=== PATIENT | female | born 1965 | race Caucasian/White ===

== ENCOUNTER 2019-11-10 10:53 | Emergency (ER) | payer SELFPAY ==
[2019-11-10 10:55] VITALS: BP 125/84; PULSE 75; RESP 18; TEMP 36.4; O2SAT 99; BMI 25.4
--- NOTE | 2019-11-10 11:00 | ED_ITS ---
Entered by Kyra Mora, acting as scribe for Nov 10, 2019 10:53 HPI - General Adult General: Chief complaint: Chest Pain Stated complaint: Sick Time Seen by Provider: 11/10/19 10:57 Source: patient Mode of arrival: ambulatory Limitations: no limitations History of Present Illness: HPI narrative: 54 yo female presents with nausea. pt states this started yesterday. pt states she has had swelling to feet but she has CHF so she just thought that was normal. pt has had abdomen tenderness. pt denies any other symptoms at this time. MD complaint: nausea Onset (ago): day(s) (last night) Location: abdomen Severity: moderate Pain Consistency: constant Relieving factors: none Exacerbating factors: movement Associated symptoms: Reports nausea; Deny chest pain, dyspnea, malaise or rash Review of Systems Const: Denies: fever, chills, body aches, change in appetite, fatigue or malaise ENMT: Denies: throat pain, ear pain, nasal discharge or nasal congestion Card: Denies: chest pain, edema, shortness of breath on exertion or shortness of breath when lying down Resp: Denies: shortness of breath, productive cough or non-productive cough GI: Reports: nausea : Denies: flank pain, difficulty urinating, painful urination, urinary frequency or urinary urgency Skin/Breast: Denies: rash or itching PFSH ED PFSH: Statuses (acute, chronic, etc) shown below reflect problem list status as previously entered and may not be historically accurate Medical History CHF (congestive heart failure) (Acute) History of anemia (Acute) History of chronic hypertension (Acute) History of CVA (cerebrovascular accident) (Acute) History of diabetes mellitus (Acute) History of pulmonary embolism (Acute) Social History Smoking and tobacco status: never smoked Physical Exam Const: COMMON NORMALS: no apparent distress GENERAL APPEARANCE: cooperative and comfortable ORIENTATION/CONSCIOUSNESS: Yes awake, Yes oriented to person, Yes oriented to place and Yes oriented to time HENMT: COMMON NORMALS: normocephalic, head/scalp atraumatic, hearing grossly normal bilaterally, external ears normal, EAC's normal, TM's normal bilaterally, nasal mucous membranes and turbinates normal, moist oral mucous membranes and oropharynx normal HEAD & SCALP: normocephalic and atraumatic NOSE: nasal mucous membranes and turbinates normal EXTERNAL EAR: Yes external ears normal EXTERNAL AUDITORY CANAL: EAC's normal TYMPANIC MEMBRANE: TM's normal bilaterally Eye: COMMON NORMALS: PERRL, EOMs intact bilaterally, conjunctivae normal and no scleral icterus CONJUNCTIVA: Yes conjunctivae normal PUPIL: Yes PERRL Neck/C-Spine: COMMON NORMALS: full ROM, no lymphadenopathy, supple and no JVD Lymph: LYMPHATIC: no lymphadenopathy noted and no lymphedema noted Resp: COMMON NORMALS: normal respiratory effort, no retractions, no use of accessory muscles and clear to auscultation bilaterally AUSCULTATION: clear to auscultation bilaterally Cardio: COMMON NORMALS: no JVD, regular rate, regular rhythm and no murmurs RATE: regular rate RHYTHM: regular rhythm Extremity: COMMON NORMALS: normal to inspection, normal capillary refill, no clubbing, cyanosis or edema, no calf tenderness and no pedal edema Neuro: SENSORIUM/ORIENTATION: Yes oriented to person, Yes oriented to place and Yes oriented to time Skin: COMMON NORMALS: no rashes or lesions noted GENERAL SKIN EXAM: no rashes or lesions noted Course ED course: Antiemetics PRN follow-up as needed return to ER if worsePatient's only persisting symptoms and nausea did improve some with antiemetics and fluids. Will discharge home clear liquid diet Vital Signs: Vital signs: Vital Signs Temperature 97.6 F 11/10/19 10:55 Pulse Rate 83 11/10/19 14:10 Respiratory Rate 15 11/10/19 14:10 Blood Pressure 115/77 11/10/19 14:10 Pulse Oximetry 98 11/10/19 14:10 [facility] - General Adult Lab Data: Labs: Lab Results 11/10/19 11/10/19 11/10/19 Range/Units 11:18 11:18 11:18 WBC 14.2 H (4.0-10.0) 10^3/ uL RBC 5.12 (4.1-5.3) 10^6/u L Hgb 14.4 (11.5-15.3) g/dL Hct 43.9 (37.0-47.0) % MCV 85.7 (81-99) fL MCH 28.1 (28.0-34.0) pg MCHC 32.8 (30.0-36.0) g/dL RDW 12.5 (12.1-15.1) % Plt Count 364 (130-400) 10^3/c mm MPV 9.8 (7.4-10.4) fL Neut % (Auto) 85.6 % Lymph % (Auto) 5.9 % Luce % (Auto) 6.5 % Eos % (Auto) 1.2 % Baso % (Auto) 0.4 % Neut # (Auto) 12.2 H (1.8-7.7) 10^3/u L Lymph # (Auto) 0.8 (0.8-4.8) 10^3/u L Luce # (Auto) 0.9 (0.2-0.9) 10^3/u L Eos # (Auto) 0.2 (0.0-0.8) 10^3/u L Baso # (Auto) 0.1 (0.0-0.1) 10^3/u L Nucleated RBC % (a uto) 0 % Nucleated RBCs # 0.0 /100WBC PT 13.50 H (10.5-13.3) SECO NDS INR 1.00 (0.8-1.2) Specimen Type Sample Site ABG pH (7.35-7.45) ABG pCO2 (35-45) mmHg ABG pO2 (80.0-100.0) mmH g ABG HCO3 (22-26) mmol/L ABG Base Excess (-2.0-2.0) mmol/ L Navarro Test Hematocrit (37-47) % O2 Delivery Device Detector Car Operator ID Sodium 138 (136-145) mmol/L Potassium 4.4 (3.5-5.1) mmol/L Chloride 99 (98-107) mmol/L Carbon Dioxide 23 (22-29) mmol/L Anion Gap 20.4 H (5-19) BUN 12 (6-20) mg/dL Creatinine 0.6 (0.5-0.9) mg/dL GFR Calculation 104.2 (90-130) mL/min Glucose 161 H (74-109) mg/dL Calcium 9.8 (8.6-10.0) mg/Dl Total Bilirubin 0.7 (0.15-1.2) mg/dL AST 16 (0-32) U/L ALT 7 (0-33) U/L Alkaline Phosphata se 95 (35-105) IU/L Troponin T Baselin e (0-10) ng/mL Troponin T 120 Min te-moak (0-10) ng/mL Delta Troponin T (0-10) ABS# Total Protein 7.7 (6.6-8.7) g/dL Albumin 5.2 (3.5-5.2) g/dL Globulin 2.5 (1.3-4.6) g/dL Lipase 58 (13-60) U/L Urine Color (Yellow) Urine Appearance (CLEAR) Urine pH (5-7) Ur Specific Gravit y (1.005-1.030) Urine Protein (Negative) Urine Glucose (UA) (Normal) Urine Ketones (Negative) Urine Occult Blood (Negative) Urine Nitrate (Negative) Urine Bilirubin (NEGATIVE) Urine Urobilinogen (Negative) mg/dL Ur Leukocyte Nancy ase (Negative) Urine RBC (0-2) /hpf Urine WBC (0-5) /hpf Ur Squamous Epith Cells (0-5) Urine Bacteria (NONE) 11/10/19 11/10/19 11/10/19 Range/Units 11:18 11:40 12:35 WBC (4.0-10.0) 10^3/ uL RBC (4.1-5.3) 10^6/u L Hgb (11.5-15.3) g/dL Hct (37.0-47.0) % MCV (81-99) fL MCH (28.0-34.0) pg MCHC (30.0-36.0) g/dL RDW (12.1-15.1) % Plt Count (130-400) 10^3/c mm MPV (7.4-10.4) fL Neut % (Auto) % Lymph % (Auto) % Luce % (Auto) % Eos % (Auto) % Baso % (Auto) % Neut # (Auto) (1.8-7.7) 10^3/u L Lymph # (Auto) (0.8-4.8) 10^3/u L Luce # (Auto) (0.2-0.9) 10^3/u L Eos # (Auto) (0.0-0.8) 10^3/u L Baso # (Auto) (0.0-0.1) 10^3/u L Nucleated RBC % (a uto) % Nucleated RBCs # /100WBC PT (10.5-13.3) SECO NDS INR (0.8-1.2) Specimen Type Arterial Sample Site Radial, right ABG pH 7.41 (7.35-7.45) ABG pCO2 32.9 L (35-45) mmHg ABG pO2 88.5 (80.0-100.0) mmH g ABG HCO3 20.9 L (22-26) mmol/L ABG Base Excess -2.9 L (-2.0-2.0) mmol/ L Navarro Test Pos Hematocrit 44.3 (37-47) % O2 Delivery Device Room air Detector Car Operator ID jmn Sodium (136-145) mmol/L Potassium (3.5-5.1) mmol/L Chloride (98-107) mmol/L Carbon Dioxide (22-29) mmol/L Anion Gap (5-19) BUN (6-20) mg/dL Creatinine (0.5-0.9) mg/dL GFR Calculation (90-130) mL/min Glucose (74-109) mg/dL Calcium (8.6-10.0) mg/Dl Total Bilirubin (0.15-1.2) mg/dL AST (0-32) U/L ALT (0-33) U/L Alkaline Phosphata se (35-105) IU/L Troponin T Baselin e 10 (0-10) ng/mL Troponin T 120 Min te-moak (0-10) ng/mL Delta Troponin T (0-10) ABS# Total Protein (6.6-8.7) g/dL Albumin (3.5-5.2) g/dL Globulin (1.3-4.6) g/dL Lipase (13-60) U/L Urine Color Yellow (Yellow) Urine Appearance Cloudy (CLEAR) Urine pH 5 (5-7) Ur Specific Gravit y 1.020 (1.005-1.030) Urine Protein Neg (Negative) Urine Glucose (UA) Norm (Normal) Urine Ketones Negative (Negative) Urine Occult Blood Neg (Negative) Urine Nitrate Negative (Negative) Urine Bilirubin Neg (NEGATIVE) Urine Urobilinogen Norm (Negative) mg/dL Ur Leukocyte Nancy ase Negative (Negative) Urine RBC None (0-2) /hpf Urine WBC 0-4 H (0-5) /hpf Ur Squamous Epith Cells 15-25 H (0-5) Urine Bacteria 1+ H (NONE) 11/10/19 Range/Units 13:12 WBC (4.0-10.0) 10^3/ uL RBC (4.1-5.3) 10^6/u L Hgb (11.5-15.3) g/dL Hct (37.0-47.0) % MCV (81-99) fL MCH (28.0-34.0) pg MCHC (30.0-36.0) g/dL RDW (12.1-15.1) % Plt Count (130-400) 10^3/c mm MPV (7.4-10.4) fL Neut % (Auto) % Lymph % (Auto) % Luce % (Auto) % Eos % (Auto) % Baso % (Auto) % Neut # (Auto) (1.8-7.7) 10^3/u L Lymph # (Auto) (0.8-4.8) 10^3/u L Luce # (Auto) (0.2-0.9) 10^3/u L Eos # (Auto) (0.0-0.8) 10^3/u L Baso # (Auto) (0.0-0.1) 10^3/u L Nucleated RBC % (a uto) % Nucleated RBCs # /100WBC PT (10.5-13.3) SECO NDS INR (0.8-1.2) Specimen Type Sample Site ABG pH (7.35-7.45) ABG pCO2 (35-45) mmHg ABG pO2 (80.0-100.0) mmH g ABG HCO3 (22-26) mmol/L ABG Base Excess (-2.0-2.0) mmol/ L Navarro Test Hematocrit (37-47) % O2 Delivery Device Detector Car Operator ID Sodium (136-145) mmol/L Potassium (3.5-5.1) mmol/L Chloride (98-107) mmol/L Carbon Dioxide (22-29) mmol/L Anion Gap (5-19) BUN (6-20) mg/dL Creatinine (0.5-0.9) mg/dL GFR Calculation (90-130) mL/min Glucose (74-109) mg/dL Calcium (8.6-10.0) mg/Dl Total Bilirubin (0.15-1.2) mg/dL AST (0-32) U/L ALT (0-33) U/L Alkaline Phosphata se (35-105) IU/L Troponin T Baselin e (0-10) ng/mL Troponin T 120 Min te-moak 9.22 (0-10) ng/mL Delta Troponin T -0.78 L (0-10) ABS# Total Protein (6.6-8.7) g/dL Albumin (3.5-5.2) g/dL Globulin (1.3-4.6) g/dL Lipase (13-60) U/L Urine Color (Yellow) Urine Appearance (CLEAR) Urine pH (5-7) Ur Specific Gravit y (1.005-1.030) Urine Protein (Negative) Urine Glucose (UA) (Normal) Urine Ketones (Negative) Urine Occult Blood (Negative) Urine Nitrate (Negative) Urine Bilirubin (NEGATIVE) Urine Urobilinogen (Negative) mg/dL Ur Leukocyte Nancy ase (Negative) Urine RBC (0-2) /hpf Urine WBC (0-5) /hpf Ur Squamous Epith Cells (0-5) Urine Bacteria (NONE) Imaging Data^: CXR: Radiologist's impression: [place] [address] XRay Report Signed Patient: Candi Fuller #: [id number] : 1965Acct#:[id number] Age/Sex: 54 / FADM Date: 11/10/19 Loc: ERRoom/Bed: Attending Dr: Ordering Provider/Ordering MD: Saud Esposito DO Date of Service: 11/10/19 Procedure(s): XR chest 1V portable [id number] Accession Number(s): [id number] Report Number: [id number] WS: [id number] Portable AP upright chest, 11/10/2019 Clinical Data: chf Comparison: Portable chest, 11/05/2017. Findings: No nodules, masses or effusions are seen. The heart is normal. The pulmonary vascularity is not increased. No pneumonia or pneumothorax is seen. There may be calcific bursitis or tendinitis of the left greater tuberosity. XR/XR chest 1V portable [id number] Impression: Negative chest. Dictated By:Linda Vale MD Signed By:Linda Vale MDSigned Date/Time:11/10/191214 DD/ 1213 Discharge Plan Discharge Patient Disposition: Home, Self-Care Clinical Impression: Gastroenteritis Condition: Stable Prescriptions: New Zofran 4 mg tablet 4 mg PO Q6H PRN (Reason: nausea and vomiting) Qty: 14 RF: 0 Referrals: Renu Knowles MD [Primary Care Provider] - Discharge Diet: Clear Liquid Discharge Activity: Increase activity as tolerated Activity Restrictions/Additional Instructions: Clear liquid diet for 24 hours then advance as tolerated Discharge Date/Time: 11/10/19 14:11 Coding Level of Care Code ED Screw Down for Chg Fwd Exam Problem Focused The documentation recorded by the Morgan albert Bridget Annette, accurately reflects the service I personally performed and the decisions made by Cate lemos Curtis L, Nov 10, 2019 10:53
--- NOTE | 2019-11-10 11:08 | XR_ITS ---
WS: [id number] Portable AP upright chest, 11/10/2019 Clinical Data: chf Comparison: Portable chest, 11/05/2017. Findings: No nodules, masses or effusions are seen. The heart is normal. The pulmonary vascularity is not increased. No pneumonia or pneumothorax is seen. There may be calcific bursitis or tendinitis of the left greater tuberosity. XR/XR chest 1V portable [id number] Impression: Negative chest.
[2019-11-10 11:23] LABS: Basophils # 0.1 10^3/uL (0.0-0.1); Basophils % 0.4 %; Eosinophils # 0.2 10^3/uL (0.0-0.8); Eosinophils % 1.2 %; Hematocrit 43.9 % (37.0-47.0); Hemoglobin 14.4 g/dL (11.5-15.3); Lymphocytes # 0.8 10^3/uL (0.8-4.8); Lymphocytes % 5.9 %; Mean Corpuscular HGB Conc 32.8 g/dL (30.0-36.0); Mean Corpuscular Hemoglobin 28.1 pg (28.0-34.0); Mean Corpuscular Volume 85.7 fL (81-99); Mean Platelet Volume 9.8 fL (7.4-10.4); Monocytes # 0.9 10^3/uL (0.2-0.9); Monocytes % 6.5 %; Neutrophils # 12.2 10^3/uL (1.8-7.7); Neutrophils % 85.6 %; Nucleated Red Blood Cells % 0 %; Platelet Count 364 10^3/cmm (130-400); Red Blood Count 5.12 10^6/uL (4.1-5.3); Red Cell Distribution Width 12.5 % (12.1-15.1); White Blood Count 14.2 10^3/uL (4.0-10.0)
--- NOTE | 2019-11-10 11:35 | ECG_ITS ---
Measurements Intervals [place] Rate: 68 P: 44 OK: 177 QRS: -43 QRSD: 140 T: 61 QT: 437 QTc: 467 SINUS RHYTHM LEFT AXIS DEVIATION [QRS AXIS < -30] LEFT BUNDLE BRANCH BLOCK [120+ ms QRS DURATION, 80+ ms Q/S IN V1/V2, 85+ ms R IN I/aVL/V5/V6] Compared to ECG 12/22/2018 13:02:49 No significant changes Electronically Signed On 11-11-2019 11:24:04 RADIO MECHANIC HELPER by Garcia Camacho M.D. [email or web address]
[2019-11-10 11:49] LABS: Alanine Aminotransferase 7 U/L (0-33); Albumin Level 5.2 g/dL (3.5-5.2); Alkaline Phosphatase 95 IU/L (35-105); Anion Gap 20.4 (5-19); Aspartate Amino Transferase 16 U/L (0-32); Blood Urea Nitrogen 12 mg/dL (6-20); Calcium 9.8 mg/Dl (8.6-10.0); Carbon Dioxide 23 mmol/L (22-29); Chloride 99 mmol/L (98-107); Globulin 2.5 g/dL (1.3-4.6); Glomerular Filtration Rate 104.2 mL/min (90-130); Glucose 161 mg/dL (74-109); Lipase 58 U/L (13-60); Potassium 4.4 mmol/L (3.5-5.1); Sodium 138 mmol/L (136-145); Total Bilirubin 0.7 mg/dL (0.15-1.2); Total Protein 7.7 g/dL (6.6-8.7)
[2019-11-10 11:56] LABS: ABG PCO2 32.9 mmHg (35-45); ABG PH Result 7.41 (7.35-7.45); Arterial Blood Gas Hematocrit 44.3 % (37-47); Base Excess ABG -2.9 mmol/L (-2.0-2.0); Blood Gas Allen Test Pos; Blood Gas Sample Site Radial, right; Blood Gas Sample Type Arterial; HCO3 ABG 20.9 mmol/L (22-26); Oxygen Device ROOM AIR; PO2 ABG 88.5 mmHg (80.0-100.0)
[2019-11-10 12:07] LABS: Troponin(5th) Baseline 10 ng/mL (0-10)
[2019-11-10 12:52] LABS: Add Urine Microscopic? YES; Bilirubin Urine Neg (NEGATIVE); Blood Urine Neg (Negative); Glucose Urine UA Norm (Normal); Ketones Urine Negative (Negative); Leukocyte Esterase Urine Negative (Negative); Nitrate Urine Negative (Negative); Protein Urine Neg (Negative); Urine Appearance Cloudy (CLEAR); Urine Color Yellow (Yellow); Urobilinogen Urine Norm (Negative); pH Urine 5 (5-7)
[2019-11-10 12:57] LABS: Squamous Epithelial Cell Urine 15-25 (0-5); WBC Urine 0-4 /hpf (0-5)
[2019-11-10 12:58] LABS: Add Urine Culture? No; Bacteria Urine 1+
[2019-11-10 13:35] LABS: Troponin 5 2HR 9.22 ng/mL (0-10)
[2019-11-10 13:36] LABS: Troponin 5 2HR Delta -0.78 ABS# (0-10)
[2019-11-10 14:10] VITALS: BP 115/77; PULSE 83; RESP 15; O2SAT 98
--- NOTE | 2019-11-10 17:35 | ECG_ITS ---
Measurements Intervals [place] Rate: 71 P: 42 CO: 175 QRS: -41 QRSD: 137 T: 99 QT: 435 QTc: 476 SINUS RHYTHM LEFT AXIS DEVIATION [QRS AXIS < -30] Left bundle branch block Compared to ECG 12/22/2018 13:02:49 Electronically Signed On 11-11-2019 11:30:27 LANDSCAPE ARTIST by Garcia Camacho M.D. [email or web address]
== END 2019-11-10 14:11 | disposition home or self-care (01) ==
PROVIDERS: Emergency Provider Family Medicine; Family Provider Internal Medicine; PCP Internal Medicine
DX: K52.9 Noninfective gastroenteritis and colitis, unspecified (principal); I50.9 Heart failure, unspecified; I11.0 Hypertensive heart disease with heart failure; Z86.73 Personal history of transient ischemic attack (TIA), and cerebral infarction without residual deficits; E11.9 Type 2 diabetes mellitus without complications
CPT/HCPCS: 36415; 36600; 71045; 80053; 81003; 82803; 83690; 84484; 85025; 85610; 93005; 99283; A9270

== ENCOUNTER 2019-12-06 12:47 | Outpatient (CLI) | payer SELFPAY ==
--- NOTE | 2019-12-06 13:12 | CT_ITS ---
WS: [id number] CT ABDOMEN PELVIS TECHNIQUE: Contrast-enhanced CT of the abdomen and pelvis with coronal and sagittal reformatted image s. CLINICAL INFORMATION: WEIGHT LOSS, EPIGASTRIC ABDOMINAL PAIN COMPARISON: None. DLP: [id number] scans at [facility] use at least one of these dose optimization techniques: automat ed exposure control; mA and/or kV adjustment per patient size (includes targeted exams where dose is matched to clinical indication); or iterative reconstruction. FINDINGS: Diffuse fatty infiltration of the liver. Portal vein and splenic vein are patent. Cholecystectomy cli ps. Normal spleen. Normal GE junction. Normal pancreas. Normal visualized common bile duct. Adrenal g lands are normal. Normal renal parenchymal enhancement. Lung bases are well aerated. Normal bilatera l renal parenchymal enhancement. No hydronephrosis. No periaortic lymphadenopathy. Small fat-containi ng umbilical hernia. Moderate sigmoid constipation. Diverticulosis. No evidence of acute diverticulitis. Fibroid uterus. N o free fluid in the pelvis. No pelvic lymphadenopathy. No inguinal lymphadenopathy. Grade 1 anterolis thesis L5 on S1 bilateral pars defects. CT/CT abdomen pelvis w con* [id number] IMPRESSION: 1. Diffuse fatty infiltration of the liver. 2. Interval cholecystectomy. Unremarkable common bile duct. 3. Diverticulosis.. No evidence of acute diverticulitis. 4. No abdominal or pelvic lymphadenopathy. 5. Heterogeneous fibroid uterus. 6. Moderate sigmoid constipation.
[2019-12-06] MEDS: iohexol 300 mg/mL 50 mL Btl PO (13:30)
[2019-12-06] MEDS: iohexol 300 mg/mL 100 mL Btl IV (14:34)
== END 2019-12-06 12:48 | disposition home or self-care (01) ==
LOC: RADWPI 12:53
PROVIDERS: Family Provider Internal Medicine; PCP Internal Medicine; Visit Provider Internal Medicine
DX: R63.4 Abnormal weight loss (principal); K76.0 Fatty (change of) liver, not elsewhere classified; K57.90 Diverticulosis of intestine, part unspecified, without perforation or abscess without bleeding; D25.9 Leiomyoma of uterus, unspecified; K59.09 Other constipation
CPT/HCPCS: 74177; Q9967

== ENCOUNTER 2020-01-01 13:06 | Outpatient (CLI) | payer SELFPAY ==
--- NOTE | 2020-01-01 13:14 | USCV_ITS ---
Candi Fuller Age: 54 Gender: F : 1965 Exam Date: 01/01/2020 13:40 Ordering Phys: Shiva Heart MD ([email or web address]) Technologist: Lam Rivers Exam Location: [facility] – [place] Indication: DILATED CARDIOMYO BP: 150 / 85 HR: 91 Rhythm: Sinus Technical Quality: Fair MEASUREMENTS (Male / Female) Normal Values 2D ECHO LV Diastolic Diameter PLAX 4.7 cm 4.2 - 5.9 / 3.9 - 5.3 cm LV Systolic Diameter PLAX 3.0 cm IVS Diastolic Thickness 0.9 cm 0.6 - 1.0 / 0.6 - 0.9 cm IVS Systolic Thickness 1.3 cm LVPW Diastolic Thickness 1.1 cm 0.6 - 1.0 / 0.6 - 0.9 cm LVPW Systolic Thickness 1.3 cm LVOT Diameter 2.0 cm LV Ejection Fraction 2D Teich 64.8 % LV Ejection Fraction MOD 2C 63.5 % LV Ejection Fraction 2C AL 63.3 % LA Diameter 3.5 cm LA Width 4.2 cm LA Height 5.3 cm RA Width 3.2 cm RA Height 4.3 cm Aorta at Sinotubular Diameter 2.2 cm M-MODE LV Diastolic Diameter MM 4.7 cm 4.2 - 5.9 / 3.9 - 5.3 cm LV Systolic Diameter MM 3.3 cm LV Ejection Fraction MM Teich 56.4 % IVS Diastolic Thickness MM 1.0 cm 0.6 - 1.0 / 0.6 - 0.9 cm IVS Systolic Thickness MM 1.4 cm LVPW Diastolic Thickness MM 1.3 cm 0.6 - 1.0 / 0.6 - 0.9 cm LVPW Systolic Thickness MM 1.5 cm RV Diastolic Diameter MM 1.9 cm Aortic Annulus Diameter 2.8 cm LA Ao Ratio MM 1.2 MV E Point Septal Separation 0.9 cm DOPPLER AV Peak Velocity 216.0 cm/s LVOT Peak Velocity 88.0 cm/s AV Area Cont Eq vti 1.3 cm squared AV Area Cont Eq pk 1.3 cm squared MV Area PHT 5.0 cm squared Mitral E to A Ratio 0.8 MV E' Velocity 7.0 cm/s Mitral E to MV E' Ratio 10.9 Mitral E to LV E' Lateral Ratio 13.4 Mitral E to LV E' Septal Ratio 9.2 TR Peak Velocity 225.0 cm/s TR Peak Gradient 20.3 mmHg TV Peak E Velocity 144.0 cm/s Right Atrial Pressure 3.0 mmHg Pulmonary Artery Systolic Pressu 23.3 mmHg FINDINGS Left Ventricle Slightly dyskinetic basal inferior wall segment. Mild diffuse hypokinesia of the septum and the anteroseptal segments. Normal LV size with a diminished ejection fraction of around 45-50% Right Ventricle The right ventricle is normal in size and function. Right Atrium The right atrium is normal in size. Left Atrium Left atrium, upper limit of normal size Mitral Valve Thickened mitral valve. Trace mitral valve regurgitation. Aortic Valve Features of aortic valve sclerosis Tricuspid Valve No gross abnormalities noted.trace tricuspid valve regurgitation. Pulmonic Valve Structurally normal pulmonic valve without significant stenosis. There is no pulmonic regurgitation. Pericardium Normal pericardium without effusion. Aorta Normal ascending aorta dimension. CONCLUSIONS Normal LV size with a diminished ejection fraction of 45 to 50%. Wall motion normalities as mentioned above. Left atrium, upper limit of normal size. Features of aortic valve sclerosis. Trace of mitral and tricuspid regurgitation There is no pericardial effusion. There are no intracardiac masses. Compared to the previous study from 12/20/2017, there is some improvement of the LV ejection fraction Dr Shiva Heart MD FAC (Electronically Signed) Final Date: 03 January 2020 08:41 S
== END 2020-01-01 13:07 | disposition home or self-care (01) ==
LOC: US 13:08
PROVIDERS: Family Provider Internal Medicine; PCP Internal Medicine; Visit Provider Internal Medicine Cardiovascular Disease
DX: I42.0 Dilated cardiomyopathy (principal); I08.3 Combined rheumatic disorders of mitral, aortic and tricuspid valves
CPT/HCPCS: 93306

== ENCOUNTER 2021-01-30 13:53 | Outpatient (CLI) | payer SELFPAY ==
--- NOTE | 2021-01-30 14:15 | USCV_ITS ---
Candi Fuller Age: 55 Gender: F : 1965 Exam Date: 01/30/2021 14:04 Ordering Phys: Shiva Heart MD ([email or web address]) Technologist: MARIAN [place] [facility] [place]ication: Non healing ulcers Risk Factors: Previous Vascular Surgery: RIGHT LEFT BP: 147.0 / 89.00 BP: 143.0/ 83.00 0 0 Waveform Velocity (cm/s) Velocity (cm/s) Waveform Triphasic 88.9 Iliac Prox 80.7 Triphasic Triphasic 86.4 Iliac Mid 99.1 Triphasic Triphasic 81.0 Iliac Distal 93.5 Triphasic Triphasic 89.4 BAR AND FILLER ASSEMBLER 114.3 Triphasic Triphasic 101.2 SFA Prox 98.1 Triphasic Triphasic 93.3 SFA Mid 93.7 Triphasic Triphasic 90.7 SFA Dist 79.2 Triphasic Triphasic 126.2 POP 102.5 Triphasic Triphasic 40.2 CLINIC ADMINISTRATOR 45.0 Triphasic Triphasic 33.3 DPA 27.4 Triphasic 1.0 JYOTHI 1.0 FINDINGS RT CLINIC ADMINISTRATOR 150, RT DPA 140 LT CLINIC ADMINISTRATOR 152, LT DPA 134 Normal resting ABIs bilaterally, with JYOTHI of 1.0 Normal Doppler waveforms bilaterally Intimal thickening in the iliac arteries bilaterally CONCLUSIONS No significant arterial obstruction bilaterally, based on the above findings Dr Shiva Heart MD [facility] (Electronically Signed) Final Date: 30 January 2021 20:37 S
== END 2021-01-30 13:54 | disposition home or self-care (01) ==
PROVIDERS: PCP Internal Medicine; Visit Provider Internal Medicine Cardiovascular Disease
DX: L98.499 Non-pressure chronic ulcer of skin of other sites with unspecified severity (principal)
CPT/HCPCS: 93925

== ENCOUNTER 2022-03-06 14:39 | Emergency (ER) | payer MEDICAID, SELFPAY ==
[2022-03-06 14:57] VITALS: BP 153/79; PULSE 99; RESP 20; TEMP 37.3; O2SAT 99; BMI 28.9
--- NOTE | 2022-03-06 15:33 | XR_ITS ---
WS: [id number] XR foot RT min 3V* [id number] REASON FOR EXAM: swelling, redness FINDINGS: No fracture or focal bone lesion. No periosteal reaction or erosion. Mild joint space narrowing and subchondral sclerosis in the DIP and PIP joints of the toes. This is m ost prominent in the DIP joint of the great toe. Similar arthropathy is present in the metatarsal-phalangeal joint of the great toe. Joint spaces of the hindfoot and midfoot are intact and relatively well-preserved. Small calcaneal plantar and Achilles enthesophytes. XR/XR foot RT min 3V* [id number] IMPRESSION: No acute bony or joint abnormality identified. 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
--- NOTE | 2022-03-06 16:16 | ED_ITS ---
HPI - Extremity Problem General: Chief complaint: Extremity Injury, Lower Stated complaint: Right foot swelling and hurting Time Seen by Provider: 03/06/22 16:06 History of Present Illness: Patient is a 56-year-old female comes to the ED with right foot swelling and pain. Past medical history of peripheral neuropathy and is prediabetic. Patient has had a wound on the bottom of her right foot for the past 3 months. She has seen her primary care physician back when the wound started and she was put on an antibiotic. She took a full course of antibiotic and set her foot and wound has been improving. The wound to the bottom of her foot has not completely healed up but is much better than it was. She finished her last dose of antibiotics several months ago. She noticed 2 days ago her right foot started getting red, swollen and tender to the touch. Denies any other symptoms such as chest pain, cough, hemoptysis, shortness of breath, calf tenderness, nausea/vomiting or fevers. Associated symptoms: Deny chest pain, fever(s) or rash Review of Systems Const: Denies: fever(s), chills or fatigue Eyes: Denies: change in vision or eye discomfort ENMT: Denies: throat pain, odynophagia, nasal discharge or nasal congestion Card: Denies: chest pain, palpitations, edema, swelling of feet/ankles, dyspnea on exertion or orthopnea Resp: Denies: dyspnea, productive cough or non-productive cough GI: Denies: abdominal pain, nausea, vomiting, diarrhea, constipation or hematochezia : Denies: flank pain, dysuria or hematuria Musc: Denies: neck pain, back pain or extremity swelling Skin/Breast: Reports: new lesions (Right foot ulcer has surrounding erythema and warmth) and lesions (Foot ulcer that is improving); Denies: rash Neuro: Denies: headache(s), numbness in extremities or weakness in extremities PFS ED PFSH: Medical History Benign essential HTN CHF (congestive heart failure) Chronic systolic CHF (congestive heart failure), NYHA class 2 Dilated cardiomyopathy History of anemia History of chronic hypertension History of CVA (cerebrovascular accident) History of diabetes mellitus History of pulmonary embolism Near syncope Pulmonary embolism and infarction Pt was told to have a problem with blood clot and was advised to take the OAC indefinitely TIA (transient ischemic attack) Family History Other Adopted Unknown family medical history Social History Smoking and tobacco status: never smoked Alcohol intake: never Physical Exam Const: COMMON NORMALS: no acute distress, patient oriented x3, healthy appearing and alert GENERAL APPEARANCE: cooperative and comfortable HENMT: COMMON NORMALS: normocephalic HEAD & SCALP: normocephalic MOUTH: Normal oral and palatal mucosa present THROAT: posterior oropharynx normal and uvula midline Neck/C-Spine: COMMON NORMALS: supple GENERAL: Yes normal visual inspection Resp: COMMON NORMALS: normal respiratory effort, No retractions, No use of accessory muscles and clear to auscultation bilaterally AUSCULTATION: clear to auscultation bilaterally Cardio: COMMON NORMALS: regular rate, regular rhythm, S1 normal heart sound present, S2 normal heart sound present, No gallops present (Cardio), No clicks present (Cardio), No murmurs present (Cardio) and Peripheral pulses 2+ throughout RATE: regular rate RHYTHM: regular rhythm HEART SOUNDS: S1 normal heart sound present and S2 normal heart sound present PERIPHERAL PULSES: Peripheral pulses 2+ throughout GI: COMMON NORMALS: Normal to inspection, nondistended, normoactive bowel sounds present, Soft to palpation, non-tender and no masses PALPATION: Yes Soft to palpation : COMMON NORMALS: Yes no CVA tenderness BLADDER/KIDNEY EXAM: Yes no CVA tenderness Back/Pelvis: COMMON NORMALS: no CVA tenderness Extremity: NARRATIVE EXTREMITY EXAM: Right foot-plantar side of foot near the lateral ball of foot she has a very small stage II ulcer with limited skin breakdown. No pus or discharge seen. There is surrounding erythema, warmth and tenderness noted. Findings suggestive of a developing cellulitis around foot ulcer. Neuro: COMMON NORMALS: patient oriented x3 and moves all extremities SENSORIUM/ORIENTATION: Yes alert Skin: GENERAL SKIN EXAM: dry skin Course Vital Signs: Vital signs: Vital Signs Temperature 99.1 F 03/06/22 14:57 Pulse Rate 99 03/06/22 14:57 Respiratory Rate 20 H 03/06/22 14:57 Blood Pressure 153/79 03/06/22 14:57 Pulse Oximetry 99 03/06/22 14:57 MDM - Extremity (Nontraumatic) Medical Decision Making Patient is a 56-year-old female comes to the ED with right foot redness pain and swelling. History of peripheral neuropathy and is prediabetic. She has a ulcer on the bottom of her right foot that she has been dealing with for the past 3 months. She said the ulcer has been improving and her primary care physician has been following it. Within the last 2 days she started developing redness, warmth and swelling in her right foot. No purulent drainage from ulcer on bottom of foot. Vitals are stable and patient is afebrile. exam of patient shows a superficial stage II ulcer with very limited skin breakdown. No pus or discharge seen. The ulcer does have some surrounding erythema warmth and tenderness just suggestive of a developing cellulitis. X-ray of right foot showed no acute bony or joint abnormality. Patient was given a dose of IM Rocephin here in the ED and then she was stable for discharge home for outpatient treatment with an antibiotic. I placed an order with case management for patient be referred to wound care clinic for follow-up. She was told to follow-up with her PCP in the next week for reevaluation. Return to ED precautions given. Patient understood and agreed with plan. Lab Data Radiology Impressions Foot X-Ray 03/06/22 15:33 IMPRESSION: No acute bony or joint abnormality identified. 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 Discharge Plan Discharge Patient Disposition: Home Clinical Impression: Cellulitis of foot Foot ulcer Qualifiers: Laterality: right Non-pressure ulcer stage: limited to breakdown of skin Qualified Code(s): L97.511 - Non-pressure chronic ulcer of other part of right foot limited to breakdown of skin Condition: Stable Prescriptions: New clindamycin HCl 150 mg capsule 300 mg PO QID 7 Days Qty: 56 0RF No Action omeprazole 40 mg capsule,delayed release(DR/EC) 40 mg PO DAILY 0RF Repatha SureClick 140 mg/mL pen injector SUBCUT 0RF Eliquis 2.5 mg tablet 2.5 mg PO BID 0RF furosemide 40 mg tablet 40 mg PO BID 0RF potassium chloride [Klor-Con M20] 20 mEq tablet,ER particles/crystals 20 meq PO BID 0RF valsartan 320 mg tablet 320 mg PO DAILY 0RF spironolactone 25 mg tablet 25 mg PO DAILY 0RF loratadine 10 mg tablet 10 mg PO DAILY 0RF calcium carbonate-vitamin D3 [Caltrate with Vitamin D3] 600 mg(1,500mg) -800 unit tablet 1 tab PO DAILY 0RF albuterol sulfate 90 mcg/actuation HFA aerosol inhaler 1 inh INHALATION QID 0RF amlodipine 10 mg tablet 10 mg PO DAILY 30 Days Qty: 30 5RF atorvastatin [Lipitor] 80 mg tablet 80 mg PO DAILY 30 Days Qty: 30 5RF metformin 500 mg tablet extended release 24hr 500 mg PO DAILY 0RF cephalexin 500 mg capsule 500 mg PO TID 0RF sulfamethoxazole-trimethoprim [Bactrim DS] 800-160 mg tablet 1 tab PO BID 0RF hydralazine 25 mg tablet 25 mg PO TID 30 Days Qty: 90 5RF metoprolol tartrate 100 mg tablet 100 mg PO BID Qty: 180 1RF Rx Instructions: dose increase Zofran 4 mg tablet 4 mg PO Q6H PRN (Reason: nausea and vomiting) Qty: 14 0RF Discharge Orders: Discharge ED (Routine); Ordered 03/06/22 Ordered By: Jeanmarie Dubois Referrals: Renu Knowles MD [Primary Care Provider] - Discharge Diet: Regular Discharge Activity: Increase activity as tolerated Patient Instructions: Cellulitis (ED), Diabetic Foot Ulcers (ED) Activity Restrictions/Additional Instructions: Follow-up with medical provider as directed in the next 5 to 7 days reevaluation. Case management should be contacted in the next several days as well to set up an appointment with wound care clinic for follow-up on foot ulcer. Take medications as prescribed. Return to the ER or your medical provider if condition worsens. Please read and understand discharge instructions. Thank you for choosing [facility] for your healthcare needs today. Please realize this is an emergency room and that we are providing you with a medical screening exam and this may not be complete and all inclusive of all the testing and or work up that you may need to determine your ailment or severity of your illness. It is very important that you follow up as instructed or that you return to the Emergency Department should you have concerns or if your condition changes or worsens in any way. Coding Level of Care Code ED Front Maker Lockstitch for Cortney Fwd Exam Comprehensive
[2022-03-06] MEDS: cefTRIAXone 1,000 MG in lidocaine 1% 2.1 ML 150 MG IM (16:46)
[2022-03-06 16:55] VITALS: BP 145/76; PULSE 97; RESP 17; TEMP 37.2; O2SAT 99
[2022-03-06 16:57] VITALS: BP 145/76; PULSE 97; RESP 17; TEMP 37.2; O2SAT 99
--- NOTE | 2022-03-09 12:47 | DCPLANNER ---
Addendum entered by Milly Storey 03/13/22 09:06: Patient had a follow up appointment scheduled for 03.11.22 with Wound Care - patient did attend appointment. Original Note: cocktail lounge manager had message to schedule a follow up appointment for patient with Wound Care. cocktail lounge manager sent patients information to the front office staff at wound care. Patients information will be printed and reviewed. Clinic will call patient with appointment information.
== END 2022-03-06 16:50 | disposition home or self-care (01) ==
PROVIDERS: Emergency Provider Physician Assistant; PCP Internal Medicine
DX: L03.115 Cellulitis of right lower limb (principal); L97.511 Non-pressure chronic ulcer of other part of right foot limited to breakdown of skin
CPT/HCPCS: 73630; 96372; 99283; J0696

== ENCOUNTER → 2022-03-11 08:07 | Outpatient (BNVA) | payer MEDICAID, SELFPAY | PROVIDERS: PCP Internal Medicine; Visit Provider Thoracic Surgery (Cardiothoracic Vascular Surgery) | DX: I96 Gangrene, not elsewhere classified (principal); E11.621 Type 2 diabetes mellitus with foot ulcer; L89.891 Pressure ulcer of other site, stage 1 | CPT/HCPCS: 11042; A6250 ==

== ENCOUNTER → 2022-03-11 09:52 | Outpatient (BNVA) | payer MEDICAID, SELFPAY | PROVIDERS: PCP Internal Medicine; Visit Provider Thoracic Surgery (Cardiothoracic Vascular Surgery) | DX: Z76.89 Persons encountering health services in other specified circumstances (principal) | CPT/HCPCS: 87070; 87077; 87176; 87186; 87205 ==

== ENCOUNTER → 2022-03-16 08:20 | Outpatient (BNVA) | payer MEDICAID, SELFPAY | PROVIDERS: PCP Internal Medicine; Visit Provider Thoracic Surgery (Cardiothoracic Vascular Surgery) | DX: I96 Gangrene, not elsewhere classified (principal); E11.621 Type 2 diabetes mellitus with foot ulcer; L89.891 Pressure ulcer of other site, stage 1 | CPT/HCPCS: 11044 ==

== ENCOUNTER → 2022-03-16 09:05 | Outpatient (BNVA) | payer MEDICAID, SELFPAY | PROVIDERS: PCP Internal Medicine; Visit Provider Thoracic Surgery (Cardiothoracic Vascular Surgery) | DX: E11.621 Type 2 diabetes mellitus with foot ulcer (principal); L97.521 Non-pressure chronic ulcer of other part of left foot limited to breakdown of skin; I96 Gangrene, not elsewhere classified | CPT/HCPCS: 87070; 87077; 87176; 87186; 87205 ==

== ENCOUNTER → 2022-03-18 09:16 | Outpatient (BNVA) | payer MEDICAID, SELFPAY | PROVIDERS: PCP Internal Medicine; Visit Provider Thoracic Surgery (Cardiothoracic Vascular Surgery) | DX: I96 Gangrene, not elsewhere classified (principal); E11.621 Type 2 diabetes mellitus with foot ulcer; L89.891 Pressure ulcer of other site, stage 1 | CPT/HCPCS: 11042 ==

== ENCOUNTER → 2022-03-20 08:31 | Outpatient (BNVA) | payer MEDICAID, SELFPAY | PROVIDERS: PCP Internal Medicine; Visit Provider Surgery | DX: I96 Gangrene, not elsewhere classified (principal); E11.621 Type 2 diabetes mellitus with foot ulcer; L89.891 Pressure ulcer of other site, stage 1 | CPT/HCPCS: 11043 ==

== ENCOUNTER → 2022-03-24 13:56 | Outpatient (BNVA) | payer MEDICAID, SELFPAY | PROVIDERS: PCP Internal Medicine; Visit Provider Nurse Practitioner Family | DX: I96 Gangrene, not elsewhere classified (principal); E11.621 Type 2 diabetes mellitus with foot ulcer; L89.891 Pressure ulcer of other site, stage 1 | CPT/HCPCS: 11042 ==

== ENCOUNTER → 2022-03-30 13:19 | Outpatient (BNVA) | payer MEDICAID, SELFPAY | PROVIDERS: PCP Internal Medicine; Visit Provider Thoracic Surgery (Cardiothoracic Vascular Surgery) | DX: I96 Gangrene, not elsewhere classified (principal); E11.621 Type 2 diabetes mellitus with foot ulcer; L89.891 Pressure ulcer of other site, stage 1 | CPT/HCPCS: 11042 ==

== ENCOUNTER 2022-03-31 14:45 | Outpatient (CLI) | payer MEDICAID, SELFPAY ==
[2022-03-31 15:36] LABS: Basophils # 0.1 10^3/uL (0.0-0.1); Basophils % 0.9 %; Eosinophils # 0.3 10^3/uL (0.0-0.8); Eosinophils % 2.1 %; Hematocrit 36.7 % (37.0-47.0); Hemoglobin 11.5 g/dL (11.5-15.3); Lymphocytes # 2.5 10^3/uL (0.8-4.8); Lymphocytes % 18.2 %; Mean Corpuscular HGB Conc 31.3 g/dL (30.0-36.0); Mean Corpuscular Hemoglobin 27.1 pg (28.0-34.0); Mean Corpuscular Volume 86.4 fl (81-99); Mean Platelet Volume 10.5 fL (7.4-10.4); Monocytes # 0.9 10^3/uL (0.2-0.9); Monocytes % 6.6 %; Neutrophils # 9.99 10^3/uL (1.8-7.7); Nucleated Red Blood Cells % 0 %; Platelet Count 442 10^3/cmm (130-400); Red Blood Count 4.25 10^6/uL (4.1-5.3); Red Cell Distribution Width 14.7 % (12.1-15.1); White Blood Count 13.9 10^3/uL (4.0-10.0)
[2022-03-31 15:40] LABS: Erythrocyte Sedimentation Rate 19 mm/hr (0-15)
[2022-03-31 15:57] LABS: Alanine Aminotransferase 15 U/L (0-33); Albumin Level 4.3 g/dL (3.5-5.2); Alkaline Phosphatase 96 IU/L (35-105); Anion Gap 16.9 (5-19); Aspartate Amino Transferase 31 U/L (0-32); Blood Urea Nitrogen 9 mg/dL (6-20); C Reactive Protein 9.6 mg/L (0.0-4.9); Calcium 8.9 mg/dL (8.5-10.5); Carbon Dioxide 25 mmol/L (22-29); Chloride 102 mmol/L (98-107); Globulin 2.7 g/dL (1.3-4.6); Glomerular Filtration Rate 165.1 mL/min (90-130); Glucose 126 mg/dL (65-115); Osmolality Calculated 290 mOsm/kg (285-295); Potassium 3.9 mmol/L (3.5-5.1); Sodium 140 mmol/L (136-145); Total Bilirubin 0.6 mg/dL (0.15-1.2)
== END 2022-03-31 14:46 | disposition home or self-care (01) ==
PROVIDERS: PCP Internal Medicine; Visit Provider Thoracic Surgery (Cardiothoracic Vascular Surgery)
DX: L98.491 Non-pressure chronic ulcer of skin of other sites limited to breakdown of skin (principal)
CPT/HCPCS: 80053; 85025; 85651; 86140

== ENCOUNTER → 2022-04-06 10:07 | Outpatient (BNVA) | payer MEDICAID, SELFPAY | PROVIDERS: PCP Internal Medicine; Visit Provider Thoracic Surgery (Cardiothoracic Vascular Surgery) | DX: I96 Gangrene, not elsewhere classified (principal); E11.621 Type 2 diabetes mellitus with foot ulcer; L89.892 Pressure ulcer of other site, stage 2 | CPT/HCPCS: 11042 ==

== ENCOUNTER → 2022-04-13 10:03 | Outpatient (BNVA) | payer MEDICAID, SELFPAY | PROVIDERS: PCP Internal Medicine; Visit Provider Nurse Practitioner Family | DX: I96 Gangrene, not elsewhere classified (principal); E11.621 Type 2 diabetes mellitus with foot ulcer; L89.892 Pressure ulcer of other site, stage 2 | CPT/HCPCS: 11042 ==

== ENCOUNTER 2022-04-17 14:48 | Outpatient (CLI) | payer MEDICAID, SELFPAY ==
[2022-04-17 15:12] LABS: Basophils # 0.1 10^3/uL (0.0-0.1); Eosinophils # 0.2 10^3/uL (0.0-0.8); Hematocrit 39.2 % (37.0-47.0); Hemoglobin 12.7 g/dL (11.5-15.3); Lymphocytes # 2.4 10^3/uL (0.8-4.8); Lymphocytes % 20.4 %; Mean Corpuscular HGB Conc 32.4 g/dL (30.0-36.0); Mean Corpuscular Volume 83.2 fl (81-99); Mean Platelet Volume 9.6 fL (7.4-10.4); Monocytes # 1.1 10^3/uL (0.2-0.9); Monocytes % 9.2 %; Neutrophils % 66.9 %; Nucleated Red Blood Cells % 0 %; Platelet Count 326 10^3/cmm (130-400); Red Blood Count 4.71 10^6/uL (4.1-5.3); Red Cell Distribution Width 15.9 % (12.1-15.1); White Blood Count 11.7 10^3/uL (4.0-10.0)
[2022-04-17 15:32] LABS: Alanine Aminotransferase 7 U/L (0-33); Albumin Level 4.7 g/dL (3.5-5.2); Alkaline Phosphatase 76 IU/L (35-105); Anion Gap 20.2 (5-19); Aspartate Amino Transferase 18 U/L (0-32); Blood Urea Nitrogen 14 mg/dL (6-20); Calcium 8.8 mg/dL (8.5-10.5); Carbon Dioxide 20 mmol/L (22-29); Chloride 102 mmol/L (98-107); Globulin 2.7 g/dL (1.3-4.6); Glomerular Filtration Rate 86.6 mL/min (90-130); Glucose 181 mg/dL (65-115); Osmolality Calculated 293 mOsm/kg (285-295); Potassium 3.2 mmol/L (3.5-5.1); Sodium 139 mmol/L (136-145); Total Bilirubin 0.4 mg/dL (0.15-1.2); Total Protein 7.4 g/dL (6.6-8.7)
[2022-04-24 13:36] LABS: Erythrocyte Sedimentation Rate 9 mm/hr (0-15)
== END 2022-04-17 14:49 | disposition home or self-care (01) ==
LOC: LAB 14:50
PROVIDERS: PCP Internal Medicine; Visit Provider Nurse Practitioner Family
DX: E11.621 Type 2 diabetes mellitus with foot ulcer (principal); L97.509 Non-pressure chronic ulcer of other part of unspecified foot with unspecified severity
CPT/HCPCS: 80053; 85025; 85651

== ENCOUNTER → 2022-04-20 10:51 | Outpatient (BNVA) | payer MEDICAID, SELFPAY | PROVIDERS: PCP Internal Medicine; Visit Provider Thoracic Surgery (Cardiothoracic Vascular Surgery) | DX: I96 Gangrene, not elsewhere classified (principal); E11.621 Type 2 diabetes mellitus with foot ulcer; L89.892 Pressure ulcer of other site, stage 2 | CPT/HCPCS: 97597 ==

== ENCOUNTER → 2022-04-29 14:01 | Outpatient (BNVA) | payer MEDICAID, SELFPAY | PROVIDERS: PCP Internal Medicine; Visit Provider Thoracic Surgery (Cardiothoracic Vascular Surgery) | DX: I96 Gangrene, not elsewhere classified (principal); E11.621 Type 2 diabetes mellitus with foot ulcer; L89.892 Pressure ulcer of other site, stage 2 | CPT/HCPCS: 11044 ==

== ENCOUNTER 2022-05-05 15:58 | Outpatient (CLI) | payer MEDICAID, SELFPAY ==
--- NOTE | 2022-05-05 16:00 | CT_ITS ---
WS: [id number] CT RIGHT FOOT WITH CONTRAST. HISTORY: E11.621 - Type 2 diabetes mellitus with foot ulcer Technique: All CT scans at [facility] use at least one of these dose optimization techniques: automated exposure control; mA and/or kV adjustment per patient size (includes targeted exams where dose is matched to clinical indication); or iterative reconstruction. DLP: 130.13 mGy-cm. COMPARISON: RIGHT foot radiograph 03/06/2022 Contrast: Omnipaque 350; 75 mL IV. Destruction of the cortex involving the distal fifth metatarsal. Cortex has been destroyed involving at least the distal 15 mm of the fifth metatarsal. Involvement of the entire metatarsal head. There i s additional periosteal reaction which may be from an remote osteomyelitis with healing. Numerous sma ll foci of air surrounding the fifth metatarsal head and extending into the fifth metatarsophalangeal joint. There is extensive soft tissue edema and air and fluid encasing the metatarsal head. This sof t tissue inflammation measures at least 3.0 x 2.5 cm. There is an area in the proximal metatarsal whi ch may be an early sign of osteomyelitis but very difficult to confirm as changes are only noted on t he reformats. The fourth metatarsal appears intact. No additional areas of osteomyelitis. Tarsal metatarsal articul ations are intact. CT/CT foot RT w con [id number] IMPRESSION: 1. Focal area of osteomyelitis involving the distal fifth metatarsal and metat arsal head extends over length of 15 mm. There is destruction of the cortex wit h a large amount of adjacent soft tissue edema from cellulitis. No discrete flu id collection. 2. Suspicious but indeterminate for additional osteomyelitis involving the pro ximal phalanx of the fifth toe. 3. Cellulitis and inflammatory changes extend into the fifth metatarsophalange al joint.
[2022-05-05] MEDS: iohexol 350 mg/mL 100 mL Btl IV (16:42)
== END 2022-05-05 15:59 | disposition home or self-care (01) ==
LOC: RAD 15:58
PROVIDERS: PCP Internal Medicine; Visit Provider Thoracic Surgery (Cardiothoracic Vascular Surgery)
DX: E11.621 Type 2 diabetes mellitus with foot ulcer (principal); L97.509 Non-pressure chronic ulcer of other part of unspecified foot with unspecified severity
CPT/HCPCS: 73701

== ENCOUNTER → 2022-05-06 14:10 | Outpatient (BNVA) | payer MEDICAID, SELFPAY | PROVIDERS: PCP Internal Medicine; Visit Provider Nurse Practitioner Family | DX: I96 Gangrene, not elsewhere classified (principal); E11.621 Type 2 diabetes mellitus with foot ulcer; L89.892 Pressure ulcer of other site, stage 2 | CPT/HCPCS: 11042 ==

== ENCOUNTER 2022-05-06 15:20 | Outpatient (CLI) | payer MEDICAID, SELFPAY ==
[2022-05-06 16:36] LABS: Basophils # 0.1 10^3/uL (0.0-0.1); Basophils % 0.6 %; Eosinophils % 0.5 %; Hematocrit 42.6 % (37.0-47.0); Hemoglobin 13.6 g/dL (11.5-15.3); Lymphocytes # 1.3 10^3/uL (0.8-4.8); Lymphocytes % 16.7 %; Mean Corpuscular HGB Conc 31.9 g/dL (30.0-36.0); Mean Corpuscular Hemoglobin 27.1 pg (28.0-34.0); Mean Platelet Volume 9.7 fL (7.4-10.4); Monocytes # 0.5 10^3/uL (0.2-0.9); Monocytes % 6.7 %; Neutrophils # 6.04 10^3/uL (1.8-7.7); Neutrophils % 75.3 %; Nucleated Red Blood Cells % 0 %; Platelet Count 287 10^3/cmm (130-400); Red Blood Count 5.01 10^6/uL (4.1-5.3); Red Cell Distribution Width 16.2 % (12.1-15.1)
[2022-05-06 16:39] LABS: Erythrocyte Sedimentation Rate 7 mm/hr (0-15)
[2022-05-06 17:27] LABS: Alanine Aminotransferase 12 U/L (0-33); Albumin Level 5.1 g/dL (3.5-5.2); Alkaline Phosphatase 80 IU/L (35-105); Aspartate Amino Transferase 29 U/L (0-32); Blood Urea Nitrogen 20 mg/dL (6-20); C Reactive Protein 5.7 mg/L (0.0-4.9); Calcium 9.3 mg/dL (8.5-10.5); Carbon Dioxide 22 mmol/L (22-29); Chloride 97 mmol/L (98-107); Globulin 2.5 g/dL (1.3-4.6); Glomerular Filtration Rate 86.6 mL/min (90-130); Glucose 154 mg/dL (65-115); Osmolality Calculated 296 mOsm/kg (285-295); Prealbumin 31.2 mg/dL (20-40); Sodium 140 mmol/L (136-145); Total Bilirubin 0.5 mg/dL (0.15-1.2); Total Protein 7.6 g/dL (6.6-8.7)
[2022-05-06 17:38] LABS: Estmated Average Glucose 146; Hemoglobin A1C 6.7 % (4.0-6.0)
[2022-05-06 17:43] LABS: Anion Gap 23.9 (5-19)
[2022-05-07 09:39] LABS: Potassium 2.9 mmol/L (3.5-5.1)
== END 2022-05-06 15:21 | disposition home or self-care (01) ==
LOC: LAB 15:22
PROVIDERS: PCP Internal Medicine; Visit Provider Nurse Practitioner Family
DX: E11.621 Type 2 diabetes mellitus with foot ulcer (principal); L97.509 Non-pressure chronic ulcer of other part of unspecified foot with unspecified severity
CPT/HCPCS: 80053; 83036; 84134; 85025; 85651; 86140

== ENCOUNTER 2022-05-07 14:03 | Outpatient (CLI) | payer MEDICAID, SELFPAY ==
--- NOTE | 2022-05-07 14:20 | XRR_ITS ---
PROCEDURE INFORMATION: Exam: XR Chest Exam date and time: 05/07/2022 2:43 PM Age: 56 years old Clinical indication: Screening exam; Other screening; Patient HX: Evaluation for a hyperbaric chamber; Additional info: Z13.83 - encounter for screening for respiratory disorder. . . TECHNIQUE: Imaging protocol: Radiologic exam of the chest. Views: 2 views. COMPARISON: CR XR chest 1V portable [id number] 11/10/2019 11:54 AM FINDINGS: Lungs: Unremarkable. No consolidation. Pleural spaces: Unremarkable. No pleural effusion. No pneumothorax. Heart/Mediastinum: Unremarkable. No cardiomegaly. Bones/joints: Unremarkable. XR/XR chest 2V* [id number] IMPRESSION: No acute findings.
--- NOTE | 2022-05-07 14:34 | ECG_ITS ---
[facility] Test Date: 2022-05-07 Pat Name: Candi Fuller Department: Room: Gender: Female Joint Cutter: : 1965 Requested By: Katelyn Cam Order Number: [id number] Kari MD: Shiva Heart M.D. Measurements Intervals [place] Rate: 95 P: 30 AL: 193 QRS: -36 QRSD: 148 T: 120 QT: 403 QTc: 507 Interpretive Statements SINUS RHYTHM POSSIBLE LEFT ATRIAL ENLARGEMENT [-0.1mV P-WAVE IN V1/V2] LEFT AXIS DEVIATION [QRS AXIS < -30] LEFT BUNDLE BRANCH BLOCK [120+ ms QRS DURATION, 80+ ms Q/S IN V1/V2, 85+ ms R IN I/aVL/V5/V6] INTERPRETATION BASED ON A DEFAULT AGE OF 40 YEARS Compared to ECG 11/10/2019 13:53:48 No significant changes Electronically Signed On 05-07-2022 22:53:06 CDT by Shiva Heart M.D. [id number]
== END 2022-05-07 14:04 | disposition home or self-care (01) ==
LOC: RAD 14:05
PROVIDERS: PCP Internal Medicine; Visit Provider Nurse Practitioner Family
DX: Z13.6 Encounter for screening for cardiovascular disorders (principal); Z13.83 Encounter for screening for respiratory disorder NEC; I44.7 Left bundle-branch block, unspecified
CPT/HCPCS: 71046; 93005

== ENCOUNTER → 2022-05-13 08:14 | Outpatient (BNVA) | payer MEDICAID, SELFPAY | PROVIDERS: PCP Internal Medicine; Visit Provider Thoracic Surgery (Cardiothoracic Vascular Surgery) | DX: I96 Gangrene, not elsewhere classified (principal); E11.621 Type 2 diabetes mellitus with foot ulcer; L89.892 Pressure ulcer of other site, stage 2 | CPT/HCPCS: 11042 ==

== ENCOUNTER → 2022-05-13 10:16 | Outpatient (BNVA) | payer MEDICAID, SELFPAY | PROVIDERS: PCP Internal Medicine; Visit Provider Thoracic Surgery (Cardiothoracic Vascular Surgery) | DX: I96 Gangrene, not elsewhere classified (principal); E11.621 Type 2 diabetes mellitus with foot ulcer; L89.892 Pressure ulcer of other site, stage 2 | CPT/HCPCS: 11042 ==

== ENCOUNTER 2022-05-18 14:30 | Outpatient (CLI) | payer MEDICAID, SELFPAY ==
[2022-05-18 15:40] LABS: Basophils # 0.1 10^3/uL (0.0-0.1); Basophils % 0.9 %; Eosinophils # 0.4 10^3/uL (0.0-0.8); Eosinophils % 2.3 %; Hematocrit 36.5 % (37.0-47.0); Lymphocytes # 2.7 10^3/uL (0.8-4.8); Lymphocytes % 17.6 %; Mean Corpuscular HGB Conc 32.9 g/dL (30.0-36.0); Mean Corpuscular Hemoglobin 27.5 pg (28.0-34.0); Mean Corpuscular Volume 83.7 fl (81-99); Mean Platelet Volume 10.7 fL (7.4-10.4); Monocytes # 1.4 10^3/uL (0.2-0.9); Neutrophils # 10.04 10^3/uL (1.8-7.7); Neutrophils % 66.4 %; Nucleated Red Blood Cells % 0 %; Platelet Count 541 10^3/cmm (130-400); Red Blood Count 4.36 10^6/uL (4.1-5.3); Red Cell Distribution Width 15.9 % (12.1-15.1); White Blood Count 15.1 10^3/uL (4.0-10.0)
[2022-05-18 16:09] LABS: Alanine Aminotransferase 8 U/L (0-33); Albumin Level 4.6 g/dL (3.5-5.2); Alkaline Phosphatase 96 IU/L (35-105); Anion Gap 20.2 (5-19); Aspartate Amino Transferase 15 U/L (0-32); Blood Urea Nitrogen 17 mg/dL (6-20); Calcium 9.1 mg/dL (8.5-10.5); Carbon Dioxide 18 mmol/L (22-29); Chloride 105 mmol/L (98-107); Chol HDL Ratio 4.02 mg/dL (0.0-4.40); Cholesterol 165 mg/dL (0-200); Globulin 2.7 g/dL (1.3-4.6); Glomerular Filtration Rate 64.8 mL/min (90-130); Glucose 137 mg/dL (65-115); HDL Cholesterol 41 mg/dL (60-100); Osmolality Calculated 294 mOsm/kg (285-295); Potassium 3.2 mmol/L (3.5-5.1); Sodium 140 mmol/L (136-145); Total Bilirubin 0.4 mg/dL (0.15-1.2); Total Protein 7.3 g/dL (6.6-8.7); Triglycerides 463 mg/dL (0-150)
[2022-05-18 17:17] LABS: LDL Cholesterol Direct 70 mg/dL (0-100)
[2022-05-18 17:30] LABS: Estmated Average Glucose 146; Hemoglobin A1C 6.7 % (4.0-6.0)
== END 2022-05-18 14:31 | disposition home or self-care (01) ==
PROVIDERS: PCP Internal Medicine; Visit Provider Nurse Practitioner Family
DX: E11.9 Type 2 diabetes mellitus without complications (principal); E78.5 Hyperlipidemia, unspecified
CPT/HCPCS: 80053; 80061; 83036; 83721; 85025

== ENCOUNTER → 2022-05-20 08:50 | Outpatient (BNVA) | payer MEDICAID, SELFPAY | PROVIDERS: PCP Internal Medicine; Visit Provider Nurse Practitioner Family | DX: I96 Gangrene, not elsewhere classified (principal); E11.621 Type 2 diabetes mellitus with foot ulcer; L89.892 Pressure ulcer of other site, stage 2 | CPT/HCPCS: 11042 ==

== ENCOUNTER → 2022-05-26 08:13 | Outpatient (BNVA) | payer MEDICAID, SELFPAY | PROVIDERS: PCP Internal Medicine; Visit Provider Nurse Practitioner Family | DX: I96 Gangrene, not elsewhere classified (principal); E11.621 Type 2 diabetes mellitus with foot ulcer; L89.892 Pressure ulcer of other site, stage 2 | CPT/HCPCS: 11042 ==

== ENCOUNTER → 2022-05-26 10:15 | Outpatient (BNVA) | payer MEDICAID, SELFPAY | PROVIDERS: PCP Internal Medicine; Visit Provider Nurse Practitioner Family | DX: I96 Gangrene, not elsewhere classified (principal); E11.621 Type 2 diabetes mellitus with foot ulcer; L89.892 Pressure ulcer of other site, stage 2 | CPT/HCPCS: 11042 ==

== ENCOUNTER → 2022-06-03 08:08 | Outpatient (BNVA) | payer MEDICAID, SELFPAY | PROVIDERS: PCP Internal Medicine; Visit Provider Thoracic Surgery (Cardiothoracic Vascular Surgery) | DX: I96 Gangrene, not elsewhere classified (principal); E11.621 Type 2 diabetes mellitus with foot ulcer; L89.892 Pressure ulcer of other site, stage 2 | CPT/HCPCS: 11042 ==

== ENCOUNTER → 2022-06-03 15:00 | Outpatient (BNVA) | payer MEDICAID, SELFPAY | PROVIDERS: PCP Internal Medicine; Visit Provider Podiatrist Foot & Ankle Surgery | DX: M19.071 Primary osteoarthritis, right ankle and foot (principal); M79.671 Pain in right foot | CPT/HCPCS: 73600; 73620 ==

== ENCOUNTER 2022-06-03 16:15 | Outpatient (CLI) | payer MEDICAID, SELFPAY | END 2022-06-03 16:16 | disposition home or self-care (01) | LOC: SPT 16:16 | PROVIDERS: PCP Internal Medicine; Visit Provider Podiatrist Foot & Ankle Surgery | DX: Z46.89 Encounter for fitting and adjustment of other specified devices (principal); M79.671 Pain in right foot | CPT/HCPCS: 97760; L4361 ==

== ENCOUNTER → 2022-06-10 07:52 | Outpatient (BNVA) | payer MEDICAID, SELFPAY | PROVIDERS: PCP Internal Medicine; Visit Provider Thoracic Surgery (Cardiothoracic Vascular Surgery) | DX: I96 Gangrene, not elsewhere classified (principal); E11.621 Type 2 diabetes mellitus with foot ulcer; L89.892 Pressure ulcer of other site, stage 2 | CPT/HCPCS: 11042 ==

== ENCOUNTER → 2022-06-10 10:19 | Outpatient (BNVA) | payer MEDICAID, SELFPAY | PROVIDERS: PCP Internal Medicine; Visit Provider Thoracic Surgery (Cardiothoracic Vascular Surgery) | DX: I96 Gangrene, not elsewhere classified (principal); E11.621 Type 2 diabetes mellitus with foot ulcer; L89.892 Pressure ulcer of other site, stage 2 | CPT/HCPCS: 97597 ==

== ENCOUNTER → 2022-06-24 08:26 | Outpatient (BNVA) | payer MEDICAID, SELFPAY | PROVIDERS: PCP Internal Medicine; Visit Provider Nurse Practitioner Family | DX: I96 Gangrene, not elsewhere classified (principal); E11.621 Type 2 diabetes mellitus with foot ulcer; L89.892 Pressure ulcer of other site, stage 2 | CPT/HCPCS: 97597 ==

== ENCOUNTER → 2022-06-24 10:13 | Outpatient (BNVA) | payer MEDICAID, SELFPAY | PROVIDERS: PCP Internal Medicine; Visit Provider Thoracic Surgery (Cardiothoracic Vascular Surgery) | DX: I96 Gangrene, not elsewhere classified (principal); E11.621 Type 2 diabetes mellitus with foot ulcer; L89.892 Pressure ulcer of other site, stage 2 | CPT/HCPCS: 97597 ==

== ENCOUNTER → 2022-06-24 14:23 | Outpatient (BNVA) | payer MEDICAID, SELFPAY | PROVIDERS: PCP Internal Medicine; Visit Provider Podiatrist Foot & Ankle Surgery | DX: M14.671 Charcot's joint, right ankle and foot (principal); E11.621 Type 2 diabetes mellitus with foot ulcer; L97.512 Non-pressure chronic ulcer of other part of right foot with fat layer exposed; Z79.84 Long term (current) use of oral hypoglycemic drugs | CPT/HCPCS: 73610 ==

== ENCOUNTER → 2022-07-01 10:07 | Outpatient (BNVA) | payer MEDICAID, SELFPAY | PROVIDERS: PCP Internal Medicine; Visit Provider Thoracic Surgery (Cardiothoracic Vascular Surgery) | DX: I96 Gangrene, not elsewhere classified (principal); E11.621 Type 2 diabetes mellitus with foot ulcer; L89.892 Pressure ulcer of other site, stage 2 | CPT/HCPCS: 97597 ==

== ENCOUNTER → 2022-07-08 10:26 | Outpatient (BNVA) | payer MEDICAID, SELFPAY | PROVIDERS: PCP Internal Medicine; Visit Provider Nurse Practitioner Family | DX: I96 Gangrene, not elsewhere classified (principal); E11.621 Type 2 diabetes mellitus with foot ulcer; L89.892 Pressure ulcer of other site, stage 2 | CPT/HCPCS: 11042 ==

== ENCOUNTER → 2022-07-09 08:08 | Outpatient (BNVA) | payer MEDICAID, SELFPAY | PROVIDERS: PCP Internal Medicine; Visit Provider Nurse Practitioner Family | DX: E11.621 Type 2 diabetes mellitus with foot ulcer (principal); L97.526 Non-pressure chronic ulcer of other part of left foot with bone involvement without evidence of necrosis; M86.172 Other acute osteomyelitis, left ankle and foot | CPT/HCPCS: G0277 ==

== ENCOUNTER → 2022-07-21 09:49 | Outpatient (BNVA) | payer BC, MEDICAID, SELFPAY | PROVIDERS: PCP Internal Medicine; Visit Provider Nurse Practitioner Family | DX: E11.621 Type 2 diabetes mellitus with foot ulcer (principal); L97.516 Non-pressure chronic ulcer of other part of right foot with bone involvement without evidence of necrosis; M19.071 Primary osteoarthritis, right ankle and foot | CPT/HCPCS: 11042; G0277 ==

== ENCOUNTER → 2022-07-22 09:30 | Outpatient (BNVA) | payer BC, MEDICAID, SELFPAY | PROVIDERS: PCP Internal Medicine; Visit Provider Thoracic Surgery (Cardiothoracic Vascular Surgery) | DX: E11.621 Type 2 diabetes mellitus with foot ulcer (principal); L97.516 Non-pressure chronic ulcer of other part of right foot with bone involvement without evidence of necrosis; M19.071 Primary osteoarthritis, right ankle and foot | CPT/HCPCS: G0277 ==

== ENCOUNTER → 2022-07-23 08:25 | Outpatient (BNVA) | payer BC, MEDICAID, SELFPAY | PROVIDERS: PCP Internal Medicine; Visit Provider Nurse Practitioner Family | DX: E11.621 Type 2 diabetes mellitus with foot ulcer (principal); L97.516 Non-pressure chronic ulcer of other part of right foot with bone involvement without evidence of necrosis; M19.071 Primary osteoarthritis, right ankle and foot | CPT/HCPCS: G0277 ==

== ENCOUNTER → 2022-07-24 08:39 | Outpatient (BNVA) | payer BC, MEDICAID, SELFPAY | PROVIDERS: PCP Internal Medicine; Visit Provider Surgery | DX: E11.621 Type 2 diabetes mellitus with foot ulcer (principal); L97.512 Non-pressure chronic ulcer of other part of right foot with fat layer exposed; M19.071 Primary osteoarthritis, right ankle and foot | CPT/HCPCS: G0277 ==

== ENCOUNTER → 2022-07-27 07:47 | Outpatient (BNVA) | payer BC, MEDICAID, SELFPAY | PROVIDERS: PCP Internal Medicine; Visit Provider Thoracic Surgery (Cardiothoracic Vascular Surgery) | DX: I96 Gangrene, not elsewhere classified (principal); E11.621 Type 2 diabetes mellitus with foot ulcer; L89.892 Pressure ulcer of other site, stage 2; L97.516 Non-pressure chronic ulcer of other part of right foot with bone involvement without evidence of necrosis; M19.072 Primary osteoarthritis, left ankle and foot | CPT/HCPCS: 97597; A6210; G0277 ==

== ENCOUNTER → 2022-07-28 08:13 | Outpatient (BNVA) | payer BC, MEDICAID, SELFPAY | PROVIDERS: PCP Internal Medicine; Visit Provider Nurse Practitioner Family | DX: E11.621 Type 2 diabetes mellitus with foot ulcer (principal); L97.516 Non-pressure chronic ulcer of other part of right foot with bone involvement without evidence of necrosis; M19.072 Primary osteoarthritis, left ankle and foot | CPT/HCPCS: 85651; G0277 ==

== ENCOUNTER → 2022-07-30 08:28 | Outpatient (BNVA) | payer BC, MEDICAID, SELFPAY | PROVIDERS: PCP Internal Medicine; Visit Provider Nurse Practitioner Family | DX: I96 Gangrene, not elsewhere classified (principal); E11.621 Type 2 diabetes mellitus with foot ulcer; L97.513 Non-pressure chronic ulcer of other part of right foot with necrosis of muscle | CPT/HCPCS: G0277 ==

== ENCOUNTER → 2022-07-31 08:19 | Outpatient (BNVA) | payer BC, MEDICAID, SELFPAY | PROVIDERS: PCP Internal Medicine; Visit Provider Nurse Practitioner Family | DX: E11.621 Type 2 diabetes mellitus with foot ulcer (principal); L97.512 Non-pressure chronic ulcer of other part of right foot with fat layer exposed | CPT/HCPCS: G0277 ==

== ENCOUNTER → 2022-08-04 08:24 | Outpatient (BNVA) | payer BC, MEDICAID, SELFPAY | PROVIDERS: PCP Internal Medicine; Visit Provider Nurse Practitioner Family | DX: E11.621 Type 2 diabetes mellitus with foot ulcer (principal); L97.516 Non-pressure chronic ulcer of other part of right foot with bone involvement without evidence of necrosis | CPT/HCPCS: 99213; G0277 ==

== ENCOUNTER → 2022-09-16 10:04 | Outpatient (BNVA) | payer BC, MEDICAID, SELFPAY | PROVIDERS: PCP Internal Medicine; Visit Provider Nurse Practitioner Family | DX: E11.621 Type 2 diabetes mellitus with foot ulcer (principal); L89.892 Pressure ulcer of other site, stage 2; I96 Gangrene, not elsewhere classified | CPT/HCPCS: 87070; 87077; 87186 ==

== ENCOUNTER 2022-09-23 10:54 | Outpatient (CLI) | payer BC, MEDICAID, SELFPAY ==
--- NOTE | 2022-09-23 11:19 | MR_ITS ---
WS: [id number] MRI RIGHT ANKLE with and without CONTRAST. COMPARISON: Radiograph 06/24/2022 Multiplanar, multisequence imaging is performed with and without contrast. MultiHance 10 mL IV. No ulceration is noted involving the hindfoot or the calcaneus as indicated. There is no soft tissue track or edema within the calcaneus. No fluid collection. The Achilles tendon as visualized is normal . No retrocalcaneal bursal distention. The aponeurosis is intact. No significant calcaneal spurring. No marrow edema or enhancement. No evidence for osteomyelitis. There is no fluid collection or absces s. Patient has a known prior surgical resection of the distal fifth metatarsal. This area is not incl uded in its entirety. MR/MR ankle RT wo/w con [id number] IMPRESSION: 1. No calcaneal tract, abscess or osteomyelitis. 2. No marrow edema or fracture.
[2022-09-23] MEDS: gadobenate dimeglumine 20 mL vial IV (11:49)
== END 2022-09-23 10:55 | disposition home or self-care (01) ==
LOC: RAD 10:55
PROVIDERS: PCP Internal Medicine; Visit Provider Podiatrist Foot & Ankle Surgery
DX: E11.621 Type 2 diabetes mellitus with foot ulcer (principal); L89.892 Pressure ulcer of other site, stage 2; E11.40 Type 2 diabetes mellitus with diabetic neuropathy, unspecified; Z79.84 Long term (current) use of oral hypoglycemic drugs; M14.679 Charcot's joint, unspecified ankle and foot
CPT/HCPCS: 73723; 97597; A6210; A9577; G0277

== ENCOUNTER → 2022-09-29 09:20 | Outpatient (BNVA) | payer BC, MEDICAID, SELFPAY | PROVIDERS: PCP Internal Medicine; Visit Provider Nurse Practitioner Family | DX: Z01.89 Encounter for other specified special examinations (principal) | CPT/HCPCS: 87070; 87176; 87205 ==

== ENCOUNTER 2022-10-27 09:51 | Outpatient (CLI) | payer BC, MEDICAID, SELFPAY ==
--- NOTE | 2022-10-27 10:21 | XRR_ITS ---
PROCEDURE INFORMATION: Exam: XR Right Foot Exam date and time: 10/27/2022 10:32 AM Age: 57 years old Clinical indication: Condition or disease; Patient HX: RT distal 5th metacarpal area pain, non healing ulcer; Additional info: E11.621 - type 2 diabetes mellitus with foot ulcer TECHNIQUE: Imaging protocol: Radiologic exam of the Right foot. Views: 3 or more views. COMPARISON: CR XR foot RT 2V [id number] 06/03/2022 3:04 PM FINDINGS: Bones/joints: Bony erosions are present in the distal 5th metatarsal. This finding is new since prior examination and corresponds to acute osteomyelitis.. Otherwise negative for acute bony abnormality Soft tissues: Diffuse soft tissue edema is seen in the 5th digit XR/XR foot RT min 3V* [id number] IMPRESSION: 1. Soft tissue edema 5th digit 2. Osteomyelitis distal 5th metatarsal 3. Otherwise negative examination
[2022-10-27 10:35] LABS: Basophils # 0.1 10^3/uL (0.0-0.1); Basophils % 0.7 %; Eosinophils # 0.3 10^3/uL (0.0-0.8); Eosinophils % 3.3 %; Hematocrit 31.9 % (37.0-47.0); Hemoglobin 9.9 g/dL (11.5-15.3); Lymphocytes # 2.2 10^3/uL (0.8-4.8); Lymphocytes % 22.3 %; Mean Corpuscular Hemoglobin 27.2 pg (28.0-34.0); Mean Corpuscular Volume 87.6 fl (81-99); Mean Platelet Volume 9.8 fL (7.4-10.4); Monocytes # 0.8 10^3/uL (0.2-0.9); Monocytes % 7.8 %; Neutrophils # 6.54 10^3/uL (1.8-7.7); Neutrophils % 65.6 %; Nucleated Red Blood Cells % 0 %; Platelet Count 463 10^3/cmm (130-400); Red Blood Count 3.64 10^6/uL (4.1-5.3); Red Cell Distribution Width 13.2 % (12.1-15.1)
[2022-10-27 10:54] LABS: Anion Gap 17.1 (5-19); Blood Urea Nitrogen 13 mg/dL (6-20); Calcium 9.2 mg/dL (8.5-10.5); Carbon Dioxide 27 mmol/L (22-29); Chloride 101 mmol/L (98-107); Glucose 137 mg/dL (65-115); Osmolality Calculated 294 mOsm/kg (285-295); Potassium 4.1 mmol/L (3.5-5.1); Sodium 141 mmol/L (136-145)
== END 2022-10-27 09:52 | disposition home or self-care (01) ==
LOC: LAB 09:56
PROVIDERS: PCP Internal Medicine; Visit Provider Thoracic Surgery (Cardiothoracic Vascular Surgery)
DX: E11.621 Type 2 diabetes mellitus with foot ulcer (principal); L97.509 Non-pressure chronic ulcer of other part of unspecified foot with unspecified severity; R60.0 Localized edema; M86.8X7 Other osteomyelitis, ankle and foot
CPT/HCPCS: 36415; 73630; 80048; 85025; 87070; 87176; 87205

== ENCOUNTER 2022-11-20 08:31 | Outpatient (CLI) | payer BC, MEDICAID, SELFPAY ==
--- NOTE | 2022-11-20 08:41 | CT_ITS ---
WS: [id number] CONTRAST-ENHANCED CT RIGHT FOOT TECHNIQUE: Contrast-enhanced CT RIGHT foot with coronal and sagittal reformatted images. CLINICAL INFORMATION: E11.621 - Type 2 diabetes mellitus with foot ulcer COMPARISON: May 05, 2022 DLP: 192.[address] scans at [facility] use at least one of these dose optimization techniques: automated e xposure control; mA and/or kV adjustment per patient size (includes targeted exams where dose is matc hed to clinical indication); or iterative reconstruction. FINDINGS: Soft tissue edema plantar RIGHT foot. Ulceration along the plantar surface underlying the 5th MTP wit h associated soft tissue thickening and edema. Associated induration. No drainable fluid collections. Associated destructive changes with erosion of the 5th metatarsal head compatible with osteomyelitis . This involves the MTP joint. Periosteal changes extend into the distal 5th metatarsal shaft. Suspec joo involvement of the adjacent base 5th proximal phalanx 4th metatarsal appears normal. Hammertoe deformities. Hallux valgus. Degenerative arthritis 1st MTP. Vascular calcification. Normal ankle mortise. Talar dome is normal. Achilles enthesophyte. CT/CT foot RT w con [id number] IMPRESSION: 1. Plantar ulceration underlying the 5th metatarsal head with soft tissue thic kening and induration compatible with cellulitis. No drainable fluid collection s. 2. Destructive changes involving the 5th metatarsal head compatible with osteo myelitis. Erosive changes appear progressed compared to May 05, 2022. This ext ends to the 5th MTP joint and slightly involves the base of the 5th proximal ph alanx. 3. 4th metatarsal appears normal. 4. Hallux valgus.
[2022-11-20] MEDS: iohexol 350 mg/mL 500 mL Btl (per mL) IV (08:57)
== END 2022-11-20 08:32 | disposition home or self-care (01) ==
LOC: RAD 08:32
PROVIDERS: PCP Internal Medicine; Referring Provider Podiatrist Foot & Ankle Surgery; Visit Provider Thoracic Surgery (Cardiothoracic Vascular Surgery)
DX: E11.621 Type 2 diabetes mellitus with foot ulcer (principal); L97.509 Non-pressure chronic ulcer of other part of unspecified foot with unspecified severity
CPT/HCPCS: 73701; Q9967

== ENCOUNTER 2022-12-10 07:56 | Day surgery (SDC) | payer BC, MEDICAID, SELFPAY ==
[2022-12-09 12:03] VITALS: BMI 26.4
--- NOTE | 2022-12-10 08:07 | ECG_ITS ---
[facility] Test Date: 2022-12-10 Pat Name: Candi Fuller Department: Room: Gender: Female Clinical Radiologist: : 1965 Requested By: Farhat Choi Order Number: [id number] Kari MD: Shiva Heart M.D. Measurements Intervals [place] Rate: 81 P: 52 SC: 170 QRS: -50 QRSD: 137 T: 173 QT: 438 QTc: 510 Interpretive Statements SINUS RHYTHM POSSIBLE LEFT ATRIAL ENLARGEMENT [-0.1mV P-WAVE IN V1/V2] LEFT AXIS DEVIATION [QRS AXIS < -30] LEFT BUNDLE BRANCH BLOCK [120+ ms QRS DURATION, 80+ ms Q/S IN V1/V2, 85+ ms R IN I/aVL/V5/V6] Compared to ECG 05/07/2022 14:18:02 No significant changes Electronically Signed On 12-10-2022 20:09:46 DEVELOPMENT SCIENTIST by Shiva Heart M.D. [id number]
[2022-12-10 08:33] LABS: Glucose Point of Care 140 mg/dL (70-110)
[2022-12-10] MEDS: acetaminophen 1,000 MG/100 ML PIGGYBACK 400 MG IV (08:35)
[2022-12-10 08:41] VITALS: BP 148/79; PULSE 88; RESP 18; TEMP 36.6; O2SAT 99
[2022-12-10] MEDS: sodium chloride 0.9% 1,000 ML 30 ML IV (08:44)
[2022-12-10] MEDS: gabapentin 300 mg Capsule PO (08:50)
[2022-12-10 09:19] LABS: Anion Gap 19.2 (5-19); Blood Urea Nitrogen 15 mg/dL (6-20); Calcium 9.5 mg/dL (8.5-10.5); Carbon Dioxide 23 mmol/L (22-29); Chloride 101 mmol/L (98-107); Glucose 145 mg/dL (65-115); Osmolality Calculated 291 mOsm/kg (285-295); Potassium 4.2 mmol/L (3.5-5.1); Sodium 139 mmol/L (136-145)
--- NOTE | 2022-12-10 11:15 | W.PM.OPSUD ---
Surgery/Procedure H&P Update DATE OF PROCEDURE: December 10, 2022 DATE H&P PERFORMED: 12/02/22 CHANGES TO PREVIOUS DOCUMENTATION: No changes PREOP DIAGNOSIS: Right foot 5th metatarsal osteomyelitis PRIMARY INDICATION FOR PROCEDURE: Osteomyelitis right foot 5ht metatarsal PLANNED PROCEDURE: Operation Date: 12/10/22 09:50 Proposed Procedures p Incision bone cortex right 5th metatarsal CPT 30248,M86.9(Right) - Hugo Purdy DPM
[2022-12-10] MEDS: ceFAZolin 2,000 MG in sodium chloride 0.9% (plus) 50 ML 100 MG IV (11:33)
[2022-12-10 12:20] VITALS: BP 110/65; PULSE 91; RESP 17; TEMP 36.1; O2SAT 98
[2022-12-10 12:29] VITALS: BP 111/73; PULSE 96; RESP 18; TEMP 36.2; O2SAT 99
[2022-12-10 13:11] VITALS: BP 137/100; PULSE 96; RESP 18; TEMP 36.3; O2SAT 100
--- NOTE | 2022-12-10 13:18 | ANES.PREANE2 ---
Pre-Anesthetic Assessment Height/Weight: Height 1.52 m Weight 61.235 kg Temp Pulse Resp BP Pulse Ox O2 Del Method 97.3 F L 96 18 137/100 100 12/10/22 13:11 12/10/22 13:11 12/10/22 13:11 12/10/22 13:11 12/10/22 13:11 12/10/22 13:11 Preop Diagnosis: Right foot 5th metatarsal osteomyelitis Operation Date: 12/10/22 09:50 Proposed Procedures p Incision bone cortex right 5th metatarsal CPT 70240,M86.9(Right) - Hugo Purdy DPM Familial anesthetic complications: none Was Beta Agnes taken within 24 hours: Yes Was Clonidine taken within 24 hours: N/A Last intake: Intake Last Liquid Date 12/09/22 Last Liquid Time 22:00 Last Solid Date 12/09/22 Last Solid Time 20:00 Social No alcohol and No tobacco Exam alert, oriented x 3 and regular rate & rhythm Airway Submandibular: within normal limits Cervical ROM: within normal limits Mallampati: Class II Dentition: chipped and partials Pulmonary Chronic Obstructive Pulmonary Disease CV/HEM Congestive Heart Failure, Deep Vein Thrombosis (PE) and Hypertension anticoagulation Metabolic Diabetes Mellitus and Hyperlipidemia Neuropsych Neuropathy Anesthetic Plan ASA status: 3 Anesthesia: MAC Medications/Allergies Home Medications Medication Instructions Recorded Confirmed Last Taken Type amlodipine 10 mg tablet 10 mg PO DAILY 30 days #30 tabs 12/13/19 12/09/22 12/10/22 Rx apixaban 2.5 mg tablet (Eliquis) 2.5 mg PO BID 12/13/19 12/09/22 12/09/22 History atorvastatin 80 mg tablet (Lipitor) 80 mg PO DAILY 30 days #30 tabs 12/13/19 12/09/22 12/09/22 Rx calcium carbonate 600 mg-vitamin 1 tab PO DAILY 12/13/19 12/09/22 12/09/22 History D3 20 mcg (800 unit) tablet (Caltrate with Vitamin D3) furosemide 40 mg tablet 40 mg PO BID 12/13/19 12/09/22 12/09/22 History loratadine 10 mg tablet 10 mg PO DAILY 12/13/19 12/09/22 12/09/22 History potassium chloride 20 mEq 20 meq PO BID 12/13/19 12/09/22 12/09/22 History tablet,extended release(part/cryst) (Klor-Con M) valsartan 320 mg tablet 320 mg PO DAILY 12/13/19 12/09/22 12/09/22 History metformin 500 mg tablet,extended 500 mg PO DAILY 01/09/21 12/09/22 12/09/22 History release 24hr metoprolol tartrate 100 mg tablet 100 mg PO BID #180 tabs 02/19/21 12/09/22 12/10/22 Rx permethrin 5 % topical cream 1 applic topical Q14D 2 doses #60 09/16/22 12/09/22 Unknown Rx grams albuterol sulfate 90 mcg/actuation 1 inh inhalation QID PRN Allergy 12/04/22 12/09/22 Unknown History aerosol inhaler Symptoms hydrocodone 5 mg-acetaminophen 325 1 tab PO Q6H PRN pain #28 tabs 12/10/22 Unknown Rx mg tablet Allergies Allergy/AdvReac Type Severity Reaction Status Date / Time No Known Allergies Allergy Verified 12/04/22 07:56 [facility], [facility] Anesthesia Medical History (Updated 12/04/22 @ 10:56 by Garcia Camacho MD) Anticoagulation adequate with anticoagulant therapy Benign essential HTN CHF (congestive heart failure) Chronic systolic CHF (congestive heart failure), NYHA class 2 Dilated cardiomyopathy History of anemia History of chronic hypertension History of CVA (cerebrovascular accident) History of diabetes mellitus History of pulmonary embolism Near syncope Pulmonary embolism and infarction Pt was told to have a problem with blood clot and was advised to take the OAC indefinitely TIA (transient ischemic attack) Family History Other Adopted Unknown family medical history Social History Smoking and tobacco status: never smoked Alcohol intake: never Data Anesthesia 12/10/22 08:22 BMP 12/10/22 08:22 Sodium 139 Potassium 4.2 Chloride 101 Carbon Dioxide 23 BUN 15 Creatinine 0.6 Glucose 145 H Calcium 9.5 Cardiac Studies: Echocardiogram Ultrasound 01/01/20
--- NOTE | 2022-12-10 18:12 | ANE.PACU2 ---
Inpatient post-anesthesia follow up: Airway intact: Yes Vital signs: Temperature 97.3 F Pulse Rate 96 Respiratory Rate 18 Blood Pressure 137/100 Pulse Oximetry 100 Oxygen Delivery Me thod Room Air Oxygen Flow Rate Fraction of Inspir ed Oxygen Hydration adequate: Yes Nausea and vomiting: No Pain level: 2 Mental status: Baseline
--- NOTE | 2022-12-10 21:20 | P.OP_ITS ---
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 Incision bone cortex right foot fifth metatarsal CPT 70886 Specimens removed/disposition: Distal fifth metatarsal right foot, bone cultures sent to [facility] for ID and sensitivity Pathology: Fifth metatarsal right foot sent to pathology Surgeon: Denny Muller.[email or web address] Estimated blood loss: Less than 20 cc Complications: None Findings: See above Procedure: Patient is a 57-year-old female that has a history of chronic ulceration right foot with underlying osteomyelitis. The patient has had the aforementioned chief complaint for some time. Conservative treatment measures have been attempted and the patient has opted for surgical intervention at this time. A lengthy discussion regarding the procedure, including risks and complications has been had with the patient and is noted in the recent clinic note. Written and verbal consent have been obtained. All patient questions have been answered to the patient?s satisfaction. No written or verbal guarantees have been given or implied. The patient has been NPO since midnight. The history has been reviewed and the history and physical is current. The signed consent was confirmed and placed in the patient chart. Patient imaging has been reviewed and is consistent with the diagnosis. Under mild sedation, the patient was brought into the operating room and left on the gurney in the supine position IV antibiotics were given by the anesthesia team as preoperative surgical prophylaxis. IV sedation was then performed by the anesthesiateam. A local field block using 0.5% Marcaine plain was then performed. A pneumatic tourniquet was then placed about the right ankle. The operative extremity was then prepped and draped in the usual fashion. The extremity was then elevated and exsanguinated before the tourniquet was inflated to 250 mmHg. After inflation, the following procedure was then performed. Attention was directed to the lateral aspect of the right foot where a 5 cm incision was made dorsal laterally over the fifth metatarsal. Dissection was carried down through subcutaneous and superficial fascia to the level of the periosteum which was incised to expose the cortical bone of the fifth metatarsal. Next, sagittal bone saw was used to make an osseous cut through the cortex of the fifth metatarsal mid diaphyseal region. The distal aspect of the fifth metatarsal was grasped with a pamela and using a 15 blade, the distal aspect of the fifth metatarsal was shelled out and passed from the operative field to be sent as specimen to pathology. A fragment of the hypertrophied discolored area of bone was snipped off with a rongeur and sent to micro for ID and sensitivity. Again, the distal aspect of fifth metatarsal was noted to be darkened and discolored with degenerative changes and hypertrophy to the plantar distal aspect of the fifth metatarsal. The remaining tissues appeared healthy and viable in nature. The site was irrigated with copious amounts of sterile saline. The tourniquet was let down and any bleeders were cauterized as necessary. After irrigation, attention was directed to closure. Deep tissue was closed with 3-0 Vicryl followed by subcuticular closure with 4-0 Vicryl and skin closure with 4-0 nylon in horizontal mattress and simple interrupted fashion. The incision was dressed with Xeroform, 4 x 4 gauze, Kerlix and Jacques bandage. The patient tolerated the procedure and anesthesia well and without c omplication. The patient was transported from the operating room to the recovery room with vital signs stable and vascular status intact to all digits of the right foot. The patient was given both written and verbal instructions to remain minimally weightbearing to the operative extremity, to keep dressings/splint clean, dry and intact and to take pain medication as directed. The patient will follow-up in the outpatient setting at their scheduled appointment. The patient was discharged with my personal number and was instructed to call if any questions or issues should arise. They were discharged home once anesthesia criteria was met.
== END 2022-12-10 13:05 | disposition home or self-care (01) ==
PROVIDERS: Anesthesiology; PCP Internal Medicine; Visit Provider Podiatrist Foot & Ankle Surgery
PROC: (CPT 28005; principal; 2022-12-10 09:40)
DX: M86.8X7 Other osteomyelitis, ankle and foot (principal); J44.9 Chronic obstructive pulmonary disease, unspecified; I11.0 Hypertensive heart disease with heart failure; I50.9 Heart failure, unspecified; Z86.718 Personal history of other venous thrombosis and embolism; Z79.01 Long term (current) use of anticoagulants; E11.40 Type 2 diabetes mellitus with diabetic neuropathy, unspecified; E78.5 Hyperlipidemia, unspecified; Z86.711 Personal history of pulmonary embolism
CPT/HCPCS: 28005; 36415; 36416; 76000; 80048; 82962; 87070; 87075; 87176; 87205; 88305; 88311; 93005; J0131; J0690; J2250; J2704; J3490; J7030

== ENCOUNTER → 2022-12-18 14:31 | Outpatient (BNVA) | payer BC, MEDICAID, SELFPAY | PROVIDERS: PCP Internal Medicine; Visit Provider Podiatrist Foot & Ankle Surgery | DX: E11.621 Type 2 diabetes mellitus with foot ulcer (principal); L97.512 Non-pressure chronic ulcer of other part of right foot with fat layer exposed; Z86.39 Personal history of other endocrine, nutritional and metabolic disease; M21.6X1 Other acquired deformities of right foot; Z79.84 Long term (current) use of oral hypoglycemic drugs; M21.541 Acquired clubfoot, right foot | CPT/HCPCS: 73630 ==

== ENCOUNTER 2023-03-05 05:48 | Outpatient (CLI) | payer BC, MEDICAID, SELFPAY ==
--- NOTE | 2023-03-05 | US_ITS ---
WS: [id number] RIGHT UPPER QUADRANT ULTRASOUND HISTORY: RUQ PAIN COMPARISON: 05/02/2017 Liver: 17.4 cm in length. Mild hepatomegaly and hepatic steatosis. Normal size liver with no bile marcos t dilatation. Portal Vein: Normal hepatopetal flow with monophasic waveform. Gallbladder: Status post cholecystectomy. CBD: 0.5 cm Pancreas: Normal size and echogenicity. Right kidney: 9.2 cm in length. Normal size and echogenicity. No hydronephrosis or mass. Aorta and IVC: Unremarkable abdominal aorta and IVC. No ascites. US/US abdomen limited [id number] IMPRESSION: 1. Prior cholecystectomy. 2. Mild hepatic steatosis and hepatomegaly. 3. No bile duct dilatation.
== END 2023-03-05 05:49 | disposition home or self-care (01) ==
LOC: RAD 05:48
PROVIDERS: PCP Internal Medicine; Visit Provider Internal Medicine
DX: R10.11 Right upper quadrant pain (principal); Z90.49 Acquired absence of other specified parts of digestive tract; K76.0 Fatty (change of) liver, not elsewhere classified
CPT/HCPCS: 76705

== ENCOUNTER → 2023-11-16 14:47 | Outpatient (BNVA) | payer BC, MEDICAID, SELFPAY | PROVIDERS: PCP Internal Medicine; Visit Provider Podiatrist Foot & Ankle Surgery | DX: I73.9 Peripheral vascular disease, unspecified; E11.621 Type 2 diabetes mellitus with foot ulcer; L97.512 Non-pressure chronic ulcer of other part of right foot with fat layer exposed; B35.1 Tinea unguium; M21.541 Acquired clubfoot, right foot; M21.6X9 Other acquired deformities of unspecified foot; E11.44 Type 2 diabetes mellitus with diabetic amyotrophy; G62.9 Polyneuropathy, unspecified; Z79.84 Long term (current) use of oral hypoglycemic drugs | CPT/HCPCS: 73630 ==

== ENCOUNTER 2023-12-07 17:48 | Emergency (ER) | payer BC, MEDICAID, SELFPAY ==
[2023-12-07] VITALS (10 sets, daily range): BP systolic 119–142; BP diastolic 58–70; PULSE 73–82; RESP 14–18; TEMP 36.6; O2SAT 95–100; BMI 31.8
--- NOTE | 2023-12-07 18:03 | XRR_ITS ---
PROCEDURE INFORMATION: Exam: XR Chest Exam date and time: 12/07/2023 6:10 PM Age: 58 years old Clinical indication: Shortness of breath; Additional info: SOB TECHNIQUE: Imaging protocol: Radiologic exam of the chest. Views: 1 view. COMPARISON: CR XR chest 2V* [id number] 05/07/2022 2:43 PM FINDINGS: Lungs: No focal consolidation. Pleural spaces: No evidence of pneumothorax. No evidence of pleural effusion. Heart/Mediastinum: Cardiomediastinal silhouette is within normal limits. Bones/joints: No evidence of acute osseous abnormality. XR/XR chest 1V portable [id number] IMPRESSION: 1. No acute cardiopulmonary abnormality.
[2023-12-07] MEDS: albuterol 2.5 mg/3 mL Neb INHALATION (18:16)
[2023-12-07] MEDS: ipratropium-albuterol 3 mL Neb INHALATION (18:16)
--- NOTE | 2023-12-07 18:17 | ED_ITS ---
HPI - General Adult General: Chief complaint: Airway/Esophagus Foreign Body Stated complaint: foreign object stuck in throat Time Seen by Provider: 12/07/23 18:02 Source: patient Mode of arrival: ambulatory Limitations: no limitations History of Present Illness: 58-year-old female states she was ate an apple roughly an hour ago she states she felt like she had aspirated started having a cough states she did cough up a piece of the apple and states she has had a slight cough and dyspnea since then states its improved some over the last 20 minutes she denies any pain denies any fever. Associated symptoms: Reports dyspnea; Deny chest pain, headache(s), nausea, rash or vomiting Review of Systems Const: Denies: fever(s), chills, body aches or change in appetite ENMT: Denies: throat pain or dental pain Card: Denies: chest pain Resp: Reports: dyspnea and non-productive cough GI: Denies: abdominal pain, nausea, vomiting or diarrhea : Denies: dysuria Musc: Denies: neck pain or back pain Skin/Breast: Denies: rash Neuro: Denies: headache(s) PFSH ED PFSH: Medical History (Updated 12/07/23 @ 19:41 by Gabriella Holden MD) Type 2 diabetes mellitus with foot ulcer Anticoagulation adequate with anticoagulant therapy TIA (transient ischemic attack) Benign essential HTN Near syncope Pulmonary embolism and infarction Pt was told to have a problem with blood clot and was advised to take the OAC indefinitely Chronic systolic CHF (congestive heart failure), NYHA class 2 Dilated cardiomyopathy History of chronic hypertension History of diabetes mellitus History of anemia History of pulmonary embolism CHF (congestive heart failure) History of CVA (cerebrovascular accident) Family History Other Adopted Unknown family medical history Social History Smoking and tobacco/nicotine status: never used tobacco/nicotine Alcohol intake: never Substance/Drug Use: never Physical Exam Const: COMMON NORMALS: no acute distress, patient oriented x3 and healthy appearing HENMT: COMMON NORMALS: normocephalic and atraumatic HEAD & SCALP: normocephalic and atraumatic Neck/C-Spine: COMMON NORMALS: full ROM and supple Chest: COMMONS NORMALS: normal inspection of the chest Resp: COMMON NORMALS: normal respiratory effort, No retractions, No use of accessory muscles and clear to auscultation bilaterally AUSCULTATION: clear to auscultation bilaterally Cardio: COMMON NORMALS: regular rate, regular rhythm and No murmurs present (Cardio) RATE: regular rate RHYTHM: regular rhythm Extremity: COMMON NORMALS: normal to inspection and full ROM Neuro: COMMON NORMALS: patient oriented x3, moves all extremities and no focal motor deficits Psych: COMMON NORMALS: mental status grossly normal, Normal thought process present and cooperative THOUGHT PROCESS: Normal thought process present Skin: COMMON NORMALS: no rashes or lesions noted and no wounds GENERAL SKIN EXAM: no rashes or lesions noted Course Vital Signs: Vital signs: Vital Signs Temperature 97.8 F 12/07/23 17:54 Pulse Rate 75 12/07/23 18:39 Respiratory Rate 18 12/07/23 18:18 Blood Pressure 119/58 12/07/23 19:41 Pulse Oximetry 97 12/07/23 19:41 Oxygen Delivery Me thod Room Air 12/07/23 18:28 MDM - General Adult Medical Decision Making Patient presents here with possible aspiration of food her cough is improved here x-ray shows no acute abnormality she is in no distress we will place her on antibiotics albuterol inform her if she has a fever or worsening cough or worsening shortness of breath she is to return immediately she understands agrees to plan she is to follow-up with PCP in 3 to 5 days. Medical Records I reviewed the patient's medical records. Lab Data Radiology Impressions Chest X-Ray 12/07/23 18:03 IMPRESSION: 1. No acute cardiopulmonary abnormality. All radiology interpretation(s) finalized by discharge Discharge Plan Discharge Patient Disposition: Home Clinical Impression: Aspiration of food Qualifiers: Encounter type: initial encounter Qualified Code(s): T17.928A - Food in respiratory tract, part unspecified causing other injury, initial encounter Condition: Stable Prescriptions: New cephalexin 500 mg capsule 500 mg PO TID 7 Days Qty: 21 0RF albuterol sulfate 90 mcg/actuation HFA aerosol inhaler 2 inh INHALATION Q6H PRN (Reason: bronchospasm) Qty: 8 0RF No Action Eliquis 2.5 mg tablet 2.5 mg PO BID furosemide 40 mg tablet 40 mg PO BID potassium chloride [Klor-Con M20] 20 mEq tablet,ER particles/crystals 20 meq PO BID valsartan 320 mg tablet 320 mg PO DAILY loratadine 10 mg tablet 10 mg PO DAILY calcium carbonate-vitamin D3 [Caltrate with Vitamin D3] 600 mg(1,500mg) -800 unit tablet 1 tab PO DAILY amlodipine 10 mg tablet 10 mg PO DAILY 30 Days Qty: 30 5RF atorvastatin [Lipitor] 80 mg tablet 80 mg PO DAILY 30 Days Qty: 30 5RF albuterol sulfate 90 mcg/actuation HFA aerosol inhaler 1 inh INHALATION QID PRN (Reason: Allergy Symptoms) metformin 500 mg tablet extended release 24hr 500 mg PO DAILY metoprolol tartrate 100 mg tablet 100 mg PO BID Qty: 180 1RF Rx Instructions: dose increase (DME) Right ankle AFO See Rx Instructions .Route .MEDSUPPLY Qty: 1 0RF Rx Instructions: Alpha & Benkelman permethrin 5 % cream 1 applic topical Q14D Qty: 60 0RF Rx Instructions: apply second treatment 14 days after first treatment if live lice remain amoxicillin-pot clavulanate 875-125 mg tablet 1 tab PO BID 10 Days Qty: 20 0RF clotrimazole-betamethasone 1-0.05 % cream 1 applic topical BID 28 Days Qty: 45 0RF hydrocodone-acetaminophen 5-325 mg tablet 1 tab PO Q6H PRN (Reason: pain) Qty: 28 0RF Discharge Orders: Discharge ED (Routine); Ordered 12/07/23 Ordered By: Gabriella Holden Referrals: Renu Knowles MD [Primary Care Provider] - 4-7 days Discharge Diet: Advance as tolerated Discharge Activity: Resume usual activity Patient Instructions: Aspiration Coding Level of Care Code ED Perfect Bind Machine Operator for Chg Ladan
--- NOTE | 2023-12-07 18:55 | PC.NURSE ---
video game script writer assumed care of pt at 1854 report from uNnu Lundberg
== END 2023-12-07 19:45 | disposition home or self-care (01) ==
PROVIDERS: Emergency Provider Emergency Medicine; PCP Internal Medicine
DX: T17.928A Food in respiratory tract, part unspecified causing other injury, initial encounter (principal); W44.F3XA Food entering into or through a natural orifice, initial encounter; Z79.01 Long term (current) use of anticoagulants; Z79.84 Long term (current) use of oral hypoglycemic drugs; E11.9 Type 2 diabetes mellitus without complications; Z86.73 Personal history of transient ischemic attack (TIA), and cerebral infarction without residual deficits; I11.0 Hypertensive heart disease with heart failure; I50.9 Heart failure, unspecified; I42.0 Dilated cardiomyopathy
CPT/HCPCS: 71045; 94640; 99283; J7613

== ENCOUNTER 2024-01-18 14:27 | Outpatient (CLI) | payer BC, MEDICAID, SELFPAY ==
--- NOTE | 2024-01-18 14:35 | XR_ITS ---
WS: [id number] Exam: XR hip RT 2-3V wo/w pel* [id number] Date/Time of Exam: 01/18/2024 2:48 PM Reason For Exam: R HIP JOINT PAIN No acute fracture or dislocation. Mild degenerative change of the joint compartment. Normal soft tissues. IMPRESSION: 1. Mild DJD. No fracture. Tonnis grade 1.
== END 2024-01-18 14:28 | disposition home or self-care (01) ==
LOC: RAD 14:30
PROVIDERS: PCP Internal Medicine; Visit Provider Internal Medicine
DX: M25.551 Pain in right hip (principal)
CPT/HCPCS: 73502

== ENCOUNTER 2024-02-09 09:48 | Outpatient (CLI) | payer BC, MEDICAID, SELFPAY ==
--- NOTE | 2024-02-09 09:54 | CT_ITS ---
WS: [id number] CT HEAD TECHNIQUE: Noncontrast CT of the head obtained from the skullbase to the vertex. CLINICAL INFORMATION: HEADACHE/INJURY OF HEAD COMPARISON: CT 04/28/2016 DLP: 981.[address] scans at [facility] use at least one of these dose optimization techniques: automated e xposure control; mA and/or kV adjustment per patient size (includes targeted exams where dose is matc hed to clinical indication); or iterative reconstruction. FINDINGS: No evidence of intracranial hemorrhage or mass effect. Ventricular system and basal cisterns are greco nt. Mild small vessel changes with mild parenchymal volume loss. No extra-axial fluid collections. No evidence of mass or mass effect. Vascular calcification. Paranasal sinuses and mastoid air cells are well aerated. .Normal visualized soft tissues. IMPRESSION: 1. No evidence of intracranial hemorrhage or mass effect. 2. No acute intracranial findings.
== END 2024-02-09 09:49 | disposition home or self-care (01) ==
LOC: RAD 09:48
PROVIDERS: PCP Internal Medicine; Visit Provider Nurse Practitioner Family
DX: S09.90XA Unspecified injury of head, initial encounter (principal); X58.XXXA Exposure to other specified factors, initial encounter
CPT/HCPCS: 70450

== ENCOUNTER 2024-03-24 20:24 | Emergency (ER) | payer BC, MEDICAID, SELFPAY ==
[2024-03-24 20:28] VITALS: BP 162/73; PULSE 75; RESP 18; TEMP 36.7; O2SAT 99
[2024-03-24 20:45] VITALS: BP 134/78; PULSE 72; RESP 16; O2SAT 97
--- NOTE | 2024-03-24 20:46 | ED_ITS ---
Documented by User: SHANNON Banegas 03/24/24 21:37 HPI - Extremity Problem General: Chief complaint: Extremity Problem,Nontraumatic Stated complaint: Look at Rt Foot\Pain Time Seen by Provider: 03/24/24 20:36 Source: patient Mode of arrival: ambulatory Limitations: no limitations History of Present Illness: Patient is a 58-year-old female who presents to the emergency department complaining of irritation to the lateral aspect of her right foot. Patient sees Dr. Duenas, shaker tender, for chronic diabetic foot changes. She had an osteotomy of her right fifth metatarsal, and was placed in an AFO, though it has caused repetitive friction and irritation to the lateral aspect of her foot. She has followed up for this complaint, though alterations have not yet been able to be made for her AFO. She states that her next appointment is not until April, and that the pain is getting too unbearable. She denies any exacerbating injuries or recent trauma. No open wounds or ulcers reported. MD Complaint: extremity pain Pain Consistency: constant Location: right Associated symptoms: Deny chest pain, fever(s) or rash Review of Systems General: Reports: 10 or more systems reviewed and unremarkable except in HPI and below Const: Denies: fever(s), chills or fatigue Eyes: Denies: change in vision ENMT: Denies: throat pain, ear or mastoid pain or nasal discharge Card: Denies: chest pain, palpitations, swelling of feet/ankles or lightheadedness Resp: Denies: dyspnea, productive cough or wheezing GI: Denies: abdominal pain, nausea, vomiting, diarrhea or constipation : Denies: flank pain, difficulty voiding, dysuria or urinary frequency Musc: Denies: neck pain, back pain or joint pain Skin/Breast: Reports: skin pain (Right lateral foot); Denies: rash Neuro: Denies: headache(s), numbness in extremities or weakness in extremities PFSH ED PFSH: Medical History Type 2 diabetes mellitus with foot ulcer Anticoagulation adequate with anticoagulant therapy TIA (transient ischemic attack) Benign essential HTN Near syncope Pulmonary embolism and infarction Pt was told to have a problem with blood clot and was advised to take the OAC indefinitely Chronic systolic CHF (congestive heart failure), NYHA class 2 Dilated cardiomyopathy History of chronic hypertension History of diabetes mellitus History of anemia History of pulmonary embolism CHF (congestive heart failure) History of CVA (cerebrovascular accident) Family History Other Adopted Unknown family medical history Social History Smoking and tobacco/nicotine status: never used tobacco/nicotine Alcohol intake: never Substance/Drug Use: never Physical Exam Const: COMMON NORMALS: no acute distress, patient oriented x3 and no limitations GENERAL APPEARANCE: cooperative, comfortable and well developed ORIENTATION/CONSCIOUSNESS: Yes awake, Yes oriented to person, Yes oriented to place and Yes oriented to time HENMT: COMMON NORMALS: normocephalic, atraumatic and hearing grossly normal bilaterally HEAD & SCALP: normocephalic and atraumatic Eye: COMMON NORMALS: Equal, round and reactive pupils present, EOMs intact bilaterally and conjunctivae normal CONJUNCTIVA: Yes conjunctivae normal PUPIL: Yes Equal, round and reactive pupils present Neck/C-Spine: COMMON NORMALS: full ROM, supple and no JVD Resp: COMMON NORMALS: normal respiratory effort, No retractions, No use of accessory muscles and clear to auscultation bilaterally AUSCULTATION: clear to auscultation bilaterally Cardio: COMMON NORMALS: no JVD, regular rate, regular rhythm, No clicks present (Cardio), No murmurs present (Cardio) and No rub (Cardio) RATE: regular rate RHYTHM: regular rhythm Extremity: COMMON NORMALS: full ROM and capillary refill normal NARRATIVE EXTREMITY EXAM: Postoperative changes noted to the right foot. Neuro: COMMON NORMALS: patient oriented x3, moves all extremities, no focal motor deficits and no sensory deficits noted SENSORIUM/ORIENTATION: Yes oriented to person, Yes oriented to place and Yes oriented to time Psych: COMMON NORMALS: mental status grossly normal and Normal thought process present THOUGHT PROCESS: Normal thought process present Skin: NARRATIVE SKIN EXAM: Erythema noted to the lateral aspect of the right foot, no open wounds or ulcerations. Course Vital Signs: Vital signs: Vital Signs Temperature 98.0 F 03/24/24 20:28 Pulse Rate 72 03/24/24 20:45 Respiratory Rate 16 03/24/24 20:45 Blood Pressure 134/78 03/24/24 20:45 Pulse Oximetry 97 03/24/24 20:45 Oxygen Delivery Me thod Room Air 03/24/24 20:45 MDM - Extremity (Nontraumatic) Medical Decision Making Patient presents for irritation from her AFO. Spoke with Dr. Guillen, shaker tender on-call, who states patient can be placed in a cam boot and will be put on the schedule to be seen next week for further alterations to be made to her AFO long-term. Patient informed of this, and will follow-up. There were no open wounds or any concerning findings that needed to be addressed with lab work or imaging. No radiology studies performed this visit Discharge Plan Discharge Patient Disposition: Home Clinical Impression: Foot pain, right Condition: Stable Prescriptions: No Action Eliquis 2.5 mg tablet 2.5 mg PO BID furosemide 40 mg tablet 40 mg PO BID potassium chloride [Klor-Con M20] 20 mEq tablet,ER particles/crystals 20 meq PO BID valsartan 320 mg tablet 320 mg PO DAILY loratadine 10 mg tablet 10 mg PO DAILY calcium carbonate-vitamin D3 [Caltrate with Vitamin D3] 600 mg(1,500mg) -800 unit tablet 1 tab PO DAILY amlodipine 10 mg tablet 10 mg PO DAILY 30 Days Qty: 30 5RF atorvastatin [Lipitor] 80 mg tablet 80 mg PO DAILY 30 Days Qty: 30 5RF albuterol sulfate 90 mcg/actuation HFA aerosol inhaler 1 inh INHALATION QID PRN (Reason: Allergy Symptoms) metformin 500 mg tablet extended release 24hr 500 mg PO DAILY metoprolol tartrate 100 mg tablet 100 mg PO BID Qty: 180 1RF Rx Instructions: dose increase (DME) Right ankle AFO See Rx Instructions .Route .MEDSUPPLY Qty: 1 0RF Rx Instructions: [facility] [place] gabapentin 300 mg capsule 300 mg PO DAILY permethrin 5 % cream 1 applic topical Q14D Qty: 60 0RF Rx Instructions: apply second treatment 14 days after first treatment if live lice remain amoxicillin-pot clavulanate 875-125 mg tablet 1 tab PO BID 10 Days Qty: 20 0RF (DME) orthotic adjustment See Rx Instructions .Route .MEDSUPPLY Qty: 1 0RF Rx Instructions: As directed to [facility] [place] clotrimazole-betamethasone 1-0.05 % cream See Rx Instructions .ROUTE .COMPLEX Qty: 45 0RF Dose Instruction: APPLY CREAM TOPICALLY TO AFFECTED AREA TWICE DAILY FOR 4 WEEKS Rx Instructions: APPLY CREAM TOPICALLY TO AFFECTED AREA TWICE DAILY FOR 4 WEEKS hydrocodone-acetaminophen 5-325 mg tablet 1 tab PO Q6H PRN (Reason: pain) Qty: 28 0RF albuterol sulfate 90 mcg/actuation HFA aerosol inhaler 2 inh INHALATION Q6H PRN (Reason: bronchospasm) Qty: 8 0RF Discharge Orders: Discharge ED (Routine); Ordered 03/24/24 Ordered By: Hugo Fay Referrals: Renu Knowles MD [Primary Care Provider] - Discharge Diet: Usual diet Discharge Activity: Increase activity as tolerated Patient Instructions: Pain Management Activity Restrictions/Additional Instructions: Use cam boot until follow-up with podiatry next week as discussed. Return with any new or worsening symptoms. Coding Level of Care Code ED Boat Operator for Chg Fwd Documented by User: Saud Esposito DO 03/27/24 16:49 HPI - Extremity Problem General: Chief complaint: Extremity Problem,Nontraumatic Stated complaint: Look at Rt Foot\Pain Time Seen by Provider: 03/24/24 20:36 PFSH ED PFSH: Medical History Type 2 diabetes mellitus with foot ulcer Anticoagulation adequate with anticoagulant therapy TIA (transient ischemic attack) Benign essential HTN Near syncope Pulmonary embolism and infarction Pt was told to have a problem with blood clot and was advised to take the OAC indefinitely Chronic systolic CHF (congestive heart failure), NYHA class 2 Dilated cardiomyopathy History of chronic hypertension History of diabetes mellitus History of anemia History of pulmonary embolism CHF (congestive heart failure) History of CVA (cerebrovascular accident) Family History Other Adopted Unknown family medical history Social History Smoking and tobacco/nicotine status: never used tobacco/nicotine Alcohol intake: never Substance/Drug Use: never Course Vital Signs: Vital signs: Vital Signs Temperature 98.0 F 03/24/24 20:28 Pulse Rate 72 03/24/24 20:45 Respiratory Rate 16 03/24/24 20:45 Blood Pressure 134/78 03/24/24 20:45 Pulse Oximetry 97 03/24/24 20:45 Oxygen Delivery Me thod Room Air 03/24/24 20:45 MDM - Extremity (Nontraumatic) Medical Decision Making Patient presents for irritation from her AFO. Spoke with Dr. Guillen, shaker tender on-call, who states patient can be placed in a cam boot and will be put on the schedule to be seen next week for further alterations to be made to her AFO long-term. Patient informed of this, and will follow-up. There were no open wounds or any concerning findings that needed to be addressed with lab work or imaging. Chart reviewed Discharge Plan Discharge Patient Disposition: Home Clinical Impression: Foot pain, right Condition: Stable Prescriptions: No Action Eliquis 2.5 mg tablet 2.5 mg PO BID furosemide 40 mg tablet 40 mg PO BID potassium chloride [Klor-Con M20] 20 mEq tablet,ER particles/crystals 20 meq PO BID valsartan 320 mg tablet 320 mg PO DAILY loratadine 10 mg tablet 10 mg PO DAILY calcium carbonate-vitamin D3 [Caltrate with Vitamin D3] 600 mg(1,500mg) -800 unit tablet 1 tab PO DAILY amlodipine 10 mg tablet 10 mg PO DAILY 30 Days Qty: 30 5RF atorvastatin [Lipitor] 80 mg tablet 80 mg PO DAILY 30 Days Qty: 30 5RF albuterol sulfate 90 mcg/actuation HFA aerosol inhaler 1 inh INHALATION QID PRN (Reason: Allergy Symptoms) metformin 500 mg tablet extended release 24hr 500 mg PO DAILY metoprolol tartrate 100 mg tablet 100 mg PO BID Qty: 180 1RF Rx Instructions: dose increase (DME) Right ankle AFO See Rx Instructions .Route .MEDSUPPLY Qty: 1 0RF Rx Instructions: [facility] [place] gabapentin 300 mg capsule 300 mg PO DAILY permethrin 5 % cream 1 applic topical Q14D Qty: 60 0RF Rx Instructions: apply second treatment 14 days after first treatment if live lice remain amoxicillin-pot clavulanate 875-125 mg tablet 1 tab PO BID 10 Days Qty: 20 0RF (DME) orthotic adjustment See Rx Instructions .Route .MEDSUPPLY Qty: 1 0RF Rx Instructions: As directed to [facility] [place] clotrimazole-betamethasone 1-0.05 % cream See Rx Instructions .ROUTE .COMPLEX Qty: 45 0RF Dose Instruction: APPLY CREAM TOPICALLY TO AFFECTED AREA TWICE DAILY FOR 4 WEEKS Rx Instructions: APPLY CREAM TOPICALLY TO AFFECTED AREA TWICE DAILY FOR 4 WEEKS hydrocodone-acetaminophen 5-325 mg tablet 1 tab PO Q6H PRN (Reason: pain) Qty: 28 0RF albuterol sulfate 90 mcg/actuation HFA aerosol inhaler 2 inh INHALATION Q6H PRN (Reason: bronchospasm) Qty: 8 0RF Discharge Orders: Discharge ED (Routine); Ordered 03/24/24 Ordered By: Hugo Fay Referrals: Renu Knowles MD [Primary Care Provider] - Discharge Diet: Usual diet Discharge Activity: Increase activity as tolerated Patient Instructions: Pain Management Activity Restrictions/Additional Instructions: Use cam boot until follow-up with podiatry next week as discussed. Return with any new or worsening symptoms. Coding Level of Care Code ED Boat Operator for Cortney Pickering
== END 2024-03-24 21:53 | disposition home or self-care (01) ==
PROVIDERS: Emergency Provider Physician Assistant; PCP Internal Medicine
DX: M79.671 Pain in right foot (principal); Z79.01 Long term (current) use of anticoagulants; Z79.84 Long term (current) use of oral hypoglycemic drugs; E11.9 Type 2 diabetes mellitus without complications; Z86.73 Personal history of transient ischemic attack (TIA), and cerebral infarction without residual deficits; I11.0 Hypertensive heart disease with heart failure; I50.9 Heart failure, unspecified; I42.0 Dilated cardiomyopathy
CPT/HCPCS: 99282

== ENCOUNTER 2024-10-12 13:27 | Outpatient (CLI) | payer BC, MEDICAID, SELFPAY ==
--- NOTE | 2024-10-12 13:30 | USCV_ITS ---
Candi Fuller Age: 59 Gender: F : 1965 Exam Date: 10/12/2024 13:47 Ordering Phys: Renu Knowles MD Technologist: Exam Location: [facility] [place] Indication: cp BP: 150 / 90 HR: 65 Rhythm: Sinus Technical Quality: Adequate MEASUREMENTS (Male / Female) Normal Values 2D ECHO LV Diastolic Diameter PLAX 5.3 cm 4.2 - 5.9 / 3.9 - 5.3 cm IVS Diastolic Thickness 1.3 cm 0.6 - 1.0 / 0.6 - 0.9 cm IVS Systolic Thickness 1.4 cm LVPW Diastolic Thickness 1.1 cm 0.6 - 1.0 / 0.6 - 0.9 cm LVPW Systolic Thickness 1.2 cm LVOT Diameter 2.0 cm LV Ejection Fraction 2D Teich 44.4 % LV Ejection Fraction MOD 4C 64.4 % LV Ejection Fraction MOD 2C 66.5 % LV Ejection Fraction 2C AL 65.4 % LA Diameter 3.4 cm RA Systolic Volume 4C AL 60.9 ml RA Systolic Volume 4C MOD 60.1 ml Aorta at Sinotubular Diameter 2.8 cm M-MODE LA Ao Ratio MM 1.4 AV Cusp Separation MM 1.6 cm DOPPLER AV Peak Velocity 282.7 cm/s LVOT Peak Velocity 71.0 cm/s AV Area Cont Eq vti 0.8 cm squared AV Area Cont Eq pk 0.8 cm squared MV Peak Velocity 109.7 cm/s TR Peak Velocity 265.0 cm/s TR Peak Gradient 28.1 mmHg TV Peak E Velocity 77.0 cm/s PV Peak Velocity 104.0 cm/s FINDINGS Left Ventricle Severe diffuse hypokinesia of the septum and the anteroseptal segments. LV ejection fraction around 40%, visual.mild left ventricular hypertrophy. Grade I/IV diastolic dysfunction (abnormal relaxation filling pattern), normal to mildly elevated filling pressures. Right Ventricle The right ventricle is normal in size and function. Right Atrium The right atrium is normal in size. Left Atrium Mildly increased left atrial size. Mitral Valve Thickened mitral valve. Trace mitral valve regurgitation. Aortic Valve Severe low gradient aortic valve stenosis, mean gradient 17 mmHg, BETTIE 0.78 cm squared. Peak velocity of 3 m/s with a peak gradient of 36 mmHg Tricuspid Valve No gross abnormalities noted Pulmonic Valve Trace pulmonary valve regurgitation. Estimated pulmonary artery peak systolic pressure 31 mmHg Pericardium Normal pericardium without effusion. Aorta Normal ascending aorta dimension. IVC The inferior vena cava appears normal. CONCLUSIONS Severe diffuse hypokinesia of the septum and the anteroseptal segments. LV ejection fraction around 40%, visual.mild left ventricular hypertrophy. Grade I/IV diastolic dysfunction (abnormal relaxation filling pattern), normal to mildly elevated filling pressures. Mildly increased left atrial size. Thickened mitral valve. Trace mitral valve regurgitation. Severe low gradient aortic valve stenosis, mean gradient 17 mmHg, BETTIE 0.78 cm squared. Peak velocity of 3 m/s with a peak gradient of 36 mmHg. Trace pulmonary valve regurgitation. Estimated pulmonary artery peak systolic pressure 31 mmHg. Compared to the study from 01/01/2020, there is worsening of the aortic carcinosis and a slight drop in the LV ejection fraction from 45% to 40% Dr Shiva Heart MD FAC (Electronically Signed) Final Date: 12 October 2024 22:30 S
== END 2024-10-12 13:28 | disposition home or self-care (01) ==
LOC: RAD 13:28
PROVIDERS: PCP Internal Medicine; Visit Provider Internal Medicine
DX: I50.30 Unspecified diastolic (congestive) heart failure (principal); I35.2 Nonrheumatic aortic (valve) stenosis with insufficiency; I34.89 Other nonrheumatic mitral valve disorders; I51.0 Cardiac septal defect, acquired
CPT/HCPCS: 93306

== ENCOUNTER 2024-12-21 12:54 | Emergency (ER) | payer BC, MEDICAID, SELFPAY ==
[2024-12-21 13:10] VITALS: BP 136/64; PULSE 58; TEMP 36.7; O2SAT 97; BMI 27.3
--- NOTE | 2024-12-21 13:17 | XR_ITS ---
WS: [id number] Left foot, 3 views, 12/21/2024 Clinical Data: injury Comparison: None. Findings: No fractures or dislocations are seen. No bone destruction or erosion is noted. There is faint calcification adjacent to the medial aspect of the left great toe IP joint. XR/XR foot LT min 3V* [id number] Impression: 1. Negative for fracture, bone destruction or erosion. 2. Minimal calcification adjacent to the medial aspect of left great toe IP mark nt.
--- NOTE | 2024-12-21 13:18 | W.ED.EXTPRO ---
HPI - Extremity Problem General: Chief complaint: Extremity Problem,Nontraumatic Stated complaint: L foot pain, redness Time Seen by Provider: 12/21/24 13:18 History of Present Illness: 59-year-old female comes in today for complaints of tenderness and redness to 2 toes on her left foot. Patient does not recall any injury. On my evaluation Dr. Purdy, podiatry, was in the room talking with patient and reviewing patient. He recommended evaluation of the labs x-ray and most likely follow-up in the office. Patient appears nontoxic. Patient does have a history of diabetes type 2. Related Data Home Medications ?Medication ?Instructions ?Recorded ?Confirmed apixaban 2.5 mg tablet (Eliquis) 2.5 mg PO BID 12/13/19 12/21/24 calcium 600 mg (as 1 tab PO DAILY 12/13/19 12/21/24 carbonate)-vitamin D3 20 mcg (800 unit) tablet (Caltrate with Vitamin D3) loratadine 10 mg tablet 10 mg PO DAILY 12/13/19 12/21/24 metformin 500 mg tablet,extended 500 mg PO DAILY 01/09/21 12/21/24 release 24hr (osmotic) gabapentin 300 mg capsule 300 mg PO DAILY 12/14/23 12/21/24 acetaminophen 500 mg tablet 1,000 mg PO Q6H PRN Pain 12/21/24 12/21/24 (Tylenol Extra Strength) empagliflozin 10 mg tablet 10 mg PO DAILY 12/21/24 12/21/24 (Jardiance) escitalopram oxalate 20 mg tablet 20 mg PO DAILY 12/21/24 12/21/24 Previous Rx's ?Medication ?Instructions ?Recorded amlodipine 10 mg tablet 10 mg PO DAILY 30 days #30 tabs 12/13/19 Right ankle AFO #1 ea 02/22/23 albuterol sulfate 90 mcg/actuation 2 inh inhalation Q6H PRN 12/07/23 aerosol inhaler bronchospasm #8 grams orthotic adjustment #1 ea 03/28/24 amoxicillin 875 mg-potassium 1 tab PO BID #20 tabs 12/21/24 clavulanate 125 mg tablet Allergies Allergy/AdvReac Type Severity Reaction Status Date / Time No Known Allergies Allergy Verified 12/21/24 13:17 Review of Systems General: Reports: 10 or more systems reviewed and unremarkable except in HPI and below PFSH ED PFSH: Medical History Type 2 diabetes mellitus with foot ulcer Anticoagulation adequate with anticoagulant therapy TIA (transient ischemic attack) Benign essential HTN Near syncope Pulmonary embolism and infarction Pt was told to have a problem with blood clot and was advised to take the OAC indefinitely Chronic systolic CHF (congestive heart failure), NYHA class 2 Dilated cardiomyopathy History of chronic hypertension History of diabetes mellitus History of anemia History of pulmonary embolism CHF (congestive heart failure) History of CVA (cerebrovascular accident) Family History Other Adopted Unknown family medical history Social History Smoking and tobacco/nicotine status: never used tobacco/nicotine Alcohol intake: never Substance/Drug Use: never Physical Exam Const: COMMON NORMALS: healthy appearing and alert HENMT: COMMON NORMALS: normocephalic HEAD & SCALP: normocephalic Neck/C-Spine: COMMON NORMALS: full ROM Resp: COMMON NORMALS: normal respiratory effort Cardio: COMMON NORMALS: regular rate and regular rhythm RATE: regular rate RHYTHM: regular rhythm GI: COMMON NORMALS: non-tender Back/Pelvis: COMMON NORMALS: thoracic and lumbar spine normal to inspection Extremity: LEFT LOWER EXTREMITY: Yes foot & digits (Erythema to the second and fifth digit. Maceration between toes) Neuro: SENSORIUM/ORIENTATION: Yes alert Skin: NARRATIVE SKIN EXAM: Patient had some erythema to the second and fifth digit on the left foot. Patient also has some apparent abrasions to the toes. Patient also has maceration of the tissue between the toes. Course Vital Signs: Vital signs: Vital Signs Temperature 98.0 F 12/21/24 13:10 Pulse Rate 60 12/21/24 15:10 Respiratory Rate 16 12/21/24 15:10 Blood Pressure 119/65 12/21/24 15:10 Pulse Oximetry 97 12/21/24 15:10 Oxygen Delivery Me thod Room Air 12/21/24 13:25 MDM - Extremity (Nontraumatic) Medical Decision Making 59-year-old female comes in today for complaints of redness and to the second and fifth digit on the left foot. Evaluation of the foot notes some erythema more significant on the second digit and the fifth digit. Patient has had some increased swelling to the digit. Patient does have some maceration of tissue between the toes. Pulses intact. Patient has type 2 diabetes. Differential diagnosis includes not limited to cellulitis, paronychia, tinea pedis, osteomyelitis. X-ray of the foot noted no bony involvement. CBC was unremarkable. CRP was unremarkable. CMP was unremarkable. Patient was given a gram of Rocephin. Patient be following up with Dr. Purdy in his office. Patient was started on Augmentin 875 twice daily for the next 10 days. Encourage fluids rest and follow-up. Recommended elevation of foot as much as possible. Patient and family both reported understanding. Lab Data 12/21/24 11:34 12/21/24 11:34 Radiology Impressions Foot X-Ray 12/21/24 13:17 Impression: 1. Negative for fracture, bone destruction or erosion. 2. Minimal calcification adjacent to the medial aspect of left great toe IP joint. Laboratory Results WBC 9.29 10^3/uL (3.29-11.43) 12/21/24 11:34 RBC 4.66 10^6/uL (3.85-5.65) 12/21/24 11:34 Hgb 12.50 g/dL (11.27-16.99) 12/21/24 11:34 Hct 39.2 % (36-47) 12/21/24 11:34 MCV 84.1 fl (85-98) L 12/21/24 11:34 MCH 26.8 pg (27-33) L 12/21/24 11:34 MCHC 31.9 g/dL (30-55) 12/21/24 11:34 RDW 13.2 % (12.1-15.1) 12/21/24 11:34 Plt Count 394 10^3/cmm (157-399) 12/21/24 11:34 MPV 10.0 fL (7.4-10.4) 12/21/24 11:34 Neut % (Auto) 60.8 % 12/21/24 11:34 Lymph % (Auto) 26.7 % 12/21/24 11:34 Frio % (Auto) 7.2 % 12/21/24 11:34 Eos % (Auto) 4.0 % 12/21/24 11:34 Baso % (Auto) 1.1 % 12/21/24 11:34 Neut # (Auto) 5.65 10^3/uL (1.8-7.7) 12/21/24 11:34 Lymph # (Auto) 2.5 10^3/uL (0.8-4.8) 12/21/24 11:34 Frio # (Auto) 0.7 10^3/uL (0.2-0.9) 12/21/24 11:34 Eos # (Auto) 0.4 10^3/uL (0.0-0.8) 12/21/24 11:34 Baso # (Auto) 0.1 10^3/uL (0.0-0.1) 12/21/24 11:34 Nucleated RBC % (auto) 0 % 12/21/24 11:34 Nucleated RBCs # 0.0 /100WBC 12/21/24 11:34 ESR 14 mm/hr (0-15) 12/21/24 11:34 Sodium 141 mmol/L (136-145) 12/21/24 11:34 Potassium 3.7 mmol/L (3.5-5.1) 12/21/24 11:34 Chloride 102 mmol/L (98-107) 12/21/24 11:34 Carbon Dioxide 23 mmol/L (22-29) 12/21/24 11:34 Anion Gap 19.7 (5-19) H 12/21/24 11:34 BUN 6 mg/dL (6-20) 12/21/24 11:34 Creatinine 0.6 mg/dL (0.5-0.9) 12/21/24 11:34 GFR Calculation 102.3 mL/min (90-130) 12/21/24 11:34 Glucose 102 mg/dL (65-115) 12/21/24 11:34 Calculated Osmolality 290 mOsm/kg (285-295) 12/21/24 11:34 Calcium 9.0 mg/dL (8.5-10.5) 12/21/24 11:34 Total Bilirubin 0.5 mg/dL (0.15-1.2) 12/21/24 11:34 AST 13 U/L (0-32) 12/21/24 11:34 ALT < 5 U/L (0-33) 12/21/24 11:34 Alkaline Phosphatase 92 U/L (35-105) 12/21/24 11:34 C-Reactive Protein 4.6 mg/L (0.0-4.9) 12/21/24 11:34 Total Protein 6.8 g/dL (6.6-8.7) 12/21/24 11:34 Albumin 4.4 g/dL (3.5-5.2) 12/21/24 11:34 Globulin 2.4 g/dL (1.3-4.6) 12/21/24 11:34 All radiology interpretation(s) finalized by discharge Discharge Plan Discharge Patient Disposition: Home Clinical Impression: Cellulitis Qualifiers: Site of cellulitis: extremity Site of cellulitis of extremity: lower extremity Laterality: left Qualified Code(s): L03.116 - Cellulitis of left lower limb Condition: Stable Prescriptions: New amoxicillin-pot clavulanate 875-125 mg tablet 1 tab PO BID Qty: 20 0RF No Action Eliquis 2.5 mg tablet 2.5 mg PO BID loratadine 10 mg tablet 10 mg PO DAILY calcium carbonate-vitamin D3 [Caltrate with Vitamin D3] 600 mg(1,500mg) -800 unit tablet 1 tab PO DAILY amlodipine 10 mg tablet 10 mg PO DAILY 30 Days Qty: 30 5RF metformin 500 mg tablet extended release 24hr 500 mg PO DAILY (DME) Right ankle AFO See Rx Instructions .Route .MEDSUPPLY Qty: 1 0RF Rx Instructions: [facility] [place] gabapentin 300 mg capsule 300 mg PO DAILY (DME) orthotic adjustment See Rx Instructions .Route .MEDSUPPLY Qty: 1 0RF Rx Instructions: As directed to [facility] [place] albuterol sulfate 90 mcg/actuation HFA aerosol inhaler 2 inh INHALATION Q6H PRN (Reason: bronchospasm) Qty: 8 0RF acetaminophen [Tylenol Extra Strength] 500 mg Tablet 1,000 mg PO Q6H PRN (Reason: Pain) escitalopram oxalate 20 mg tablet 20 mg PO DAILY Jardiance 10 mg tablet 10 mg PO DAILY Discharge Orders: Discharge ED (Routine); Ordered 12/21/24 Ordered By: Waylon De La Garza Referrals: Renu Knowles MD [Primary Care Provider] - Discharge Diet: Usual diet Discharge Activity: Increase activity as tolerated Patient Instructions: Cellulitis (ED) Activity Restrictions/Additional Instructions: Home and rest. Clean feet thoroughly with good mild soapy water and dry thoroughly. Elevate foot is much as possible. Follow-up with Dr. Purdy's office for repeat evaluation and monitoring of wound. Return to ED for new concerns such as high fever, worsening redness and pain, or new concerns. Print Language: Vietnamese Coding Level of Care Code ED Chief Ii Dispatcher for Cortney Pickering
[2024-12-21 13:25] VITALS: BP 135/62; PULSE 61; RESP 16; O2SAT 100
[2024-12-21 13:48] LABS: Basophils # 0.1 10^3/uL (0.0-0.1); Basophils % 1.1 %; Eosinophils # 0.4 10^3/uL (0.0-0.8); Hematocrit 39.2 % (36-47); Lymphocytes # 2.5 10^3/uL (0.8-4.8); Lymphocytes % 26.7 %; Mean Corpuscular HGB Conc 31.9 g/dL (30-55); Mean Corpuscular Hemoglobin 26.8 pg (27-33); Mean Corpuscular Volume 84.1 fl (85-98); Monocytes # 0.7 10^3/uL (0.2-0.9); Monocytes % 7.2 %; Neutrophils # 5.65 10^3/uL (1.8-7.7); Neutrophils % 60.8 %; Nucleated Red Blood Cells % 0 %; Platelet Count 394 10^3/cmm (157-399); Red Blood Count 4.66 10^6/uL (3.85-5.65); Red Cell Distribution Width 13.2 % (12.1-15.1); White Blood Count 9.29 10^3/uL (3.29-11.43)
[2024-12-21 14:10] LABS: Alanine Aminotransferase < 5 U/L (0-33); Albumin Level 4.4 g/dL (3.5-5.2); Alkaline Phosphatase 92 U/L (35-105); Anion Gap 19.7 (5-19); Aspartate Amino Transferase 13 U/L (0-32); Blood Urea Nitrogen 6 mg/dL (6-20); C Reactive Protein 4.6 mg/L (0.0-4.9); Carbon Dioxide 23 mmol/L (22-29); Chloride 102 mmol/L (98-107); Creatinine Clr Calc Pharmacy 83.9925; Globulin 2.4 g/dL (1.3-4.6); Glomerular Filtration Rate 102.3 mL/min (90-130); Glucose 102 mg/dL (65-115); Osmolality Calculated 290 mOsm/kg (285-295); Potassium 3.7 mmol/L (3.5-5.1); Sodium 141 mmol/L (136-145); Total Bilirubin 0.5 mg/dL (0.15-1.2); Total Protein 6.8 g/dL (6.6-8.7)
[2024-12-21 14:26] LABS: Erythrocyte Sedimentation Rate 14 mm/hr (0-15)
[2024-12-21] MEDS: cefTRIAXone 1,000 MG in water for injection-sterile 2.1 ML 2.1 MG IM (14:50)
[2024-12-21 15:10] VITALS: BP 119/65; PULSE 60; RESP 16; O2SAT 97
== END 2024-12-21 15:13 | disposition home or self-care (01) ==
PROVIDERS: Emergency Medicine; Emergency Provider Nurse Practitioner Family; PCP Internal Medicine
DX: L03.116 Cellulitis of left lower limb (principal); Z79.01 Long term (current) use of anticoagulants; Z79.84 Long term (current) use of oral hypoglycemic drugs; Z86.73 Personal history of transient ischemic attack (TIA), and cerebral infarction without residual deficits; E11.9 Type 2 diabetes mellitus without complications; I11.0 Hypertensive heart disease with heart failure; I50.9 Heart failure, unspecified
CPT/HCPCS: 36415; 73630; 80053; 85025; 85651; 86140; 96372; 99284; J0696

== ENCOUNTER → 2025-01-01 12:57 | Outpatient (BNVA) | payer BC, MEDICAID, SELFPAY | PROVIDERS: PCP Internal Medicine; Visit Provider Podiatrist Foot & Ankle Surgery | DX: E11.621 Type 2 diabetes mellitus with foot ulcer (principal); L97.522 Non-pressure chronic ulcer of other part of left foot with fat layer exposed; B35.3 Tinea pedis; E11.42 Type 2 diabetes mellitus with diabetic polyneuropathy; G62.9 Polyneuropathy, unspecified; I73.9 Peripheral vascular disease, unspecified; Z79.84 Long term (current) use of oral hypoglycemic drugs | CPT/HCPCS: 73630 ==

== ENCOUNTER 2025-01-30 10:53 | Outpatient (CLI) | payer BC, MEDICAID, SELFPAY ==
[2025-01-30 11:35] LABS: Basophils # 0.1 10^3/uL (0.0-0.1); Basophils % 1.3 %; Eosinophils # 0.6 10^3/uL (0.0-0.8); Eosinophils % 6.8 %; Hematocrit 42.2 % (36-47); Lymphocytes % 21.3 %; Mean Corpuscular HGB Conc 31.5 g/dL (30-55); Mean Corpuscular Hemoglobin 26.5 pg (27-33); Mean Corpuscular Volume 84.2 fl (85-98); Mean Platelet Volume 10.1 fL (7.4-10.4); Monocytes # 0.7 10^3/uL (0.2-0.9); Monocytes % 7.3 %; Neutrophils # 5.86 10^3/uL (1.8-7.7); Neutrophils % 63.1 %; Nucleated Red Blood Cells % 0 %; Platelet Count 431 10^3/cmm (157-399); Red Blood Count 5.01 10^6/uL (3.85-5.65); Red Cell Distribution Width 13.2 % (12.1-15.1); White Blood Count 9.29 10^3/uL (3.29-11.43)
[2025-01-30 11:47] LABS: INR 0.93 (0.83-1.21); Prothrombin Time (Patient) 13.1 Seconds (12.0-15.1)
[2025-01-30 12:03] LABS: Anion Gap 16.7 (5-19); Blood Urea Nitrogen 10 mg/dL (6-20); Calcium 9.4 mg/dL (8.5-10.5); Carbon Dioxide 24 mmol/L (22-29); Chloride 104 mmol/L (98-107); Glomerular Filtration Rate 85.6 mL/min (90-130); Glucose 132 mg/dL (65-115); Osmolality Calculated 293 mOsm/kg (285-295); Potassium 3.7 mmol/L (3.5-5.1); Sodium 141 mmol/L (136-145)
== END 2025-01-30 10:54 | disposition home or self-care (01) ==
LOC: LAB 10:54
PROVIDERS: PCP Internal Medicine; Visit Provider Internal Medicine Cardiovascular Disease
DX: I10 Essential (primary) hypertension (principal); I50.22 Chronic systolic (congestive) heart failure; I42.0 Dilated cardiomyopathy
CPT/HCPCS: 36415; 80048; 85025; 85610

== ENCOUNTER 2025-02-01 11:55 | Observation (INO) | payer BC, MEDICAID, SELFPAY ==
[2025-02-01] VITALS (16 sets, daily range): BP systolic 114–181; BP diastolic 63–94; PULSE 64–87; RESP 9–19; TEMP 36.4–36.8; O2SAT 97–98; BMI 25.4
[2025-02-01 07:41] LABS: Basophils # 0.1 10^3/uL (0.0-0.1); Basophils % 1.4 %; Eosinophils # 0.7 10^3/uL (0.0-0.8); Hematocrit 40.6 % (36-47); Lymphocytes # 3.2 10^3/uL (0.8-4.8); Lymphocytes % 31.1 %; Mean Corpuscular HGB Conc 32.5 g/dL (30-55); Mean Corpuscular Hemoglobin 27.1 pg (27-33); Mean Corpuscular Volume 83.4 fl (85-98); Mean Platelet Volume 10.3 fL (7.4-10.4); Monocytes # 0.9 10^3/uL (0.2-0.9); Monocytes % 8.3 %; Neutrophils # 5.32 10^3/uL (1.8-7.7); Nucleated Red Blood Cells % 0 %; Platelet Count 424 10^3/cmm (157-399); Red Blood Count 4.87 10^6/uL (3.85-5.65); Red Cell Distribution Width 13.2 % (12.1-15.1); White Blood Count 10.23 10^3/uL (3.29-11.43)
[2025-02-01] MEDS: diphenhydrAMINE 50 mg Capsule PO (07:43)
[2025-02-01] MEDS: aspirin 325 mg Tablet PO (07:43)
[2025-02-01 07:58] LABS: Anion Gap 19.7 (5-19); Blood Urea Nitrogen 6 mg/dL (6-20); Calcium 9.1 mg/dL (8.5-10.5); Carbon Dioxide 19 mmol/L (22-29); Chloride 106 mmol/L (98-107); Glomerular Filtration Rate 85.6 mL/min (90-130); Glucose 133 mg/dL (65-115); Osmolality Calculated 292 mOsm/kg (285-295); Potassium 3.7 mmol/L (3.5-5.1); Sodium 141 mmol/L (136-145)
--- NOTE | 2025-02-01 08:30 | XACV_ITS ---
Exam Room: 2 Ht: 152 cm Wt: 62 kg BSA: 1.64 m2 Gender: Female : 1965 Any Known Allergies: No known allergies Exam Priority: Routine Procedure(s): Procedure Description: Diagnostic procedure Procedure Description: PCI procedure Procedure Description: Left Heart Catheterization Procedure Description: Right Heart Catheterization Procedure Description: O2 saturation Procedure Description: Drug Eluting Coronary Stent Procedure Description: PTCA Procedure Description: Miscellaneous Procedure Description: ACT Procedure Description: Coronary Angiography Procedure Description: Pressure Wire Lissett STORY; Diagnostic Cath Status: Elective Diagnostic Findings * Left Main has no disease. * Circumflex has no disease. Luminal irregularity without significant stenosis. * Right Coronary Artery has no disease. * Mid Left Anterior Descending: significant 80% stenosis, BELLA: 3 flow, iFR performed: ratio is 0.84. * 1st Diagonal: obstructive 70% stenosis, BELLA: 3 flow. * Coronary angiography shows right dominance. Luminal irregularity without significant stenosis. PCI Indication: Other Interventional Findings * Mid Left Anterior Descendin% stenosis treated with a AB TREK 2.50X8 RX BALLOON, KULDEEP Conde DILSHAD 2.75X15 NORMA, and MDJoseph MARTINEZ EUPHORA RX 3.29Z69TT BALLOON. 0% residual stenosis, BELLA: 3 flow. * 1st Diagonal: 70% stenosis treated with a AB MINI TREK 2.00X12 RX BALLOON. 20% residual stenosis, BELLA: 3 flow. Conclusions 1. There is significant coronary artery disease with one vessel disease. 2. Mid Left Anterior Descending was treated with a Balloon, Drug Eluting Stent, and Balloon. 3. 1st Diagonal was treated with a Balloon. Recommendations * 1-Return to inpatient for close monitoring and routine cath care 2-Risk factor modification for secondary prevention 3-Statin and aspirin 81 mg life-long, if tolerated 4-Patient was pre-loaded with 600 mg of Plavix, continue Plavix 75mg p.o. daily for at least one year. We will assess at the end of one year again to continue if further or not 5-Continue optimal medical management 6-Follow up with Dr. Galeana in four weeks and your primary care in 10 days. Diagnostic RX Recommendation: PCI w/o planned CABG Pressures Phase:Rest AO : 108 / 72 ( 89 ) @ 11:14:00 AM 147 / 72 ( 99 ) @ 11:25:00 AM 187 / 87 ( 123 ) @ 11:34:00 AM 151 / 75 ( 105 ) @ 12:03:00 PM 127 / 66 ( 89 ) @ 12:07:00 PM 165 / 85 ( 116 ) @ 12:25:00 PM 171 / 86 ( 120 ) @ 12:25:00 PM LV : 191 / 8 / 16 @ 12:25:00 PM 196 / 7 / 13 @ 12:25:00 PM RV : 42 / -1 / 6 @ 10:58:00 AM PA : 35 / 14 ( 21 ) @ 10:57:00 AM RA : a wave = 9 v wave = 6 mean = 5 @ 11:00:00 AM PCW : a wave = 9 v wave = 10 mean = 7 @ 10:58:00 AM O2 Content Phase:Rest PA : O2 Content O2: 70.3 @ 11:14:00 AM Saturations Phase:Rest AO : 98 @ 11:25:00 AM RA : 74 @ 12:03:00 PM RV : 71 @ 11:34:00 AM PA : 70 @ 11:14:00 AM Cardiac Output Phase:Rest Rico : 3 @ :38:09 AM Rico Cardiac Index: 2 @ :38:09 AM Flow Phase:Rest Qp : 3 @ :38:09 AM Qs : 3 @ :38:09 AM Valves Phase:DefaultPhase AV : 25.0 @ :38:09 AM AV Mean Gradient: 33.0 @ :38:09 AM AV Flow: 127 @ :38:09 AM AV Area: 0.5 @ :38:09 AM AV Area Index: 0.31 @ :38:09 AM Clinical Evaluation EBL: 5mL-10mL Procedural Details Procedure Consent Obtained. Pre-Procedure Time Out. Identified patient by full name and date of as verbalized by the patient/guarantor. Does the consent match the physician's order: Yes. Accurate & Complete Informed Consent: Yes. Inpatient/Outpatient History & Physical on Chart: Yes. If H&P is completed, is and addenduem needed: No; If yes, is the addendum complete: N/A. Visualize and Verify Site with Patient/Guarantor: N/A. Relevant Radiology Images available: Yes. Pre-op teaching completed and patient verbalized understanding. The risks, benefits, and alternatives of sedation and/or procedure were discussed by physician. The patient agrees to continue. Procedure started. HA Clinical Fraility Score: 3: Managing Well. Box Office Manager Indications: Valvular Disease. Chest Pain Symptom Assessment: Atypical Angina. Correct patient, site and procedure confirmed by cath team. PERRLA. 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 Lungs clear x 5 lobes. IV Site on Arrival: 20 gauge in the right anticubital. IV Site on Arrival: 20 gauge in the left anticubital. IV Fluids: 0.9% NaCl at KVO. 0 mL infused prior to labourers. Pre Procedural Pulses: bilateral dorsalis pedis was 2+. Pre Procedural Pulses: bilateral posterior tibial was 2+. Pre Procedural Pulses: bilateral radial was 2+. Oxygen started at 2liters/min via nasal canula. right groin was prepped with chloroprep then draped in the usual sterile fashion. right radial was prepped with chloroprep then draped in the usual sterile fashion. right brachial was prepped with chloroprep then draped in the usual sterile fashion. Baseline sample Acquired. HR: 53 BPM. Physician arrived. Lidocaine 1% infiltrated to the right brachial. Sheath wire inserted through the brachial IV catheter. IV catheter out OTW. [place]el MON catheter inserted. Carson wire inserted through the catheter. Wire out. Contrast hand injected through the catheter. Carson wire inserted through the catheter. Wire out. Runthrough wire inserted. Wire and catheter out. Venous access obtained with a micropuncture set. [place] MON catheter inserted. Oximetry samples were obtained. Normal venous range: 60-85%. Normal arterial range: 95-100%. Pressure measurements obtained. Physician scrubbed in. Immediate Pre-Procedure Time Out. Correct Patient: Yes; Correct Procedure: Yes; Correct Site: Yes; Correct Patient Position: Yes; Correct Supplies: Yes; Dried Flammable Prep: Yes; Blood Products Available: N/A;. Lidocaine 1% infiltrated to the right radial. Arterial access obtained. A 5 swiss Geoffrey catheter in over wire. Multiple views taken of right coronary artery. Catheter redirected to the LCA. Glidewire inserted. Catheter removed over the glide wire. A 5 swiss TIG catheter in over wire. Multiple views taken of left coronary artery. Catheter removed over the exchange wire. 6 swiss XB 3 guide catheter was inserted over the wire. ACT drawn. Results 250 seconds. Therapeutic limits - pre-heparin administration 90-150 seconds and monitoring heparin during a vascular procedure >250 seconds. IFR guidewire was advanced through the guide catheter to lesion in the mid LAD. IFR Results: 0.84. Runthrough guidewire was advanced through the guide catheter to lesion in the mid LAD. IFR wire out. A second Runthrough guidewire was advanced through the guide catheter to lesion in the diaganol. Inflation number : 1 A AB TREK 2.50X8 RX BALLOON was prepped and advanced across the Mid LAD , then inflated to 14 VLAD for 0:14 seconds. Inflation number: 2 The AB TREK 2.50X8 RX BALLOON was reinflated across the Mid LAD, to 14 VLAD for 0:13 seconds. Balloon out. Results checked. Stent inserted to lesion in the mid LAD. Inflation Number : 3 A MDT R DILSHAD 2.75X15 NORMA -Lot Number# _[id number] EXP: 11/24/2027 was prepped and advanced across the Mid LAD. The stent was deployed at 14 VLAD for 0:18 seconds. Stent balloon out over wire. Diag wire removed. Inflation number : 4 A MDT NC EUPHORA RX [id number] BALLOON was prepped and advanced across the Mid LAD , then inflated to 14 VLAD for 0:15 seconds. Inflation number: 5 The MDT NC EUPHORA RX [id number] BALLOON was reinflated across the Mid LAD, to 14 VLAD for 0:10 seconds. Balloon out. ACT drawn. Results 293 seconds. Therapeutic limits - pre-heparin administration 90-150 seconds and monitoring heparin during a vascular procedure >250 seconds. Results checked. Wire directed to diagonal artery. Balloon inserted to lesion in the diaganol. Inflation number : 1 A AB MINI TREK 2.00X12 RX BALLOON was prepped and advanced across the 1st Diag , then inflated to 8 VLAD for 0:06 seconds. Inflation number: 2 The AB MINI TREK 2.00X12 RX BALLOON was reinflated across the 1st Diag, to 8 VLAD for 0:07 seconds. Balloon out. Results checked. Wire out. Results checked. Guide catheter out. A 5 swiss MPA1 catheter in over wire. Wire advanced to LV. Catheter removed over wire. 6fr Chu catheter in over wire. Wire out. Gradient taken: LV 191/8,16; AO 165/85(116); Mean: 30mmHg, Peak to Peak: 26mmHg, SEP: 20sec/min; HR: 69 BPM; SpO2: 97%. Gradient taken: LV 196/7,13; AO 171/86(120); Mean: 33mmHg, Peak to Peak: 25mmHg, SEP: 22sec/min; HR: 71 BPM; SpO2: 97%. Catheter removed over the exchange wire. Physician scrubbed out. Post-op diagnosis: Severe Aortic Stenosis, mid LAD stenosis significant by IFR. Placement of 1 NORMA. Post Procedure: Pulses reassessed and unchanged. PERRLA. 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 No VTE prophylaxis required. Medication's Wasted: Lidocaine 1% = 5 mL. Medication's Wasted: Nitro = 49.6 mg. Medication's Wasted: Heparin = 1000 units. Medication's Wasted: Other = Fentanyl 50mcg, Versed 1 mg. Total IV fluids: 100 mL. Complications: None. Estimated blood loss: 5mL-10mL. Responsiveness - Normal response to verbal stimuli; alert and oriented, PERRLA. Airway - Unaffected, no intervention required; spontaneous ventilation. Circulation: W/N/L, pulses unchanged. Nausea/Vomiting: No. A TR Band was successful obtaining hemostatsis at the Right Radial artery insertion site. A Suture was successful obtaining hemostatsis at the Right Femoral vein insertion site. A Manual Compression was successful obtaining hemostatsis at the Right Brachial Vein insertion site. Procedure completed. Patient transferred by bed to 1st floor. Vital chart was stopped. Access Site Site: Right Brachial Vein Sheath Size: 6 Fr Hemostasis Method: Manual Compression Hemostasis Success: Successful Site: Right Femoral vein Sheath Size: 6 Fr Hemostasis Method: Suture Hemostasis Success: Successful Site: Right Radial artery Sheath Size: 6 Fr Hemostasis Method: TR Band Hemostasis Success: Successful Procedure Medications Start: 9:26 AM Stop: 9:26 AM Medication: Versed Amount: 1 mg Route: I.V. Start: 9:32 AM Stop: 9:32 AM Medication: Fentanyl Amount: 25 mcg Route: I.V. Start: 10:04 AM Stop: 10:04 AM Medication: Versed Amount: 1 mg Route: I.V. Start: 10:06 AM Stop: 10:06 AM Medication: Nitrogylcerin Amount: 200 mcg Route: I.A. Start: 10:42 AM Stop: 10:42 AM Medication: Fentanyl Amount: 25 mcg Route: I.V. Start: 10:44 AM Stop: 10:44 AM Medication: Heparin Amount: 3000 units Route: I.V. Start: 10:46 AM Stop: 10:46 AM Medication: Versed Amount: 1 mg Route: I.V. Start: 11:06 AM Stop: 11:06 AM Medication: Nitrogylcerin Amount: 200 mcg Route: I.C. Start: 10:08 AM Stop: 10:08 AM Medication: Heparin Amount: 5000 units Route: I.V. Start: 11:33 AM Stop: 11:33 AM Medication: Plavix Amount: 600 mg Route: P.O. I, the attending physician, have reviewed and verified all procedure medications. Yes, all medications given per verbal order History/Risk Factors Hypertension: Yes Dyslipidemia: No Peripheral Arterial Disease (PAD): No Myocardial Infarction (OK): No Obesity: No Renal Disease: No Tobacco Use: Former Prior Interventions PCI: No CABG: No Valve Surgery: No Report Signatures Finalized by Diya Galeana MD on 02/16/2025 07:48 PM
--- NOTE | 2025-02-01 09:26 | W.PM.OPSUD ---
Surgery/Procedure H&P Update DATE OF PROCEDURE: February 01, 2025 DATE H&P PERFORMED: 01/16/25 H&P UPDATE INFORMATION: I have reviewed H&P completed within last 30 days, I have examined patient prior to procedure and No changes to prior documentation PREOP DIAGNOSIS: Preop for valve PRIMARY INDICATION FOR PROCEDURE: Right and left heart catheterization for preoperative valvular study. PLANNED PROCEDURE: Operation Date: 02/01/25 08:30 Proposed Procedures p Cardiac Catheterization - C w/w/o LV Coros(Left) - Diya Galeana MD PATIENT REASSESSED PRIOR TO SEDATION, WITH NO CHANGE NOTED: Yes PHYSICAL EXAM: alert, oriented x 3, clear to auscultation bilaterally, regular rate & rhythm and operative site marked AIRWAY EVAL/ANESTHESIA PLAN: ASA II, Risks, benefits & alternatives of sedation and/or procedure discussed and Patient agrees to continue as planned ADDITIONAL INFORMATION: All risk-benefit and alternative for the procedure has been explained in detail. Patient understand 2% risk for stroke major bleed, patient understand 5% risk of pseudoaneurysm contrast induced nephropathy urgent emergent vascular or cardiovascular surgery. Patient agreed to it and would like to proceed.
[2025-02-01 10:22] LABS: Arterial Blood Gas Hematocrit 24.5 % (37-47); Blood Gas Operator Identificat AMH; Blood Gas Sample Site PA; Blood Gas Sample Type Not specified; HGB O2 Sat 69.2 % (95-100); Methemoglobin 0.6 % (0.4-1.5); Oxygen Device ROOM AIR
[2025-02-01 10:24] LABS: Arterial Blood Gas Hematocrit 16.4 % (37-47); Blood Gas Operator Identificat AMH; Blood Gas Sample Site RA; Blood Gas Sample Type Not specified; Carboxyhemoglobin 1.2 %THgb (0.4-20.1); HGB O2 Sat 72.8 % (95-100); Methemoglobin 0.9 % (0.4-1.5); Oxygen Device ROOM AIR; Total Hemoglobin 5.4 g/dL (12-16)
[2025-02-01 10:26] LABS: Arterial Blood Gas Hematocrit 17.3 % (37-47); Blood Gas Operator Identificat AMH; Blood Gas Sample Site RV; Blood Gas Sample Type Not specified; Carboxyhemoglobin 1.3 %THgb (0.4-20.1); HGB O2 Sat 69.1 % (95-100); Methemoglobin 0.8 % (0.4-1.5); Oxygen Device ROOM AIR; Total Hemoglobin 5.6 g/dL (12-16)
[2025-02-01 10:28] LABS: Arterial Blood Gas Hematocrit 19.4 % (37-47); Blood Gas Operator Identificat AMH; Blood Gas Sample Site AO; Blood Gas Sample Type Arterial; Carboxyhemoglobin 0.7 %THgb (0.4-20.1); HGB O2 Sat 96.7 % (95-100); Methemoglobin 0.8 % (0.4-1.5); Oxygen Device ROOM AIR; Total Hemoglobin 6.3 g/dL (12-16)
--- NOTE | 2025-02-01 11:40 | PM.PROC ---
Procedure Note: Date of procedure: 02/01/25 Pre-procedure diagnosis: Preop/aortic stenosis Procedure: Left heart catheterization was performed indication was preop for aortic valve Right heart catheterization was performed indication was preop for aortic valve stenosis Left main: Luminal irregularity #2 LAD has mid high-grade stenosis, IFR was 0.90 since patient has reduced ejection fraction and IFR is borderline significant therefore we will proceeded with balloon angioplasty followed by drug-eluting stent to mid LAD with excellent angiographic result #3 LCx luminal irregularity #4 RCA has luminal irregularities Aortic valve: Peak to peak gradient 26 mmHg which is significant Right heart catheterization: Normal right heart pressures Plan: Load with 60 mg of Plavix continue aspirin statin Plavix and Eliquis for 1 week and then we will stop the aspirin after 1 week we will continue with Eliquis and Plavix for at least 6-month preferably 1 year Start patient on Protonix 40 mg once a day. Please make sure that Protonix should be 8-hour after taking the Plavix Check PTT in 2 hours if less than 45 pull out right groin sheath Coding Level of Care Code Acute Code for Cortney Pickering
--- NOTE | 2025-02-01 11:58 | PC.NURSE ---
patient received from central lab technician. TR band in place to right wrist. sheath in place to right femoral vein. Pressure dressing in place to right brachial. All site remain free from s/s of bleeding or hematoma formation. Patient denies pain or needs presently.
[2025-02-01 14:01] LABS: Partial Thromboplastin Time 197.7 SECONDS (23.9-36.7)
[2025-02-01 15:42] LABS: Partial Thromboplastin Time 40.1 SECONDS (23.9-36.7)
[2025-02-01 16:09] LABS: Glucose Point of Care 238 mg/dL (70-110)
--- NOTE | 2025-02-01 16:25 | PC.NURSE ---
Initiated venous sheath removal at 1605 and maintained pressure to site for 15min. Patient tolerated very well. No s/s of bleeding or hematoma formation observed. Covered site with 2x2 and bio-occlusive dressing. Patient denies pain or needs. Did assist patient up to bathroom. Dressing to right groin site remained c,d,i. No bleeding observed. Continuing to remove air from TR Band. Instructed patient on site care with restrictions. Patient verbalized complete understanding. Will continue to monitor.
[2025-02-01] MEDS: insulin lispro 100 unit/1 mL SUBCUT ×2 (17:08→20:58)
[2025-02-01] MEDS: acetaminophen 325 mg Tablet 650 MG PO (19:36)
[2025-02-01 20:33] LABS: Glucose Point of Care 171 mg/dL (70-110)
[2025-02-02] VITALS: BP 143/72; PULSE 67; RESP 18; TEMP 36.9; O2SAT 98
[2025-02-02 04:23] VITALS: BP 136/68; PULSE 71; RESP 15; O2SAT 94
[2025-02-02 04:32] LABS: Basophils # 0.1 10^3/uL (0.0-0.1); Basophils % 1.2 %; Eosinophils # 0.7 10^3/uL (0.0-0.8); Eosinophils % 7.5 %; Hematocrit 38.6 % (36-47); Lymphocytes # 2.8 10^3/uL (0.8-4.8); Lymphocytes % 30.5 %; Mean Corpuscular HGB Conc 31.9 g/dL (30-55); Mean Corpuscular Hemoglobin 27.3 pg (27-33); Mean Corpuscular Volume 85.6 fl (85-98); Mean Platelet Volume 9.8 fL (7.4-10.4); Monocytes # 0.9 10^3/uL (0.2-0.9); Monocytes % 9.4 %; Neutrophils # 4.75 10^3/uL (1.8-7.7); Neutrophils % 51.2 %; Nucleated Red Blood Cells % 0 %; Platelet Count 368 10^3/cmm (157-399); Red Blood Count 4.51 10^6/uL (3.85-5.65); Red Cell Distribution Width 13.4 % (12.1-15.1); White Blood Count 9.28 10^3/uL (3.29-11.43)
[2025-02-02 05:02] LABS: Anion Gap 14.9 (5-19); Blood Urea Nitrogen 11 mg/dL (6-20); Calcium 8.6 mg/dL (8.5-10.5); Carbon Dioxide 24 mmol/L (22-29); Chloride 104 mmol/L (98-107); Glomerular Filtration Rate 85.6 mL/min (90-130); Glucose 142 mg/dL (65-115); Osmolality Calculated 290 mOsm/kg (285-295); Potassium 3.9 mmol/L (3.5-5.1); Sodium 139 mmol/L (136-145)
[2025-02-02 06:00] VITALS: PULSE 73
[2025-02-02 06:10] LABS: Glucose Point of Care 142 mg/dL (70-110)
[2025-02-02 07:42] VITALS: BP 143/73; PULSE 70; RESP 17; TEMP 36.5; O2SAT 96
[2025-02-02] MEDS: aspirin 81 mg EC Tablet PO (08:45)
[2025-02-02] MEDS: clopidogrel 75 mg Tablet PO (08:45)
[2025-02-02] MEDS: insulin lispro 100 unit/1 mL SUBCUT (08:46)
--- NOTE | 2025-02-02 09:53 | P.DS_ITS ---
<Statement entered by Diya Galeana MD - 02/03/25 10:47> Patient was evaluated and cared for in conjunction with an advanced practice practitioner. I personally examined the patient and reviewed the chart and all pertinent data including imaging, telemetry, and laboratory results. I discussed the patient in detail with the advanced practice practitioner. Please see their note for complete H&P testing result and agreed upon plan of care for the patient. Discharge Providers Date of Admission: 02/01/25 11:55 Date of Discharge: February 02, 2025 Attending Provider at Admission: Diya Galeana MD Attending Provider at Discharge: Diya Galeana MD Primary Care Provider: Renu Knowles MD Reason for Visit Reason for Visit: I35.0 Brief History: Patient came [facility] and [facility] for aortic valve stenosis. Hospital Course Hospital Course LAD had a mid high-grade stenosis IFR was 0.9 balloon angioplasty and stenting of the mid LAD was performed with excellent angiographic results. Circumflex and RCA had luminal irregularities. Peak to peak gradient of the aortic valve was 26 mmHg which is significant right heart cath with normal heart pressures. Patient tolerated procedure well without complications. Physical Exam Narrative: General: No apparent distress, healthy appearing, well nourished Neck: No carotid bruit bilaterally Muskuloskeletal: Full ROM Respiratory: Normal respiratory effort, clear to auscultation bilaterally throughout all lung simental, no use of accessory muscles Cardio: No JVD, regular rate, regular rhythm, S1 S2 normal, no murmurs, radial site looks good GI: Normal to inspection, nondistended Extremities: Full ROM, normal, normal capillary refill, no cyanosis or edema Neuro: Alert and oriented x4, no focal motor deficits Psych: Affect normal, denies suicidal ideation, mental status grossly normal Skin: groin puncutre site clean, dry, intact w/o hematoma Discharge Data Studies Completed and Pending Pending at discharge Category Date Time Status LEAD [employer] SALES [employer]OCIATE request for service Routine Exams 02/01/25 08:30 Taken Laboratory Results WBC 9.28 10^3/uL (3.29-11.43) 02/02/25 04:20 RBC 4.51 10^6/uL (3.85-5.65) 02/02/25 04:20 Hgb 12.30 g/dL (11.27-16.99) 02/02/25 04:20 Hct 38.6 % (36-47) 02/02/25 04:20 MCV 85.6 fl (85-98) 02/02/25 04:20 MCH 27.3 pg (27-33) 02/02/25 04:20 MCHC 31.9 g/dL (30-55) 02/02/25 04:20 RDW 13.4 % (12.1-15.1) 02/02/25 04:20 Plt Count 368 10^3/cmm (157-399) 02/02/25 04:20 MPV 9.8 fL (7.4-10.4) 02/02/25 04:20 Neut % (Auto) 51.2 % 02/02/25 04:20 Lymph % (Auto) 30.5 % 02/02/25 04:20 Bibb % (Auto) 9.4 % 02/02/25 04:20 Eos % (Auto) 7.5 % 02/02/25 04:20 Baso % (Auto) 1.2 % 02/02/25 04:20 Neut # (Auto) 4.75 10^3/uL (1.8-7.7) 02/02/25 04:20 Lymph # (Auto) 2.8 10^3/uL (0.8-4.8) 02/02/25 04:20 Bibb # (Auto) 0.9 10^3/uL (0.2-0.9) 02/02/25 04:20 Eos # (Auto) 0.7 10^3/uL (0.0-0.8) 02/02/25 04:20 Baso # (Auto) 0.1 10^3/uL (0.0-0.1) 02/02/25 04:20 Nucleated RBC % (auto) 0 % 02/02/25 04:20 Nucleated RBCs # 0.0 /100WBC 02/02/25 04:20 APTT 40.1 SECONDS (23.9-36.7) H D 02/01/25 15:18 Specimen Type Arterial 02/01/25 10:09 Specimen Type Not specified 02/01/25 10:09 Specimen Type Not specified 02/01/25 10:09 Specimen Type Not specified 02/01/25 10:09 Sample Site Ao 02/01/25 10:09 Sample Site Pa 02/01/25 10:09 Sample Site Ra 02/01/25 10:09 Sample Site Rv 02/01/25 10:09 Navarro Test N/a 02/01/25 10:09 Navarro Test N/a 02/01/25 10:09 Navarro Test N/a 02/01/25 10:09 Navarro Test N/a 02/01/25 10:09 A-a O2 Gradient 1.0 mmHg (5-10) L 02/01/25 10:09 A-a O2 Gradient Not Reportable 02/01/25 10:09 A-a O2 Gradient Not Reportable 02/01/25 10:09 A-a O2 Gradient Not Reportable 02/01/25 10:09 Hematocrit 16.4 % (37-47) L 02/01/25 10:09 Hematocrit 17.3 % (37-47) L 02/01/25 10:09 Hematocrit 19.4 % (37-47) L 02/01/25 10:09 Hematocrit 24.5 % (37-47) L 02/01/25 10:09 Hgb O2 Saturation 69.1 % (95-100) L 02/01/25 10:09 Hgb O2 Saturation 69.2 % (95-100) L 02/01/25 10:09 Hgb O2 Saturation 72.8 % (95-100) L 02/01/25 10:09 Hgb O2 Saturation 96.7 % (95-100) 02/01/25 10:09 Carboxyhemoglobin 0.7 %THgb (0.4-20.1) 02/01/25 10:09 Carboxyhemoglobin 1.0 %THgb (0.4-20.1) 02/01/25 10:09 Carboxyhemoglobin 1.2 %THgb (0.4-20.1) 02/01/25 10:09 Carboxyhemoglobin 1.3 %THgb (0.4-20.1) 02/01/25 10:09 Methemoglobin 0.6 % (0.4-1.5) 02/01/25 10:09 Methemoglobin 0.8 % (0.4-1.5) 02/01/25 10:09 Methemoglobin 0.8 % (0.4-1.5) 02/01/25 10:09 Methemoglobin 0.9 % (0.4-1.5) 02/01/25 10:09 Total Hemoglobin 5.4 g/dL (12-16) L 02/01/25 10:09 Total Hemoglobin 5.6 g/dL (12-16) L 02/01/25 10:09 Total Hemoglobin 6.3 g/dL (12-16) L 02/01/25 10:09 Total Hemoglobin 8.0 g/dL (12-16) L 02/01/25 10:09 O2 Delivery Device Room air 02/01/25 10:09 O2 Delivery Device Room air 02/01/25 10:09 O2 Delivery Device Room air 02/01/25 10:09 O2 Delivery Device Room air 02/01/25 10:09 FiO2 21.0 % 02/01/25 10:09 FiO2 21.0 % 02/01/25 10:09 FiO2 21.0 % 02/01/25 10:09 FiO2 21.0 % 02/01/25 10:09 Matrix Supervisor ID [facility] 02/01/25 10:09 Matrix Supervisor ID [facility] 02/01/25 10:09 Matrix Supervisor ID [facility] 02/01/25 10:09 Matrix Supervisor ID [facility] 02/01/25 10:09 Sodium 139 mmol/L (136-145) 02/02/25 04:20 Potassium 3.9 mmol/L (3.5-5.1) 02/02/25 04:20 Chloride 104 mmol/L (98-107) 02/02/25 04:20 Carbon Dioxide 24 mmol/L (22-29) 02/02/25 04:20 Anion Gap 14.9 (5-19) 02/02/25 04:20 BUN 11 mg/dL (6-20) 02/02/25 04:20 Creatinine 0.7 mg/dL (0.5-0.9) 02/02/25 04:20 GFR Calculation 85.6 mL/min (90-130) L 02/02/25 04:20 Glucose 142 mg/dL (65-115) H 02/02/25 04:20 POC Glucose 142 mg/dL (70-110) H 02/02/25 06:06 Calculated Osmolality 290 mOsm/kg (285-295) 02/02/25 04:20 Calcium 8.6 mg/dL (8.5-10.5) 02/02/25 04:20 Procedures Performed Left heart catheterization was performed indication was preop for aortic valve Right heart catheterization was performed indication was preop for aortic valve stenosis Left main: Luminal irregularity #2 LAD has mid high-grade stenosis, IFR was 0.90 since patient has reduced ejection fraction and IFR is borderline significant therefore we will proceeded with balloon angioplasty followed by drug-eluting stent to mid LAD with excellent angiographic result #3 LCx luminal irregularity #4 RCA has luminal irregularities Aortic valve: Peak to peak gradient 26 mmHg which is significant Right heart catheterization: Normal right heart pressures Vitals Last Vital Signs Temp 97.7 F 02/02/25 07:42 Pulse 70 02/02/25 07:42 Resp 17 02/02/25 07:42 BP 143/73 02/02/25 07:42 Pulse Ox 96 02/02/25 07:42 O2 Del Method Room Air 02/02/25 07:42 Discharge Plan Discharge Patient Disposition: Home Condition: Stable Prescriptions: New clopidogrel 75 mg Tablet 75 mg PO DAILY Qty: 90 3RF aspirin 81 mg Tablet,Delayed Release (Dr/Ec) 81 mg PO DAILY Qty: 14 0RF pantoprazole [Protonix] 40 mg tablet,delayed release (DR/EC) 40 mg PO DAILY Qty: 30 1RF atorvastatin [Lipitor] 40 mg tablet 40 mg PO DAILY Qty: 30 0RF Continued Eliquis 2.5 mg tablet 2.5 mg PO BID loratadine 10 mg tablet 10 mg PO DAILY calcium carbonate-vitamin D3 [Caltrate with Vitamin D3] 600 mg(1,500mg) -800 unit tablet 1 tab PO DAILY (DME) Right ankle AFO See Rx Instructions .Route .MEDSUPPLY Qty: 1 0RF Rx Instructions: [facility] [place] (DME) orthotic adjustment See Rx Instructions .Route .MEDSUPPLY Qty: 1 0RF Rx Instructions: As directed to [facility] [place] (DME) [place] Boot See Rx Instructions .Route .MEDSUPPLY Qty: 1 0RF Rx Instructions: As directed by Home ANDREA 999 amlodipine 5 mg tablet 5 mg PO DAILY gabapentin 400 mg Capsule 400 mg PO TID metoprolol tartrate 100 mg Tablet 100 mg PO BID albuterol sulfate 90 mcg/actuation HFA aerosol inhaler 2 inh INHALATION Q6H PRN (Reason: bronchospasm) Qty: 8 0RF acetaminophen [Tylenol Extra Strength] 500 mg Tablet 1,000 mg PO Q6H PRN (Reason: Pain) escitalopram oxalate 20 mg tablet 20 mg PO DAILY Jardiance 10 mg tablet 10 mg PO DAILY Held metformin 500 mg tablet extended release 24hr 500 mg PO DAILY Hold Instructions: Resume on 02/04/25. Discharge Orders: Discharge Order (Routine); Ordered 02/02/25 Ordered By: Janina Garcia Referrals: Malinda Anaya FNP [Nurse Practitioner] - 02/06/25 4:00 pm Discharge Diet: Advance as tolerated, Cardiac and Diabetic Discharge Activity: Limit activity as instructed Patient Instructions: Coronary Angioplasty (DC), Cardiac Rehabilitation (DC), Opioid Safety, Post Angiogram Home Care Instructions Activity Restrictions/Additional Instructions: Discussed with patient no heavy lifting more than a gallon of milk as well as going up or down steps for 3 days. No driving for 1 day. Monitor for and report signs or symptoms of bleeding. Monitor for and report s/s of infection such as fever 101 or greater, swelling, redness or pain to the groin. Plan of Treatment: The plan is for patient to continue aspirin, Plavix, and Eliquis for 1 week, then stop aspirin after 1 week. Continue with Plavix and Eliquis for at least 6 months, preferably 1 year. F/U in the clinic in 1 week to be evaluated for anemia as well as bmp for renal function check. Patient will need referral to [facility] on an outpatient basis. They will let us know where they want to go in clinic. Most likely, [facility]. Discharge Attestations Time Spent in Discharge Care*: less than 30 min Quality Metrics Clinical Quality Measures [ No reported AMI, CVA or VTE this stay] Coding Level of Care Code Acute Code for Chg Fwd
[2025-02-02 10:10] VITALS: BP 143/73; PULSE 70; RESP 17; TEMP 36.5; O2SAT 96
--- NOTE | 2025-02-02 10:30 | PC.NURSE ---
patient discharged at 1028. Discharge instructions given about not lifting anything heavier than 5lb and no driving today. Patient also told to resume metformin on 02/04. Prescriptions sent to [facility]. Patient verbalized understanding.
== END 2025-02-02 10:31 | disposition home or self-care (01) ==
LOC: CSU 11:55
PROVIDERS: Admitting Provider Internal Medicine Cardiovascular Disease; PCP Internal Medicine; Visit Provider Internal Medicine Cardiovascular Disease
DX: I25.10 Atherosclerotic heart disease of native coronary artery without angina pectoris (principal); I42.9 Cardiomyopathy, unspecified; I11.0 Hypertensive heart disease with heart failure; I50.20 Unspecified systolic (congestive) heart failure; I27.20 Pulmonary hypertension, unspecified; Z79.84 Long term (current) use of oral hypoglycemic drugs; E11.9 Type 2 diabetes mellitus without complications; Z86.73 Personal history of transient ischemic attack (TIA), and cerebral infarction without residual deficits; Z79.01 Long term (current) use of anticoagulants; Z87.891 Personal history of nicotine dependence
CPT/HCPCS: 36415; 36416; 80048; 82810; 82962; 85025; 85347; 85730; 93460; 93571; 96372; 96374; 96376; 99152; 99153; C1725; C1751; C1769; C1874; C1887; C1894; C9600; G0378; J1644; J1815; J2250; J3010; J3490; J7030; J9999; Q0163; Q9967

== ENCOUNTER 2025-04-26 19:40 | Emergency (ER) | payer MEDICARE, MEDICAID, SELFPAY ==
[2025-04-26 19:43] VITALS: BP 128/75; PULSE 70; RESP 16; TEMP 36.6; O2SAT 97; BMI 26.5
--- OUTSIDE RECORDS SUMMARY | 2025-04-26 19:50 | XMS_ITS | Encounter Summary ---
Author Organization [facility] Address 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 Systems Software Engineer Name Role Phone Unavailable Primary Care Provider Unavailabl e Reason for Visit * Reason Onset Date Comments Appointment Notification 04/20/2025 Dr Andrew Office 04/20/2025 Encounter Details Date Type Department Care Team (Late st Contact Info) Description 04/20/2025 Telephone [facility] [address] [place] [phone] Valentine De La Cruz [address] [facility] [address] [place] [phone] Appointment Notification; Dr Andrew Office Social History Tobacco Use Types Packs/Day Years Used Date Smoking Tobacco: Never Smokeless Tobacco: Never Comments Unknown Sex and Gender Information Value Date Recorded Sex Assigned at Not on file Legal Sex Female 12:04 PM CDT Gender Identity Not on file Sexual Orientation Not on file documented as of this encounter Miscellaneous Notes * Telephone Encounter - Lulu Quinones - 04/20/2025 4:08 PM CDT Provider: Jono MESSAGE *Info* Pt was needing Dr [facility], transferred caller to them, thank you. Lulu Quinones, [facility] P[facility] documented in this encounter Plan of Treatment Not on file documented as of this encounter Visit Diagnoses Not on filedocumented in this encounter
--- OUTSIDE RECORDS SUMMARY | 2025-04-26 19:50 | XMS_ITS | Clinical Summary ---
Author Organization [facility] Address [address] [place] [address] Phone Care Team Providers Care Cooperer Name Role Phone Unavailable Primary Care Provider Unavailabl e Allergies No known active allergies Medications amLODIPine (NORVASC) 10 mg tablet Take 1 Tablet by mouth daily. 02/27/2025 Active Eliquis 2.5 mg tablet Take 1 Tablet by mouth 2 times daily. 02/21/2025 Active atorvastatin (LIPITOR) 40 mg tablet Take 1 Tablet by mouth daily. 02/28/2025 Active clopidogreL (PLAVIX) 75 mg Tablet Take 1 Tablet by mouth daily. 02/02/2025 Active Jardiance 10 mg tablet Take 10 mg by mouth daily in the morning. 03/20/2025 Active escitalopram oxalate (LEXAPRO) 20 mg tablet Take 1 Tablet by mouth daily. 02/22/2025 Active gabapentin (NEURONTIN) 400 mg capsule Take 400 mg by mouth 3 times daily. 03/20/2025 Active metFORMIN (GLUCOPHAGE XR) 500 mg Extended Release 24 hour tablet Take 1 Tablet by mouth 2 times daily. 02/22/2025 Active metoprolol tartrate (LOPRESSOR) 100 mg tablet Take 1 Tablet by mouth 2 times daily. 01/25/2025 Active pantoprazole (PROTONIX) 40 mg Tablet, Delayed Release (E.C.) Take 1 Tablet by mouth daily. 03/02/2025 Active Active Problems Problem Noted Date Diagnosed Date Severe aortic stenosis 04/06/2025 Encounters Date Type Department Care Team Description 04/26/[address] [facility] [address] [phone] Ra Unger MD Follow Up 04/23/[address] [facility] [address] [place] [address] Ra Unger MD Appointment Change 04/23/2025 Chart Note [place] [id number] [place] [phone] Ileana Phillips RN 04/20/2025 Telephone [place] [address] [place] [phone] Valentine De La Cruz, Appointment Notification; Dr Andrew Office 04/16/2025 Results Follow-Up [place] [address] [place] [phone] Valentine De La Cruz, CTA CHEST ABD PELVIS W AND/OR WO CONTRAST 04/09/2025 2:54 PM CDT - 04/09/2025 11:59 PM CDT Hospital Encounter [facility] Ultrasound [place] [address] [place] [phone] Ra Unger MD Discharge Disposition: Home or Self Care 04/09/2025 2:53 PM CDT - 04/09/2025 11:59 PM CDT Hospital Encounter [facility] Respiratory Therapy Services [place] [address] [place] [phone] Ra Unger MD Discharge Disposition: Home or Self Care 04/02/2025 Telephone [place] [address] [place] [phone] Valentine De La Cruz, Question 03/30/2025 Telephone [place] [id number] [place] [address] [place] [phone] Michael Arciniega clearanace 03/29/2025 1:30 PM CDT Office Visit [place] [address] [place] [phone] Ra Unger MD Preop testing (Primary Dx); Abnormality of aortic valve; Type 2 diabetes mellitus with hyperglycemia, without long-term current use of insulin (CMS/HCC); Severe aortic stenosis 03/27/2025 11:16 AM CDT - 03/27/2025 11:59 PM CDT Hospital Encounter [facility] CT Scan [address] [place] [phone] Valentine De La Cruz, Discharge Disposition: Home or Self Care 03/27/2025 11:10 AM CDT - 03/27/2025 11:59 PM CDT Hospital Encounter [facility] CT Scan [address] [place] [phone] Valentine De La Cruz, Discharge Disposition: Home or Self Care 03/27/2025 External Device Data [facility] ABSTRACTION Provider, Abstract 03/27/2025 External Device Data [facility] ABSTRACTION Provider, Abstract 03/27/2025 External Device Data [facility] ABSTRACTION Provider, Abstract 03/27/2025 Telephone [place] [address] [place] [phone] Valentine De La Cruz, Information 03/21/2025 11:15 AM CDT Office Visit [place] [address] [place] [phone] Valentine De La Cruz, Left bundle branch block (Primary Dx); Nonrheumatic aortic valve stenosis; ASHD (arteriosclerotic heart disease); Pulmonary hypertension (CMS/HCC); History of stroke; Nonischemic dilated cardiomyopathy (CMS/HCC); Nonrheumatic mitral valve regurgitation 03/21/2025 Cardiology Conference [place] [phone] [place] [phone] Kasey Ndiaey 03/21/2025 Telephone [place] [address] [place] [phone] Valentine De La Cruz DO Information 03/08/2025 Orders Only [facility] [address] [facility] [address] [place] [phone] Valentine De La Cruz, Aortic valve stenosis, etiology of cardiac valve disease unspecified (Primary Dx) 02/19/2025 Abstract [facility] [address] [facility] [address] [place] [phone] Malinda Anaya Kendra, REGISTERED LAND SURVEYOR 02/01/2025 9:05 AM CDT - 02/01/2025 11:59 PM CDT Hospital Encounter [facility] Cardiac Erp Programmer [address] [place] [phone] [facility], External Provider Discharge Disposition: Home or Self Care from Last 3 Months Social History Tobacco Use Types Packs/Day Years Used Date Smoking Tobacco: Never Smokeless Tobacco: Never Tobacco Cessation:Counseling Given: Not Answered Comments Unknown Sex and Gender Information Value Date Recorded Sex Assigned at Not on file Legal Sex Female 12:04 PM CDT Gender Identity Not on file Sexual Orientation Not on file Last Filed Vital Signs Vital Sign Reading Time Taken Comments Blood Pressure 134/82 03/29/2025 1:26 PM CDT Pulse 64 03/29/2025 1:26 PM CDT Temperature - - Respiratory Rate - - Oxygen Saturation - - Inhaled Oxygen Concentration - - Weight 60.9 kg (134 lb 3.2 oz) 03/29/2025 1:26 P M CDT Height 152.4 cm (5') 03/29/2025 1:26 PM CDT Body Mass Index 26.21 03/29/2025 1:26 PM CDT Plan of Treatment Health Maintenance Due Date Last Done Comments Pre-Diabetes and Diabetes Screening 1965 DTAP/TDAP/TD VACCINES (1 - Tdap) 1984 HEPATITIS B VACCINES (1 of 3 - 19+ 3-dose series) 1984 HPV/Cotest (21-29) 1986 CERVICAL CANCER SCREENING 1995 HPV/Cotest (30-65) 1995 PAP SMEAR 1995 BREAST CANCER SCREENING 2005 COLORECTAL SCREENING 2010 Colorectal Cancer Screening 2010 FIT-DNA Q 3 years 2010 FIT/FOBT Q 1 year 2010 Flex Sig/CT Colonography Q 5 years 2010 ZOSTER VACCINE (1 of 2) 2015 COVID-19 Vaccine (2023-2 5 season) 2024 09/16/2022, 05/20/2022, 06/06/2021, Additional history exists INFLUENZA VACCINE (#1) 2025 Procedures Procedure Name Priority Date/Time Associated Diagnosis Comments PULMONARY FUNCTION TEST Stat 04/10/2025 7:41 AM CDT Preop testing Abnormality of aortic valve US CAROTID DOPPLER Stat 04/09/2025 4: 08 PM CDT Preop testing Abnormality of aortic valve CTA CHEST ABD PELVIS W WO CONTRAST Routine 03/27/2025 1:00 PM CDT Nonrheumatic aortic valve stenosis CT HEART CARD STRUC W 3D W CONT Routine 03/27/2025 12:59 PM CDT Nonrheumatic aortic valve stenosis POC CREATININE Routine 03/27/2025 11:33 AM CDT OR ECG ROUTINE ECG W/LEAST 12 LDS W/I&R Routine 03/21/2025 12:18 PM CDT Aortic valve stenosis, etiology of cardiac valve disease unspecified CARDIAC CATH PRIOR STUDY Routine 02/01/2025 9:05 AM CDT Other chest pain from Last 3 Months Results * PULMONARY FUNCTION TEST (04/10/2025 7:41 AM CDT) Impressions Kirsten Aponte MD - 04/10/2025 7:41 AM CDT Spirometry is normal. Lung volumes are normal. Diffusing capacity is normal. Kirsten Tobar MD, 04/10/2025 7:41 AM us Ra Unger MD PFT ORDERABLES Final Result * US CAROTID DOPPLER (04/09/2025 4:08 PM CDT) Anatomical Region Laterality Modality Neck Ultrasound 04/09/2025 3:48 PM CDT Narrative 04/19/2025 3:19 PM CDT [facility] Radiology Services - Noninvasive Vascular [address] [address] Noninvasive Vascular Lab Cerebrovascular Exam Carotid Duplex Patient: Candi Fuller Study ID: [id number] Gender: F : 1965 Age: 59 Room: Height: 152.4cm Weight: 60.8kg BSA: 1.62m^2 Pt status: Outpatient Study Date: 04/09/2025 Study Time: 03:48:18 PM BSA: 1.62m^2 Ordering: Ra Unger Interpreting:Navjot Lane MD, RPVI Missile Pad Mechanic: Ana Obrien Summary Mild plaque is visualized in both carotid bulbs, but there is no evidence of hemodynamically significant narrowing in either carotid system. Antegrade flow is noted in both vertebral arteries. Impression: 1. Mild atherosclerosis 2. No evidence of significant stenosis Study data: Carotid duplex study. Complete study and Doppler flow study including spectral analysis, color and walsh scale imaging. Height: 152.4cm. Height: 60in. Weight: 60.8kg. Weight: 134.1lb. BMI: 26.2kg/m^2. BSA: 1.62m^2. Location: Vascular laboratory. Patient status: Outpatient. Study status: Routine. Objective: Pre-procedural evaluation for surgery. Procedure: A vascular evaluation was performed. Image quality was good. Arterial flow: - Right CCA proximal: Right CCA proximal 0.97m/sec 0.26m/sec - Right CCA mid: Right CCA mid 0.76m/sec 0.23m/sec - Right CCA distal: Right CCA distal 0.76m/sec 0.22m/sec - Right ICA proximal: Right ICA proximal 0.66m/sec 0.26m/sec 0.68 0.97 - Right ICA mid: Right ICA mid 0.88m/sec 0.34m/sec 0.91 1.28 - Right ICA distal: Right ICA distal 1.19m/sec 0.48m/sec 1.23 1.81 - Right ECA: Right ECA 0.9m/sec 0.17m/sec - Right vertebral: Right vertebral 0.54m/sec 0.17m/sec - Left CCA proximal: Left CCA proximal 0.71m/sec 0.17m/sec - Left CCA mid: Left CCA mid 0.66m/sec 0.22m/sec - Left CCA distal: Left CCA distal 0.64m/sec 0.21m/sec - Left ICA proximal: Left ICA proximal 0.79m/sec 0.29m/sec 1.12 1.34 - Left ICA mid: Left ICA mid 0.87m/sec 0.34m/sec 1.22 1.57 - Left ICA distal: Left ICA distal 1.07m/sec 0.29m/sec 1.51 1.34 - Left ECA: Left ECA 0.86m/sec 0.15m/sec - Left vertebral: Left vertebral 0.56m/sec 0.2m/sec Prepared and Electronically Authenticated Navjot Lane MD, RPSHOBHA Confirmed 04/19/2025 15:[address] MD - 04/19/2025 [facility] Radiology Services - Noninvasive Vascular [address] [place] [address] Noninvasive Vascular Lab Cerebrovascular Exam Carotid Duplex Patient: Candi Fuller Study ID: [id number] Gender: F : 1965 Age: 59 Room: Height: 152.4cm Weight: 60.8kg BSA: 1.62m^2 Pt status: Outpatient Study Date: 04/09/2025 Study Time: 03:48:18 PM BSA: 1.62m^2 Ordering: Ra Unger Interpreting:Navjot Lane MD, RPVI Missile Pad Mechanic: Ana Obrien Summary Mild plaque is visualized in both carotid bulbs, but there is no evidenceof hemodynamically significant narrowing in either carotid system. Antegradeflow is noted in both vertebral arteries. Impression: 1. Mild atherosclerosis 2. No evidence of significant stenosis Study data: Carotid duplex study. Complete study and Doppler flowstudy including spectral analysis, color and walsh scale imaging. Height:152.4cm. Height: 60in. Weight: 60.8kg. Weight: 134.1lb. BMI: 26.2kg/m^2. BSA: 1.62m^2. Location: Vascular laboratory. Patient status:Outpatient. Study status: Routine. Objective: Pre-procedural evaluation forsurgery. Procedure: A vascular evaluation was performed. Image quality wasgood. Arterial flow: - Right CCA proximal: Right CCA proximal 0.97m/sec 0.26m/sec - Right CCA mid: Right CCA mid 0.76m/sec 0.23m/sec - Right CCA distal: Right CCA distal 0.76m/sec 0.22m/sec - Right ICA proximal: Right ICA proximal 0.66m/sec 0.26m/sec 0.68 0.97 - Right ICA mid: Right ICA mid 0.88m/sec 0.34m/sec 0.91 1.28 - Right ICA distal: Right ICA distal 1.19m/sec 0.48m/sec 1.23 1.81 - Right ECA: Right ECA 0.9m/sec 0.17m/sec - Right vertebral: Right vertebral 0.54m/sec 0.17m/sec - Left CCA proximal: Left CCA proximal 0.71m/sec 0.17m/sec - Left CCA mid: Left CCA mid 0.66m/sec 0.22m/sec - Left CCA distal: Left CCA distal 0.64m/sec 0.21m/sec - Left ICA proximal: Left ICA proximal 0.79m/sec 0.29m/sec 1.12 1.34 - Left ICA mid: Left ICA mid 0.87m/sec 0.34m/sec 1.22 1.57 - Left ICA distal: Left ICA distal 1.07m/sec 0.29m/sec 1.51 1.34 - Left ECA: Left ECA 0.86m/sec 0.15m/sec - Left vertebral: Left vertebral 0.56m/sec 0.2m/sec Prepared and Electronically Authenticated Navjot Lane MD, RPVI Confirmed 04/19/2025 15:18 us Ra Unger MD US ORDERABLES Final Result * CTA CHEST ABD PELVIS W AND/OR WO CONTRAST (03/27/2025 1:00 PM CDT) Anatomical Region Laterality Modality Chest, Abdomen, Pelvis Computed Tomography 03/27/2025 11:5 1 AM CDT Impressions 03/29/2025 11:33 AM CDT IMPRESSION: 1. The aortic valve has a kqgre-ue-ohmmdufv amount of calcification. 2. Cardiomegaly. 3. Trace pericardial effusion. 4. Coronary artery atherosclerotic calcifications. 5. Mild mediastinal and right hilar lymphadenopathy. 6. Mild diffuse wall thickening of the distal esophagus suggestive of esophagitis. 7. A 3.0 cm heterogeneously enhancing lesion in the right lower liver could represent a hepatic hemangioma. Neoplasm is a less likely consideration. A contrast-enhanced MRI of the abdomen could be obtained for further evaluation, if clinically indicated. 8. Old bilateral pars interarticularis defects of the L5 vertebra. 9. Grade 1 anterolisthesis of L5 on S1 measures 3 mm. 10. Moderate degenerative changes of the lumbosacral spine at L5-S1. Narrative 03/29/2025 11:33 AM CDT EXAM: CTA CHEST ABD PELVIS W AND/OR WO CONTRAST DIAGNOSIS/REASON FOR EXAM: Nonrheumatic aortic valve stenosis. TAVR workup. DATE/TIME OF EXAM: 03/27/2025, 1:00 PM. COMPARISON: None. TECHNIQUE: CTA of the chest, abdomen, and pelvis was performed prior to and following the administration of intravenous contrast. 5 mm and 1.[address] images were obtained. Post-processing was performed, including sagittal and coronal reformations and 3-D reconstruction. CONTRAST: Isovue-370, 100 mL intravenous. FINDINGS: Aorta: The aortic valve has a fimbk-vt-rhqximct amount of calcification. The tubular portion of the ascending thoracic aorta measures 3.1 cm diameter. The descending thoracic aorta is normal in caliber. The thoracic artery contains a small amount of mixed calcified and noncalcified plaque. The abdominal aorta is normal in caliber and contains a zabnw-kj-tfuaoxhq amount of mixed calcified and noncalcified plaque. The celiac artery, superior mesenteric artery, and right renal artery have a small amount of atherosclerotic plaque causes no significant stenosis. The left renal artery has a mydmr-xc-icdesjco amount of atherosclerotic plaque that causes a short segment of mild to moderate stenosis. The inferior mesenteric artery is patent. The arteries the bilateral pelvis contain a small amount of atherosclerotic plaque that causes no significant stenosis. Chest: The heart size is enlarged. There is a trace pericardial effusion. The coronary arteries contain a moderate amount of calcified plaque. A pretracheal lymph node measures 1.0 cm across its short axis. A subcarinal lymph node measures 0.9 cm across its short axis. A right hilar lymph node measures 0.9 cm across its short axis. Multiple subcentimeter mediastinal and bilateral hilar lymph nodes are present. A small amount of dependent atelectasis is present within both lungs. There is no focal consolidation, pleural effusion, or pneumothorax. There is mild diffuse wall thickening of the distal esophagus. There are vfqt-im-hbwkkegy degenerative changes of the thoracic spine. Abdomen and pelvis: The liver is normal in size and contour. In the right lobe of the liver, there is a 3.0 x 2.8 cm (coronal image 56) heterogeneously enhancing lesion. The gallbladder is surgically absent. The spleen is unremarkable. The pancreas is unremarkable. No adrenal nodules identified. The bilateral kidneys are unremarkable. There is no hydronephrosis or hydroureter. The mildly distended bladder has mild diffuse wall thickening. The uterus is anteverted. The ovaries are not well-visualized. A gjecr-eo-vmrixjyx amount of stool and small amount of gas is seen throughout the colon. The appendix is unremarkable. There is no significant bowel dilation. The stomach is nondistended. A trace amount of free peritoneal fluid is seen within the pelvis. There is no free intraperitoneal air. The L5 vertebra as bilateral well-corticated pars interarticularis defects. Anterolisthesis of L5 on S1 measures 3 mm. Intervertebral disc height is mildly narrowed at L5-S1. Procedure Note Gama Herr MD - 03/29/2025 EXAM: CTA CHEST ABD PELVIS W AND/OR WO CONTRAST DIAGNOSIS/REASON FOR EXAM: Nonrheumatic aortic valve stenosis. TAVR workup. DATE/TIME OF EXAM: 03/27/2025, 1:00 PM. COMPARISON: None. TECHNIQUE: CTA of the chest, abdomen, and pelvis was performed prior to and following the administration of intravenous contrast. 5 mm and 1.[address] images were obtained. Post-processing was performed, including sagittal and coronal reformations and 3-D reconstruction. CONTRAST: Isovue-370, 100 mL intravenous. FINDINGS: Aorta: The aortic valve has a vjvhv-ne-njresxkk amount of calcification. The tubular portion of the ascending thoracic aorta measures 3.1 cm diameter. The descending thoracic aorta is normal in caliber. The thoracic artery contains a small amount of mixed calcified and noncalcified plaque. The abdominal aorta is normal in caliber and contains a piull-gp-ehgxndhr amount of mixed calcified and noncalcified plaque. The celiac artery, superior mesenteric artery, and right renal artery have a small amount of atherosclerotic plaque causes no significant stenosis. The left renal artery has a zrluh-xm-pdbdvyji amount of atherosclerotic plaque that causes a short segment of mild to moderate stenosis. The inferior mesenteric artery is patent. The arteries the bilateral pelvis contain a small amount of atherosclerotic plaque that causes no significant stenosis. Chest: The heart size is enlarged. There is a trace pericardial effusion. The coronary arteries contain a moderate amount of calcified plaque. A pretracheal lymph node measures 1.0 cm across its short axis. A subcarinal lymph node measures 0.9 cm across its short axis. A right hilar lymph node measures 0.9 cm across its short axis. Multiple subcentimeter mediastinal and bilateral hilar lymph nodes are present. A small amount of dependent atelectasis is present within both lungs. There is no focal consolidation, pleural effusion, or pneumothorax. There is mild diffuse wall thickening of the distal esophagus. There are emnl-zn-eyrfsyxh degenerative changes of the thoracic spine. Abdomen and pelvis: The liver is normal in size and contour. In the right lobe of the liver, there is a 3.0 x 2.8 cm (coronal image 56) heterogeneously enhancing lesion. The gallbladder is surgically absent. The spleen is unremarkable. The pancreas is unremarkable. No adrenal nodules identified. The bilateral kidneys are unremarkable. There is no hydronephrosis or hydroureter. The mildly distended bladder has mild diffuse wall thickening. The uterus is anteverted. The ovaries are not well-visualized. A gipxh-mn-xmoaqrce amount of stool and small amount of gas is seen throughout the colon. The appendix is unremarkable. There is no significant bowel dilation. The stomach is nondistended. A trace amount of free peritoneal fluid is seen within the pelvis. There is no free intraperitoneal air. The L5 vertebra as bilateral well-corticated pars interarticularis defects. Anterolisthesis of L5 on S1 measures 3 mm. Intervertebral disc height is mildly narrowed at L5-S1. IMPRESSION: 1. The aortic valve has a wdrqr-nx-fgptvzfs amount of calcification. 2. Cardiomegaly. 3. Trace pericardial effusion. 4. Coronary artery atherosclerotic calcifications. 5. Mild mediastinal and right hilar lymphadenopathy. 6. Mild diffuse wall thickening of the distal esophagus suggestive of esophagitis. 7. A 3.0 cm heterogeneously enhancing lesion in the right lower liver could represent a hepatic hemangioma. Neoplasm is a less likely consideration. A contrast-enhanced MRI of the abdomen could be obtained for further evaluation, if clinically indicated. 8. Old bilateral pars interarticularis defects of the L5 vertebra. 9. Grade 1 anterolisthesis of L5 on S1 measures 3 mm. 10. Moderate degenerative changes of the lumbosacral spine at L5-S1. us Valentine De La Cruz DO CT ORDERABLES Final Re sult * CT HEART CARD STRUC W 3D W CONT (03/27/2025 12:59 PM CDT) Anatomical Region Laterality Modality Chest Computed Tomogra phy 03/27/2025 11:5 1 AM CDT Impressions 03/28/2025 4:28 PM CDT Impression: 1. The aortic valve is moderately thickened and mildly calcified. The aortic valve appears bicuspid. The aortic valve leaflet length is approximately 1.3 cm. The aortic annulus measures 2.3 x 2.3 cm. The area of the annulus is 399 mm2 and the perimeter is 72mm. 35% phase. The co-planar view appears to be MARKS 11, caudal eight degrees. 2. The left main to aortic annulus measures 1.5 cm. 3. Aortic valve calcium score 385 4. The aorta measures 3.0 x 2.5 cm at the sinus of Valsalva, 2.8 x 2.5 cm at the sinotubular junction and 3.0 x 3.2 cm at the midascending aortic level. The average height of the sinus of Valsalva is 1.2 cm. Of note, the distal ascending aorta and arch are not imaged in this study. Please refer to separate CT for aortic findings. 5. Please refer to separate dictation for non-cardiac findings. Thank you very much for the referral. Ranges for aortic valve calcium score in men: Valve score greater than 3000 severe is very likely, greater than 2000, severely likely, score less than 1600 severe unlikely Ranges for aortic valve calcium score in women: Valve score greater than 1600 severe very likely, greater than 1200, severe likely, score less than 800 severe unlikely (KATHIA 2017, 30:372-92, Daiana et al) Narrative 03/28/2025 4:[address] coronary angiography, 03/27/2025 12:59 PM Indication: This is a 59 rxcmy-izlv-ilx Female with aortic stenosis being evaluated for a percutaneous aortic valve. The study is performed in an attempt to avoid an invasive procedure. Technique: Spiral acquisition during intravenous contrast administration using a 256 slice GE scanner. Multi-planar 3-D volume-rendering reconstruction was performed using a [employer] work station. Consecutive thin slices (<1 mm) were obtained. Findings: Of note, the distal ascending aorta and arch are not imaged in this study. Please refer to separate CT for aortic findings. Please note aortic measurements in the summary below. There is normal atrio-ventricular and ventriculo-arterial concordance, and systemic and pulmonary venous return. The tricuspid and pulmonic valve was not well visualized this examination. The pericardium is normal in appearance. A trace inferior pericardial effusion cannot be excluded. Procedure Note Ata Sheehan MD - 03/28/2025 CT coronary angiography, 03/27/2025 12:59 PM Indication: This is a 59 eonac-uhjr-eem Female with aortic stenosis being evaluated for a percutaneous aortic valve. The study is performed in an attempt to avoid an invasive procedure. Technique: Spiral acquisition during intravenous contrast administration using a 256 slice GE scanner. Multi-planar 3-D volume-rendering reconstruction was performed using a [employer] work station. Consecutive thin slices (<1 mm) were obtained. Findings: Of note, the distal ascending aorta and arch are not imaged in this study. Please refer to separate CT for aortic findings. Please note aortic measurements in the summary below. There is normal atrio-ventricular and ventriculo-arterial concordance, and systemic and pulmonary venous return. The tricuspid and pulmonic valve was not well visualized this examination. The pericardium is normal in appearance. A trace inferior pericardial effusion cannot be excluded. Impression: 1. The aortic valve is moderately thickened and mildly calcified. The aortic valve appears bicuspid. The aortic valve leaflet length is approximately 1.3 cm. The aortic annulus measures 2.3 x 2.3 cm. The area of the annulus is 399 mm2 and the perimeter is 72mm. 35% phase. The co-planar view appears to be MARKS 11, caudal eight degrees. 2. The left main to aortic annulus measures 1.5 cm. 3. Aortic valve calcium score 385 4. The aorta measures 3.0 x 2.5 cm at the sinus of Valsalva, 2.8 x 2.5 cm at the sinotubular junction and 3.0 x 3.2 cm at the midascending aortic level. The average height of the sinus of Valsalva is 1.2 cm. Of note, the distal ascending aorta and arch are not imaged in this study. Please refer to separate CT for aortic findings. 5. Please refer to separate dictation for non-cardiac findings. Thank you very much for the referral. Ranges for aortic valve calcium score in men: Valve score greater than 3000 severe is very likely, greater than 2000, severely likely, score less than 1600 severe unlikely Ranges for aortic valve calcium score in women: Valve score greater than 1600 severe very likely, greater than 1200, severe likely, score less than 800 severe unlikely (KATHIA 2017, 30:372-92, Daiana et al) Valentine De La Cruz DO CT ORDERABLES Final Re sult * POC CREATININE (03/27/2025 11:33 AM CDT) CREATININE POC 0.80 0.60 - 1.30 mg/dL 03/27/2025 11:33 AM CDT [facility] GFR POC >60 >=60 mL/min/1.7 3 sq meter 03/27/2025 11:33 AM CDT [facility] Comment:eGFR calculated with 2020 CKD-EPI equation. Vegetarian diet, extremely high or low muscle mass, and may affect results. Cystatin C with Glomerular Filtration Rate is a suitable alternative for these patients. Blood, whole 03/27/2025 11:3 3 AM CDT 03/27/2025 1:40 PM CDT Valentine De La Cruz DO POINT OF CARE TESTING Fi nal Result Performing Organization Address [facility] Co de Phone Number [facility] [id number] [address] [place] [address] * (ABNORMAL) OR ECG ROUTINE ECG W/LEAST 12 LDS W/I&R (03/21/2025 12:18 PM CDT) Narrative [facility] - 03/21/2025 12:18 PM CDT Valentine De La Cruz DO 04/21/2025 2:16 PM NSR, LBBB Valentine De La Cruz DO ECG ORDERABLES Edited R esult - Final Performing Organization Address [facility] de Phone Number [facility] CLIA [id number] [address] [place] [id number], [place] [phone] * CATH PRIOR STUDY (02/01/2025 9:05 AM CDT) Narrative [facility] - 03/29/2025 12:49 PM CDT This exam was auto finalized to allow images to be scanned to PACS. Procedure Note Ayla Amin - 03/29/2025 This exam was auto finalized to allow images to be scanned to PACS. us External Provider Sj FLUOROSCOPY ORDERABLES Fin al Result Performing Organization Address [facility] Co de Phone Number [id number] [address] [place] [address], [place] [phone] from Last 3 Months Insurance [facility] [address] [facility] [place] [facility] [id number]
--- OUTSIDE RECORDS SUMMARY | 2025-04-26 19:50 | XMS_ITS | Encounter Summary ---
Author Organization [facility] Address [address] [place] [address] Care Team Providers Care Mine Foreman Name Role Phone Unavailable Primary Care Provider Unavailabl e Reason for Referral * Eval and Treat (Routine) - Open Specialty Diagnoses / Procedures Referred By Contlux t Referred To Contact Gastroenterology Diagnoses Abnormal computed tomography angiography (CTA) Procedures DE OFFICE/OUTPATIENT ESTABLISHED MOD MDM 30 MIN DE OFFICE/OUTPATIENT NEW MODERATE MDM 45 MINUTES Valentine De La Cruz DO [address] [facility] [address] [place] [phone] Phone: tel: fax: [facility] [place] [address] Phone: tel: fax: Referral ID Status Reason Start Date Expiration Date Visits Re quested Visits Authorized [id number] Open 04/18/2025 04/18/2026 1 1 Encounter Details Date Type Department Care Team (Late st Contact Info) Description 04/16/2025 Results Follow-Up [facility] [address] [facility] [address] [place] [phone] Valentine De La Cruz DO [address] [facility] [address] [place] [phone] CTA CHEST ABD PELVIS W AND/OR WO CONTRAST Social History Tobacco Use Types Packs/Day Years Used Date Smoking Tobacco: Never Smokeless Tobacco: Never Comments Unknown Sex and Gender Information Value Date Recorded Sex Assigned at Not on file Legal Sex Female 12:04 PM CDT Gender Identity Not on file Sexual Orientation Not on file documented as of this encounter Miscellaneous Notes * Result Encounter Note - Arianne Puckett RN - 04/18/2025 11:32 AM CDT Contacted the patient via telephone to review results of CTA Chest (There was an abnormality in theliver. Recommend GI referral). Patient is to call back with any additional questions or concerns. Patient verbalized understanding. JORDIN Hunt Dr. documented in this encounter Plan of Treatment Scheduled Referrals Name Type Priority Associated Diagnoses Order Schedule AMB REFERRAL TO GASTROENTEROLOGY Outpatient Referral Routine Abnormal computed tomography angiography (CTA) Ordered: 04/18/2025 documented as of this encounter Visit Diagnoses Diagnosis Abnormal computed tomography angiography (CTA)- Primary documented in this encounter
--- OUTSIDE RECORDS SUMMARY | 2025-04-26 19:50 | XMS_ITS | Encounter Summary ---
Author Organization [facility] Address [address] [place] [address] Care Team Providers Care Associate Professor Of Surgery Name Role Phone Unavailable Primary Care Provider Unavailabl e Encounter Details Date Type Department Care Team (Late st Contact Info) Description 04/23/2025 Chart Note [facility] Cardiothoracic Surgery [facility] [address] [phone] Ileana Phillips, RN Social History Tobacco Use Types Packs/Day Years Used Date Smoking Tobacco: Never Smokeless Tobacco: Never Comments Unknown Sex and Gender Information Value Date Recorded Sex Assigned at Not on file Legal Sex Female 12:04 PM CDT Gender Identity Not on file Sexual Orientation Not on file documented as of this encounter Progress Notes * Ileana Phillips RN - 04/23/2025 6:41 PM CDT Images from the original note were not included. documented in this encounter Plan of Treatment Not on file documented as of this encounter Visit Diagnoses Not on filedocumented in this encounter
--- OUTSIDE RECORDS SUMMARY | 2025-04-26 19:50 | XMS_ITS | Encounter Summary ---
Author Organization [facility] Address [address] [place] [address] Care Team Providers Care Repairer Evaporator Name Role Phone Unavailable Primary Care Provider Unavailabl e Reason for Visit * Reason Onset Date Comments Follow Up 04/26/2025 Encounter Details Date Type Department Care Team (Late st Contact Info) Description 04/26/2025 Telephone [facility] Cardiothoracic Surgery [facility] [address] [phone] Ra Unger MD [address] [phone] Follow Up Social History Tobacco Use Types Packs/Day Years Used Date Smoking Tobacco: Never Smokeless Tobacco: Never Comments Unknown Sex and Gender Information Value Date Recorded Sex Assigned at Not on file Legal Sex Female 12:04 PM CDT Gender Identity Not on file Sexual Orientation Not on file documented as of this encounter Miscellaneous Notes * Telephone Encounter - Ileana Phillips RN - 04/26/2025 8:48 AM CDT Called Candi to let her know she does not have to come in to the clinic today. Dr. Unger can callher if she would like. She agrees with this plan. Let Dr. Unger know she will be expecting a call today after he is done with his case. documented in this encounter Plan of Treatment Not on file documented as of this encounter Visit Diagnoses Not on filedocumented in this encounter
--- OUTSIDE RECORDS SUMMARY | 2025-04-26 19:50 | XMS_ITS | Encounter Summary ---
Author Organization [facility] Address [address] [place] [address] Care Team Providers Care Gold Miner Name Role Phone Unavailable Primary Care Provider Unavailabl e Encounter Details Date Type Department Care Team (Late st Contact Info) Description 03/21/2025 Cardiology Conference [facility] [address] [facility] [address] [place] [phone] Kasey Ndiaye Social History Tobacco Use Types Packs/Day Years Used Date Smoking Tobacco: Never Smokeless Tobacco: Never Comments Unknown Sex and Gender Information Value Date Recorded Sex Assigned at Not on file Legal Sex Female 12:04 PM CDT Gender Identity Not on file Sexual Orientation Not on file documented as of this encounter Plan of Treatment Not on file documented as of this encounter Visit Diagnoses Not on filedocumented in this encounter
--- OUTSIDE RECORDS SUMMARY | 2025-04-26 19:50 | XMS_ITS | Encounter Summary ---
Author Organization [facility] Address [address] [place] [address] Care Team Providers Care Dealer Sales Rep Name Role Phone Unavailable Primary Care Provider Unavailabl e Reason for Visit * Reason Onset Date Comments Appointment Change 04/23/2025 Encounter Details Date Type Department Care Team (Late st Contact Info) Description 04/23/2025 Telephone [facility] Cardiothoracic Surgery [facility] [address] [phone] Ra Unger MD [address] [phone] Appointment Change Social History Tobacco Use Types Packs/Day Years Used Date Smoking Tobacco: Never Smokeless Tobacco: Never Comments Unknown Sex and Gender Information Value Date Recorded Sex Assigned at Not on file Legal Sex Female 12:04 PM CDT Gender Identity Not on file Sexual Orientation Not on file documented as of this encounter Miscellaneous Notes * Telephone Encounter - Ileana Phillips RN - 04/24/2025 2:06 PM CDT Spoke with Candi. I explained that her appointment has been moved from Wednesday at 2 to at 2 since her mitral valve does not need to be addressed at this time she will continue to see Dr. Unger. * Telephone Encounter - Ileana Phillips RN - 04/23/2025 6:50 PM CDT Called Candi to let her know her appointment was scheduled with the wrong physician. Rescheduled to the following day. LMOVM documented in this encounter Plan of Treatment Not on file documented as of this encounter Visit Diagnoses Not on filedocumented in this encounter
--- NOTE | 2025-04-26 19:55 | W.ED.EXTPRO ---
HPI - Extremity Problem General: Chief complaint: Extremity Problem,Nontraumatic Stated complaint: R Pinky toe bleeding around nail and pain Time Seen by Provider: 04/26/25 19:48 History of Present Illness: This patient is a 59 year old presenting with bleeding around her fifth right toe. She doesn't recall any injury but has dense neuropathy. She has onychomycosis and the toenail is deformed and sticks up from the toe. She took her shoes off and noted the issue. She denies any other complaints. She is on a blood thinner. Related Data Home Medications ?Medication ?Instructions ?Recorded ?Confirmed apixaban 2.5 mg tablet (Eliquis) 2.5 mg PO BID 12/13/19 02/06/25 calcium 600 mg (as 1 tab PO DAILY 12/13/19 02/06/25 carbonate)-vitamin D3 20 mcg (800 unit) tablet (Caltrate with Vitamin D3) loratadine 10 mg tablet 10 mg PO DAILY 12/13/19 02/06/25 metformin 500 mg tablet,extended 500 mg PO DAILY 01/09/21 02/06/25 release 24hr (osmotic) Held on 02/02/25. Instructions: Resume on 02/04/25. acetaminophen 500 mg tablet 1,000 mg PO Q6H PRN Pain 12/21/24 02/06/25 (Tylenol Extra Strength) empagliflozin 10 mg tablet 10 mg PO DAILY 12/21/24 02/06/25 (Jardiance) escitalopram oxalate 20 mg tablet 20 mg PO DAILY 12/21/24 02/06/25 amlodipine 5 mg tablet 5 mg PO DAILY 01/16/25 02/06/25 gabapentin 400 mg capsule 400 mg PO TID 01/31/25 02/06/25 metoprolol tartrate 100 mg tablet 100 mg PO BID 02/01/25 02/06/25 Previous Rx's ?Medication ?Instructions ?Recorded Right ankle AFO #1 ea 02/22/23 albuterol sulfate 90 mcg/actuation 2 inh inhalation Q6H PRN 12/07/23 aerosol inhaler bronchospasm #8 grams orthotic adjustment #1 ea 03/28/24 Cam Boot #1 ea 01/01/25 clopidogrel 75 mg tablet 75 mg PO DAILY #90 tabs 02/02/25 atorvastatin 40 mg tablet See Rx Instructions .Route 03/22/25 .COMPLEX #90 tabs pantoprazole 40 mg tablet,delayed 40 mg PO DAILY #30 tabs 04/02/25 release (Protonix) Allergies Allergy/AdvReac Type Severity Reaction Status Date / Time No Known Allergies Allergy Verified 04/26/25 19:47 PFSH ED PFSH: Medical History Type 2 diabetes mellitus with foot ulcer Anticoagulation adequate with anticoagulant therapy TIA (transient ischemic attack) Benign essential HTN Near syncope Pulmonary embolism and infarction Pt was told to have a problem with blood clot and was advised to take the OAC indefinitely Chronic systolic CHF (congestive heart failure), NYHA class 2 Dilated cardiomyopathy History of chronic hypertension History of diabetes mellitus History of anemia History of pulmonary embolism CHF (congestive heart failure) History of CVA (cerebrovascular accident) Family History Other Adopted Unknown family medical history Social History Smoking and tobacco/nicotine status: former use of tobacco/nicotine Alcohol intake: never Substance/Drug Use: never Physical Exam Const: GENERAL APPEARANCE: cooperative, comfortable and well kempt Resp: COMMON NORMALS: normal respiratory effort EFFORT & INSPECTION: Yes able to speak in complete sentences Extremity: NARRATIVE EXTREMITY EXAM: right foot - fifth toe has a thick, deformed toenail that is loose and there is fresh blood around the base. Patient has no sensation at all. Psych: APPEARANCE: Yes well kempt Course Vital Signs: Vital signs: Vital Signs Temperature 97.8 F 04/26/25 19:43 Pulse Rate 70 04/26/25 19:43 Respiratory Rate 16 04/26/25 19:43 Blood Pressure 128/75 04/26/25 19:43 Pulse Oximetry 97 04/26/25 19:43 Oxygen Delivery Me thod Room Air 04/26/25 19:43 MDM - Extremity (Nontraumatic) Medical Decision Making Toenail will continue to get caught and bleed. Patient was agreeable to having it removed today. Procedure - the nail was removed using scissors and forceps - with blunt dissection under the nail. No anesthetic was required. The nail came off easily with no complications - a non stick dressing was placed and the patient was counselled regarding wound care and monitoring for infection. No radiology studies performed this visit Discharge Plan Discharge Patient Disposition: Home Clinical Impression: Avulsed toenail, Onychomycosis, Peripheral neuropathy, History of diabetes mellitus Condition: Stable Prescriptions: No Action Eliquis 2.5 mg tablet 2.5 mg PO BID loratadine 10 mg tablet 10 mg PO DAILY calcium carbonate-vitamin D3 [Caltrate with Vitamin D3] 600 mg(1,500mg) -800 unit tablet 1 tab PO DAILY metformin 500 mg tablet extended release 24hr 500 mg PO DAILY (DME) Right ankle AFO See Rx Instructions .Route .MEDSUPPLY Qty: 1 0RF Rx Instructions: [facility] (DME) orthotic adjustment See Rx Instructions .Route .MEDSUPPLY Qty: 1 0RF Rx Instructions: As directed to [facility] (DME) Cam Boot See Rx Instructions .Route .MEDSUPPLY Qty: 1 0RF Rx Instructions: As directed by Home ANDREA 999 amlodipine 5 mg tablet 5 mg PO DAILY atorvastatin 40 mg tablet See Rx Instructions .ROUTE .COMPLEX Qty: 90 3RF Dose Instruction: Take 1 tablet by mouth once daily Rx Instructions: Take 1 tablet by mouth once daily pantoprazole [Protonix] 40 mg tablet,delayed release (DR/EC) 40 mg PO DAILY Qty: 30 1RF gabapentin 400 mg Capsule 400 mg PO TID metoprolol tartrate 100 mg Tablet 100 mg PO BID clopidogrel 75 mg Tablet 75 mg PO DAILY Qty: 90 3RF albuterol sulfate 90 mcg/actuation HFA aerosol inhaler 2 inh INHALATION Q6H PRN (Reason: bronchospasm) Qty: 8 0RF acetaminophen [Tylenol Extra Strength] 500 mg Tablet 1,000 mg PO Q6H PRN (Reason: Pain) escitalopram oxalate 20 mg tablet 20 mg PO DAILY Jardiance 10 mg tablet 10 mg PO DAILY Discharge Orders: Discharge ED (Routine); Ordered 04/26/25 Ordered By: Tatiana Chamberlain Referrals: Renu Knowles MD [Primary Care Provider, Internal Medicine] Patient Instructions: Opioid Safety, Pain Management, Patient Portal & Wilian Instructions Print Language: Irish Coding Level of Care Code ED Medical Screener for Cortney Pickering
== END 2025-04-26 20:01 | disposition home or self-care (01) ==
PROVIDERS: Emergency Provider Emergency Medicine; PCP Internal Medicine
DX: S91.204A Unspecified open wound of right lesser toe(s) with damage to nail, initial encounter (principal); B35.1 Tinea unguium; E11.42 Type 2 diabetes mellitus with diabetic polyneuropathy; I11.0 Hypertensive heart disease with heart failure; I50.22 Chronic systolic (congestive) heart failure; Z86.73 Personal history of transient ischemic attack (TIA), and cerebral infarction without residual deficits; X58.XXXA Exposure to other specified factors, initial encounter; Z79.01 Long term (current) use of anticoagulants; Z79.84 Long term (current) use of oral hypoglycemic drugs; Z79.02 Long term (current) use of antithrombotics/antiplatelets
CPT/HCPCS: 99282

== ENCOUNTER → 2025-05-15 10:41 | Outpatient (BNVA) | payer MEDICARE, MEDICAID, SELFPAY | PROVIDERS: PCP Internal Medicine; Visit Provider Internal Medicine Cardiovascular Disease | DX: I08.0 Rheumatic disorders of both mitral and aortic valves (principal); Z95.5 Presence of coronary angioplasty implant and graft; I48.91 Unspecified atrial fibrillation; E78.5 Hyperlipidemia, unspecified; Z87.891 Personal history of nicotine dependence; I11.0 Hypertensive heart disease with heart failure; I50.22 Chronic systolic (congestive) heart failure | CPT/HCPCS: 99214 ==

== ENCOUNTER 2025-05-16 20:42 | Emergency (ER) | payer MEDICARE, MEDICAID, SELFPAY ==
[2025-05-16 20:45] VITALS: BP 123/74; PULSE 61; RESP 18; TEMP 36.6; O2SAT 99; BMI 25.9
--- OUTSIDE RECORDS SUMMARY | 2025-05-16 20:47 | XMS_ITS | Clinical Summary ---
Author Organization [facility] Address [address] [place] [address] Phone Care Team Providers Care Fireworks Inspector Name Role Phone Unavailable Primary Care Provider [...] Encounters Date Type Department Care Team Description 05/07/2025 Telephone [facility] [address] [phone] Ra Unger MD Routine Psych/Medical Clearance 04/26/2025 Telephone [place] [id number] [place] [address] [place] [phone] Ra Unger MD Follow Up 04/23/2025 Telephone [place] [address] [place] [address] [place] [phone] Ra Unger MD Appointment Change 04/23/2025 Chart Note [place] [address] [place] [address] [place] [phone] Ileana Phillips RN 04/20/2025 Telephone [place] [address] [place] [phone] Valentine De La Cruz DO Appointment Notification; Dr Andrew Office 04/16/2025 Results Follow-Up [place] [address] [place] [phone] Valentine De La Cruz DO CTA CHEST ABD PELVIS W AND/OR WO CONTRAST 04/09/2025 2:54 PM CDT - 04/09/2025 11:59 PM CDT Hospital Encounter [facility] Ultrasound [place] [address] [facility] [address] [place] [address] Ra Unger MD Discharge Disposition: Home or Self Care 04/09/2025 2:53 PM CDT - 04/09/2025 11:59 PM CDT Hospital Encounter [facility] Respiratory Therapy Services [place] [address] [facility] [address] [place] [address] Ra Unger MD Discharge Disposition: Home or Self Care 04/02/2025 Telephone [place] [address] [place] [phone] Valentine De La Cruz DO Question 03/30/2025 Telephone [place] [address] [place] [address] [place] [phone] Lisakris Michael dental clearanace 03/29/2025 1:30 PM CDT Office Visit [facility] Cardiothoracic Surgery [facility] [address] [place] [address] [place] [phone] Ra Unger MD Preop testing (Primary Dx); Abnormality of aortic valve; Type 2 diabetes mellitus with hyperglycemia, without long-term current use of insulin (CMS/HCC); Severe aortic stenosis 03/27/2025 11:16 AM CDT - 03/27/2025 11:59 PM CDT Hospital Encounter [facility] Scan [address] [place] [phone] Valentine De La Cruz, Discharge Disposition: Home or Self Care 03/27/2025 11:10 AM CDT - 03/27/2025 11:59 PM CDT Hospital Encounter [facility] CT Scan [address] [place] [address] Valentine De La Cruz, Discharge Disposition: Home or Self Care 03/27/2025 External Device Data STL ABSTRACTION Provider, Abstract 03/27/2025 External Device Data [facility] ABSTRACTION Provider, Abstract 03/27/2025 External Device Data [facility] ABSTRACTION Provider, Abstract 03/27/2025 Telephone [place] [address] [place] [phone] Valentine De La Cruz, Information 03/21/2025 11:15 AM CDT Office Visit [place] [address] [place] [phone] Valentine De La Cruz, Left bundle branch block (Primary Dx); Nonrheumatic aortic valve stenosis; ASHD (arteriosclerotic heart disease); Pulmonary hypertension (CMS/HCC); History of stroke; Nonischemic dilated cardiomyopathy (CMS/HCC); Nonrheumatic mitral valve regurgitation 03/21/2025 Cardiology Conference [place] [address] [place] [phone] Kasey Ndiaye 03/21/2025 Telephone [place] [address] [facility] [address] [place] [phone] Valentine De La Cruz DO Information 03/08/2025 Orders Only [facility] [address] [facility] [address] [place] [phone] Valentine De La Cruz, Aortic valve stenosis, etiology of cardiac valve disease unspecified (Primary Dx) 02/19/2025 Abstract [place] [address] [facility] [address] [place] [phone] Malinda Anaya FNP from Last 3 Months Social History Tobacco [...] VACCINE (1 of 2) 2015 COVID-19 Vaccine (5 2023-2 5 season) 2024 09/16/2022, 05/20/2022, 06/06/2021, Additional history exists Medicare Ad[place]age ([place]) Preventative Visit/Annual Wellness Visit 10/25/2024 INFLUENZA VACCINE (#1) 2025 Procedures Procedure Name [...] POC CREATININE Routine 03/27/2025 11:33 AM CDT [place] ECG ROUTINE ECG W/LEAST 12 LDS W/I&R Routine 03/21/2025 12:18 PM CDT Aortic valve stenosis, etiology of cardiac valve disease unspecified from Last 3 Months Results * PULMONARY [...] PM CDT Narrative 04/19/2025 3:19 PM CDT [facility] Radiology Services - Noninvasive Vascular [address] [address] Noninvasive Vascular Lab Cerebrovascular Exam Carotid Duplex Patient: Candi Fullre Study ID: [id number] Gender: F : 1965 Age: 59 Room: Height: 152.4cm Weight: 60.8kg BSA: 1.62m^2 Pt status: Outpatient Study Date: 04/09/2025 Study Time: 03:48:18 PM BSA: 1.62m^2 Ordering: Ra Unger Interpreting:Navjot Lane MD, RPVI Quarry Equipment Operator: Ana Obrien Summary Mild plaque is visualized [...] Prepared and Electronically Authenticated Navjot Lane MD, FAROOQVI Confirmed 04/19/2025 15:[address] MD - 04/19/2025 [facility] Radiology Services - Noninvasive Vascular [address] [address] Noninvasive Vascular Lab Cerebrovascular Exam Carotid Duplex Patient: Candi Fuller Study ID: [id number] Gender: Nicole : 1965 Age: 59 Room: Height: 152.4cm Weight: 60.8kg BSA: 1.62m^2 Pt status: Outpatient Study Date: 04/09/2025 Study Time: 03:48:18 PM BSA: 1.62m^2 Ordering: Ra Unger Interpreting:Navjot Lane MD, FAROOQVI Quarry Equipment Operator: Ana Obrien Summary Mild plaque is visualized [...] IMPRESSION: 1. The aortic valve has a mnuve-qj-xpllxnxx amount of calcification. 2. Cardiomegaly. 3. Trace [...] FINDINGS: Aorta: The aortic valve has a vdjlh-aq-uleyzzqm amount of calcification. The tubular portion of the ascending thoracic aorta measures 3.1 cm diameter. The descending thoracic aorta is normal in caliber. The thoracic artery contains a small amount of mixed calcified and noncalcified plaque. The abdominal aorta is normal in caliber and contains a txwns-rq-iqqupugj amount of mixed calcified and noncalcified plaque. The celiac artery, superior mesenteric artery, and right renal artery have a small amount of atherosclerotic plaque causes no significant stenosis. The left renal artery has a icuho-qf-fpjewptr amount of atherosclerotic plaque that causes a [...] thickening of the distal esophagus. There are bcag-en-hzdbofda degenerative changes of the thoracic spine. Abdomen [...] anteverted. The ovaries are not well-visualized. A fkhur-yz-fpmapgph amount of stool and small amount of [...] FINDINGS: Aorta: The aortic valve has a xcmvl-yo-fpbmxbkt amount of calcification. The tubular portion of the ascending thoracic aorta measures 3.1 cm diameter. The descending thoracic aorta is normal in caliber. The thoracic artery contains a small amount of mixed calcified and noncalcified plaque. The abdominal aorta is normal in caliber and contains a surly-ma-idkbqjor amount of mixed calcified and noncalcified plaque. The celiac artery, superior mesenteric artery, and right renal artery have a small amount of atherosclerotic plaque causes no significant stenosis. The left renal artery has a ywuuk-qc-bbhoicvg amount of atherosclerotic plaque that causes a [...] thickening of the distal esophagus. There are qvzu-sj-geszgypc degenerative changes of the thoracic spine. Abdomen [...] anteverted. The ovaries are not well-visualized. A fsoow-xo-xiwshfgq amount of stool and small amount of [...] IMPRESSION: 1. The aortic valve has a vipnr-ot-vksnptnr amount of calcification. 2. Cardiomegaly. 3. Trace [...] the lumbosacral spine at L5-S1. us Valentine Brown Jono DO CT ORDERABLES Final Re sult * [...] 12:59 PM Indication: This is a 59 gmhjt-gjey-oqp Female with aortic stenosis being evaluated for a percutaneous aortic valve. The study is performed in an attempt to avoid an invasive procedure. Technique: Spiral acquisition during intravenous contrast administration using a 256 slice GE scanner. Multi-planar 3-D volume-rendering reconstruction was performed using a Vitrea work station. Consecutive thin slices (<1 mm) [...] 12:59 PM Indication: This is a 59 evpgt-pjuy-sqd Female with aortic stenosis being evaluated for a percutaneous aortic valve. The study is performed in an attempt to avoid an invasive procedure. Technique: Spiral acquisition during intravenous contrast administration using a 256 slice GE scanner. Multi-planar 3-D volume-rendering reconstruction was performed using a [employer] work station. Consecutive thin slices (<1 mm) [...] - 1.30 mg/dL 03/27/2025 11:33 AM CDT [facility] [employer] [facility] GFR POC >60 >=60 mL/min/1.7 3 sq meter 03/27/2025 11:33 AM CDT [facility] [employer] [facility] Comment:eGFR calculated with 2020 CKD-EPI equation. Vegetarian diet, extremely high or low muscle mass, and may affect results. Cystatin C with Glomerular Filtration Rate is a suitable alternative for these patients. Blood, whole 03/27/2025 11:3 3 AM CDT 03/27/2025 1:40 PM CDT Valentine De La Cruz DO POINT OF CARE TESTING Fi nal Result [facility] [employer] [facility] CLIA # [id number] [address] [place] [address] * (ABNORMAL) [place] ECG ROUTINE ECG W/LEAST 12 LDS W/I&R (03/21/2025 12:18 PM CDT) Narrative [facility] - 03/21/2025 12:18 PM CDT Valentine De La Cruz DO 04/21/2025 2:16 PM NSR, LBBB us Valentine De La Cruz DO ECG ORDERABLES Edited R esult - Final [facility] CLIA [id number] [address] [place] [address], [place] [phone] from Last 3 Months Insurance [facility] MEDICA[facility] [id number]
--- OUTSIDE RECORDS SUMMARY | 2025-05-16 20:47 | XMS_ITS | Encounter Summary ---
Author Organization [facility] Address [address] [place] [address] Care Team Providers Care Fulfillment Specialist Name Role Phone Unavailable Primary Care Provider Unavailabl e Reason for Referral * Eval and Treat (Routine) - Open Specialty Diagnoses / Procedures Referred By Contlux t Referred To Contact Gastroenterology Diagnoses Abnormal computed tomography angiography (CTA) Procedures [place] OFFICE/OUTPATIENT ESTABLISHED MOD MDM 30 MIN [place] OFFICE/OUTPATIENT NEW MODERATE MDM 45 MINUTES new request Valentine De La Cruz DO [address] [facility] [address] [place] [phone] Phone: tel: fax: [facility] Gastroenterology[address] [place] [address] Phone: tel: fax: Referral ID Status Reason Start Date Expiration Date Visits Requested Visits Authorized [id number] Open Performing Department to Schedule 04/18/2025 04/18/2026 1 1 Encounter Details Date Type Department Care Team (Late st Contact Info) Description 04/16/2025 Results Follow-Up [facility] Cardiology [facility] [address] [facility] [address] [place] [phone] Valentine De La Cruz DO [address] [facility] [address] [place] [phone] CTA CHEST ABD PELVIS W AND/OR [...]
--- NOTE | 2025-05-16 21:48 | W.ED.EAR ---
HPI - Ear Problem General: Chief complaint: Ear Stated complaint: R ear somthing moving Time Seen by Provider: 05/16/25 20:58 Source: patient Mode of arrival: ambulatory Limitations: no limitations History of Present Illness: Patient is a 59-year-old female that presents to the emergency department with discomfort in her right ear. She states it feels like there is an insect in there. She states it feels like there is something moving in there. She denies any fever or chills. She denies any cough or congestion. She denies getting any water in the ear in the shower or from swimming. She states she has having some discomfort at the base of the jaw on that right side as well. She denies any chest pain or shortness of breath. She denies any nausea or vomiting. She presents to the emergency department for further evaluation and treatment. Associated symptoms: Denies fever(s), headache(s) or neck pain Related Data Home Medications ?Medication ?Instructions ?Recorded ?Confirmed apixaban 2.5 mg tablet (Eliquis) 2.5 mg PO BID 12/13/19 05/15/25 calcium 600 mg (as 1 tab PO DAILY 12/13/19 05/15/25 carbonate)-vitamin D3 20 mcg (800 unit) tablet (Caltrate with Vitamin D3) loratadine 10 mg tablet 10 mg PO DAILY 12/13/19 05/15/25 metformin 500 mg tablet,extended 500 mg PO DAILY 01/09/21 05/15/25 release 24hr (osmotic) Held on 02/02/25. Instructions: Resume on 02/04/25. acetaminophen 500 mg tablet 1,000 mg PO Q6H PRN Pain 12/21/24 05/15/25 (Tylenol Extra Strength) empagliflozin 10 mg tablet 10 mg PO DAILY 12/21/24 05/15/25 (Jardiance) escitalopram oxalate 20 mg tablet 20 mg PO DAILY 12/21/24 05/15/25 amlodipine 5 mg tablet 5 mg PO DAILY 01/16/25 05/15/25 gabapentin 400 mg capsule 400 mg PO TID 01/31/25 05/15/25 metoprolol tartrate 100 mg tablet 100 mg PO BID 02/01/25 05/15/25 Previous Rx's ?Medication ?Instructions ?Recorded Right ankle AFO #1 ea 05/01/23 albuterol sulfate 90 mcg/actuation 2 inh inhalation Q6H PRN 12/07/23 aerosol inhaler bronchospasm #8 grams orthotic adjustment #1 ea 03/28/24 Cam Boot #1 ea 01/01/25 clopidogrel 75 mg tablet 75 mg PO DAILY #90 tabs 02/02/25 atorvastatin 40 mg tablet See Rx Instructions .Route 03/22/25 .COMPLEX #90 tabs pantoprazole 40 mg tablet,delayed 40 mg PO DAILY #30 tabs 04/02/25 release (Protonix) ciprofloxacin 0.3 %-dexamethasone 4 drp otic (ear) BID 7 days #7.5 mL 05/16/25 0.1 % ear drops,suspension Allergies Allergy/AdvReac Type Severity Reaction Status Date / Time No Known Allergies Allergy Verified 05/16/25 20:48 Review of Systems General: Reports: 10 or more systems reviewed and unremarkable except in HPI and below Const: Denies: fever(s) or chills Eyes: Denies: eye discharge or eye redness ENMT: Reports: other (Right ear pain and foreign body sensation) Card: Denies: chest pain Resp: Denies: dyspnea, productive cough, non-productive cough or wheezing GI: Denies: abdominal pain, nausea or vomiting : Denies: flank pain, difficulty voiding or dysuria Musc: Denies: neck pain, back pain or extremity pain Skin/Breast: Denies: rash, pruritus or erythema Neuro: Denies: headache(s) Psych: Denies: anxiety Endo: Denies: polyuria or polydipsia Theodore/Lymph: Denies: easy bruising, easy bleeding or petechiae All/Imm: Denies: urticaria, throat swelling or tongue swelling PFSH ED PFSH: Medical History Type 2 diabetes mellitus with foot ulcer Anticoagulation adequate with anticoagulant therapy TIA (transient ischemic attack) Benign essential HTN Near syncope Pulmonary embolism and infarction Pt was told to have a problem with blood clot and was advised to take the OAC indefinitely Chronic systolic CHF (congestive heart failure), NYHA class 2 Dilated cardiomyopathy History of chronic hypertension History of diabetes mellitus History of anemia History of pulmonary embolism CHF (congestive heart failure) History of CVA (cerebrovascular accident) Family History Other Adopted Unknown family medical history Social History Smoking and tobacco/nicotine status: former use of tobacco/nicotine Alcohol intake: never Substance/Drug Use: never Physical Exam Const: COMMON NORMALS: no acute distress, no limitations and alert GENERAL APPEARANCE: cooperative ORIENTATION/CONSCIOUSNESS: Yes awake HENMT: COMMON NORMALS: normocephalic, atraumatic, external ears normal, TM's normal bilaterally and Normal external nose present HEAD & SCALP: normocephalic and atraumatic NOSE: Normal external nose present EXTERNAL EAR: Yes external ears normal EXTERNAL AUDITORY CANAL: Abnormal EAC present EAC laterality: right Details: erythema and edema TYMPANIC MEMBRANE: TM's normal bilaterally THROAT: uvula midline Neck/C-Spine: COMMON NORMALS: full ROM and no lymphadenopathy Resp: COMMON NORMALS: normal respiratory effort, No retractions and clear to auscultation bilaterally AUSCULTATION: clear to auscultation bilaterally, no crackles, no rales, no rhonchi and no wheezes Cardio: COMMON NORMALS: regular rate and regular rhythm RATE: regular rate RHYTHM: regular rhythm GI: RECTAL EXAM: deferred Back/Pelvis: COMMON NORMALS: thoraco-lumbar ROM normal Extremity: COMMON NORMALS: normal to inspection, full ROM, no calf tenderness and no pedal edema Neuro: SENSORIUM/ORIENTATION: Yes alert SENSORY EXAM: Yes extremities Psych: COMMON NORMALS: cooperative and speech normal ATTITUDE: Yes calm SPEECH: Yes normal speech Skin: COMMON NORMALS: no rashes or lesions noted, no wounds and no petechiae GENERAL SKIN EXAM: no rashes or lesions noted Course Vital Signs: Vital signs: Vital Signs Temperature 97.9 F 05/16/25 20:45 Pulse Rate 61 05/16/25 20:45 Respiratory Rate 18 05/16/25 20:45 Blood Pressure 123/74 05/16/25 20:45 Pulse Oximetry 99 05/16/25 20:45 Oxygen Delivery Me thod Room Air 05/16/25 20:45 MDM - Ear Medical Decision Making Patient was advised of the exam findings. I did not see any insects or foreign bodies in the ear, however, she does have some swelling of the external auditory canal. There is some mild erythema in the canal as well. The patient was provided with Ciprodex drops in the emergency department I recommended she use these as directed 4 drops in the right ear twice a day for 7 days. She is advised to follow-up with her primary care provider for further evaluation and treatment and return to the emergency department with any worsening symptoms. The patient expressed understanding. Differential Diagnosis Likely otitis externa, otitis media and foreign body in ear No radiology studies performed this visit Critical Care Time Critical Care Time: Critical Care Time: No Discharge Plan Discharge Patient Disposition: Home Clinical Impression: Acute otitis externa of right ear Qualifiers: Otitis externa type: swimmer's ear Qualified Code(s): H60.331 - Swimmer's ear, right ear Condition: Stable Prescriptions: New ciprofloxacin-dexamethasone 0.3-0.1 % drops,suspension 4 drp otic (ear) BID 7 Days Qty: 7.5 0RF No Action Eliquis 2.5 mg tablet 2.5 mg PO BID loratadine 10 mg tablet 10 mg PO DAILY calcium carbonate-vitamin D3 [Caltrate with Vitamin D3] 600 mg(1,500mg) -800 unit tablet 1 tab PO DAILY metformin 500 mg tablet extended release 24hr 500 mg PO DAILY (DME) Right ankle AFO See Rx Instructions .Route .MEDSUPPLY Qty: 1 0RF Rx Instructions: [employer] (DME) orthotic adjustment See Rx Instructions .Route .MEDSUPPLY Qty: 1 0RF Rx Instructions: As directed to [employer] (DME) Cam Boot See Rx Instructions .Route .MEDSUPPLY Qty: 1 0RF Rx Instructions: As directed by Home ANDREA 999 amlodipine 5 mg tablet 5 mg PO DAILY atorvastatin 40 mg tablet See Rx Instructions .ROUTE .COMPLEX Qty: 90 3RF Dose Instruction: Take 1 tablet by mouth once daily Rx Instructions: Take 1 tablet by mouth once daily pantoprazole [Protonix] 40 mg tablet,delayed release (DR/EC) 40 mg PO DAILY Qty: 30 1RF gabapentin 400 mg Capsule 400 mg PO TID metoprolol tartrate 100 mg Tablet 100 mg PO BID clopidogrel 75 mg Tablet 75 mg PO DAILY Qty: 90 3RF albuterol sulfate 90 mcg/actuation HFA aerosol inhaler 2 inh INHALATION Q6H PRN (Reason: bronchospasm) Qty: 8 0RF acetaminophen [Tylenol Extra Strength] 500 mg Tablet 1,000 mg PO Q6H PRN (Reason: Pain) escitalopram oxalate 20 mg tablet 20 mg PO DAILY Jardiance 10 mg tablet 10 mg PO DAILY Discharge Orders: Discharge ED (Routine); Ordered 05/16/25 Ordered By: Irwin Stallworth Referrals: Renu Knowles MD [Primary Care Provider, Internal Medicine] Discharge Diet: Usual diet Discharge Activity: Resume usual activity Patient Instructions: Otitis Externa - Adult, Opioid Safety, Pain Management, Patient Portal & Wilian Instructions Activity Restrictions/Additional Instructions: Use the eardrops as directed. 4 drops in the right ear twice a day for 7 days. Ziml-kny-mdtjxuv Tylenol as directed for any pain. Follow-up with your doctor in 1 week for recheck. Keep the ears clean and dry. Return to the emergency department with any worsening symptoms. Print Language: Wolof Coding Level of Care Code ED Mat Cutter for Cortney Pickering
[2025-05-16] MEDS: ciprofloxacin-dexameth Otic Susp 7.5 mL Btl 4 DROP EAR-RIGHT (21:50)
== END 2025-05-16 21:58 | disposition home or self-care (01) ==
PROVIDERS: Emergency Provider Physician Assistant; PCP Internal Medicine
DX: H60.331 Swimmer's ear, right ear (principal); Z79.01 Long term (current) use of anticoagulants; Z79.02 Long term (current) use of antithrombotics/antiplatelets; Z87.891 Personal history of nicotine dependence; Z86.73 Personal history of transient ischemic attack (TIA), and cerebral infarction without residual deficits; E11.9 Type 2 diabetes mellitus without complications; I11.0 Hypertensive heart disease with heart failure; I50.22 Chronic systolic (congestive) heart failure
CPT/HCPCS: 99283; J9999